=== PATIENT | male | born 1930 | race Caucasian/White ===

== ENCOUNTER 2017-08-01 15:23 | Outpatient (CLI) ==
[2015-07-20 18:18] VITALS: BMI 34.7
--- NOTE | 2017-08-01 16:20 | DI ---
Exam: Lumbar spine complete with obliques. HISTORY: Back pain. Findings: Anterior, lateral, coned-down and bilateral oblique images of the lumbar spine are submitt ed. These demonstrate five [id number], lumbarized vertebrae with straightening of the usual lum bar lordosis. There is multilevel moderate degenerative disc and facet arthropathy. The facet joint s appear aligned and intact. Atherosclerotic calcifications are noted. Impressions: Multilevel moderate degenerative disc and facet arthropathy with no compression fractur e or listhesis in the lumbar spine. Atherosclerosis.
== END 2017-08-01 15:24 | disposition home or self-care (01) ==
LOC: RAD 15:23
PROVIDERS: ATTEND Internal Medicine
DX: M54.9 Dorsalgia, unspecified (principal); M47.9 Spondylosis, unspecified

== ENCOUNTER 2017-09-06 19:59 | Inpatient (IN) ==
[2017-09-06 21:13] VITALS: BMI 34.3
[2017-09-06] MEDS ORDERED: TYLENOL PO PRN (21:28)
[2017-09-06] MEDS ORDERED: VISTARIL INJ IM PRN (21:28)
[2017-09-06] MEDS ORDERED: NITROSTAT SL PRN (21:28)
[2017-09-06] MEDS ORDERED: ATROPINE SULFATE PFS IVP PRN (21:28)
[2017-09-06] MEDS ORDERED: LASIX IVP STA (21:31)
[2017-09-06] MEDS ORDERED: LOMOTIL PO STA (21:34)
[2017-09-06] MEDS ORDERED: LOMOTIL PO PRN (21:34)
[2017-09-06] MEDS ORDERED: ROCEPHIN ONE (21:57)
[2017-09-06] MEDS ORDERED: ROCEPHIN 1 GM in SODIUM CHLORIDE 50 ML IV SCH (22:00)
[2017-09-06] MEDS: DEXTROSE 5%-1/2NS IV SOLUTION 1,000 ML IV SCH (22:12)
[2017-09-06] MEDS: FLAGYL PO SCH (22:13)
[2017-09-06] MEDS: XANAX PO PRN (22:25)
[2017-09-07] MEDS: LASIX IVP SCH (06:28)
[2017-09-07] MEDS: FLAGYL PO SCH ×3 (06:28→20:30)
[2017-09-07] MEDS ORDERED: INSULIN DETEMIR 30 UNIT SQ SCH (06:30)
[2017-09-07] MEDS ORDERED: LEVEMIR SUBCUT SCH (06:30)
[2017-09-07] MEDS: PROTONIX PO SCH (06:33)
--- NOTE | 2017-09-07 07:36 | DI ---
EXAM: Single view of the chest. History: Chest pain and leg edema. Comparison: Chest radiograph 04/29/2015 Findings: Heart is mildly enlarged. Persistent elevation of the right hemidiaphragm. No definite a cute infiltrates. No appreciable pleural fluid and no pneumothorax. No acute osseous abnormalities. Impression: Mild cardiomegaly without acute disease in the chest
[2017-09-07] MEDS ORDERED: NON-FORMULARY MEDICATION (Memantine Hcl/Donepezil Hcl [Namzaric 28 Mg-10 Mg Capsule] 1 EAC PO SCH (09:00)
[2017-09-07] MEDS ORDERED: COZAAR PO SCH (09:00)
[2017-09-07] MEDS ORDERED: NON-FORMULARY MEDICATION (Esomeprazole Magnesium [Nexium] 40 MG) PO SCH (09:00)
[2017-09-07] MEDS: ASPIRIN CHEWABLE PO SCH (09:38)
[2017-09-07] MEDS: LOMOTIL PO SCH ×2 (09:40→20:30)
[2017-09-07] MEDS: COZAAR PO SCH (09:40)
[2017-09-07] MEDS ORDERED: ARICEPT PO SCH (10:00)
[2017-09-07] MEDS ORDERED: NAMENDA PO SCH (10:00)
[2017-09-07] MEDS: NAMENDA PO SCH ×2 (10:14→20:31)
[2017-09-07] MEDS: ARICEPT PO SCH (10:14)
[2017-09-07] MEDS ORDERED: NAMENDA ONE ×2 (10:14→20:31)
[2017-09-07] MEDS: DEXTROSE 5%-1/2NS IV SOLUTION 1,000 ML IV SCH (13:19)
--- NOTE | 2017-09-07 14:37 | CT ---
EXAM: CT of the abdomen pelvis without contrast History: Diarrhea. Comparison: CT abdomen pelvis 10/09/2013 Technique: Multiplanar CT images through the abdomen pelvis were obtained without the administration of IV contrast Findings: Coronary calcifications. Heart is mildly enlarged. Subsegmental atelectasis seen within the lower lungs. No acute osseous abnormalities. No discrete gallstones identified by CT. No focal liver or splenic lesions. Bilateral nephrolithias is measuring up to 3 mm on the right and 3 mm on the left. Adrenal glands are unremarkable. There i s atrophy of the pancreas. No peripancreatic inflammation. No ureteral calculi and no hydronephrosi s. No bowel obstruction. The visualized appendix is not dilated or inflamed. No free air and no as cites. No bladder wall thickening. Prostate is not significantly enlarged. No perirectal inflammat ion. No bowel wall thickening. Impression: 1. No acute intra-abdominal or pelvic process. 2. Nonobstructing bilateral nephrolithiasis. 3. Pancreatic atrophy. 4. Coronary artery disease
--- NOTE | 2017-09-07 16:01 | RS.PTINEVL ---
Subjective - Patient information Date of Evaluation: 09/07/17 Date of Arrival on Unit: 09/06/17 Admitted From:: Home Diagnosis: acute colitis, dehydration, LE edema cellulitis Usual Living Arrangement: With Spouse Living Arrangement Comments: lives at home with elderly spouse Home Environment: House, Stairs (few) Medical History: Hypertension, Dementia, Diabetes, Arthritis Medical History Comments:: sleep apnea, DJD, anemia, chronic renal failure, neuropathy LATEX ALLERGY?: No Medications: see chart Subjective Information/ Patient Comments:: pt's daughter states pt has been using 's w/c due to frequent falls. pt states his legs "give out" - Level of function Prior to this admission, the patient could do the following:: Partially Dependent Ambulation Abilities prior to this admission: pt has assist of family for ADL's Current Level of Function: Partially Dependent Current Equipment Used at Home: Pt uses wifes old w/c and rwx Interventions - Objective Patient Orientation: Person, Place Current Interventions: IV's Range of Motion - ROM Right Upper Extremity AROM: WFL's Left Upper Extremity AROM: WFL's Right Lower Extremity AROM: WFL's Left Lower Extremity AROM: WFL's Muscle Strength - Muscle Strength Right Upper Extremity Strength: Mild Weakness (grossly 4-/5) Left Upper Extremity Strength: Mild Weakness (grossly 4-/5) Right Lower Extremity Strength: Mild Weakness (hip flex 4-/5, knee flex/ext 4-/5 , ankle DF/PF 4-/5) Left Lower Extremity Strength: Mild Weakness (hip flex 4-/5, knee flex/ext 4-/5 , ankle DF/PF 4-/5) Sensation - Sensation Right Upper Extremity Sensation: Intact/Normal Left Upper Extremity Sensation: Intact/Normal Right Lower Extremity Sensation: Intact/Normal Left Lower Extremity Sensation: Intact/Normal Palpation Palpation Findings: None/Normal Balance - Sitting Balance and Reactions Static Sitting Balance: Fair Dynamic Sitting Balance: Poor Sitting Equilibrium Reactions: Delayed Left, Delayed Right Sitting Protective Reactions: Delayed Left, Delayed Right - Standing Balance and Reactions Static Standing Balance: Poor Dynamic Standing Balance: Poor Standing Equilibrium Reactions: Delayed Left, Delayed Right Standing Protective Reactions: Delayed Left, Delayed Right - Comments Balance Assessment Comments: pt with increased lat sway and occasional scissoring Functional Mobility - Bed Mobility Rolling R/L: Mod Assist Supine to Sit: Min Assist, 2 person assist Sit to Supine: Min Assist, 2 person assist - Transfers Sit to Stand: Min Assist, 1 person assist Stand to Sit: Min Assist, 1 person assist - Safety Awareness Safety Awareness: Poor KRYSTA INDEX SCORE: n/a Ambulation - Ambulation Assistive Device Used: Rolling Walker Orthotic/Prosthetic Device: No Distance: 110ft Assistance needed with Ambulation: Min Assist, 1 person assist Quality of Ambulation: requires min x 1 +1 for IV Gait Deviations: Forward posture, Short stride, Deviates from path Ambulation Comments: pt amb with flexed posture, decreased step length, deviation from path Factors Affecting Ambulation: Decreased Balance, Weakness, Decreased Coordination, Decreased Safety, Cognitive Status, Limited Endurance Treatment time - Time with patient Total treatment time: 26 Patient Education - Education Patient Education: Activity Modification, Education of Plan of Care Teaching Recipient: Patient, Family (discussion with pt and dtr regarding POC and plans to dc home) Teaching Methods: Discussion Assessment - Assessment Problem List:: Decreased level of function, Requires training/education, Decreased safety/Risk of falls, Weakness, Cognitive status limits abilities Rehab Potential: Good Further Therapy Indicated?: Yes Comments: pt would benefit from rwx as well as BSC for home due to decreased strength balance and frequent falls. Evaluation Complexity: HISTORY: Medium (DM, OA, neuopathy, falls), EXAM OF BODY SYSTEMS: Medium (strength balance, posture, gait, transfers), CLINICAL PRESENTATION: Medium (evolving), CLINICAL DECISION MAKING: Medium Short Term Goals GOAL #1: pt demonstrate independence rolling and scooting in bed Goal to be met by: 09/10/17 GOAL #2: Transfer sup to/from sit min x 1 sit to/from stand CGA Goal to be met by: 09/10/17 GOAL #3: pt amb with rwx 125ft with CGA with improved posture Goal to be met by: 09/10/17 Senior Living Goals GOAL #1: pt transfer sup to/from sit to/from stand CGA Goal to be met by: 09/13/17 GOAL #2: pt amb with rwx functional household distances with CGA with no LOB Goal to be met by: 09/13/17 GOAL #3: Improve BLE strength 4 to 4+/5 Goal to be met by: 09/13/17 Plan Plan of Care: Therapeutic EX, Therapeutic Activity Other:: gait training Frequency of Treatment: 1-2 X day, as tolerated Duration of Treatment: 6 days Anticipated Discharge Destination: Home Treatment Diagnosis (ICD 10 Codes): Z91.81 risk of falls. R26.81 balance impaired. R 26.2 difficulty walking Has the Physician been added for Co-signature?: Yes
[2017-09-07] MEDS: LEVEMIR SUBCUT SCH (18:20)
[2017-09-07] MEDS: ROCEPHIN 1 GM in SODIUM CHLORIDE 50 ML IV SCH (20:29)
[2017-09-07] MEDS: HUMULIN R SUBCUT PRN (20:29)
[2017-09-07] MEDS: XANAX PO PRN (20:30)
[2017-09-07] MEDS: NEURONTIN PO SCH (20:30)
[2017-09-07] MEDS: TORADOL IVP PRN (23:40)
[2017-09-08] MEDS: DEXTROSE 5%-1/2NS IV SOLUTION 1,000 ML IV SCH (03:50)
[2017-09-08] MEDS: FLAGYL PO SCH ×3 (05:59→21:44)
[2017-09-08] MEDS: PROTONIX PO SCH (05:59)
[2017-09-08] MEDS: LASIX IVP SCH (06:18)
[2017-09-08] MEDS: ASPIRIN CHEWABLE PO SCH (08:10)
[2017-09-08] MEDS: K-DUR PO SCH (09:49)
[2017-09-08] MEDS: COZAAR PO SCH (09:50)
[2017-09-08] MEDS: ARICEPT PO SCH (09:50)
[2017-09-08] MEDS ORDERED: NAMENDA ONE (09:50)
[2017-09-08] MEDS: NAMENDA PO SCH ×2 (09:50→21:44)
[2017-09-08] MEDS: LOMOTIL PO SCH ×2 (09:52→21:44)
[2017-09-08] MEDS: LEVEMIR SUBCUT SCH ×2 (09:56→17:42)
[2017-09-08] MEDS: HUMULIN R SUBCUT PRN ×3 (11:50→21:45)
--- NOTE | 2017-09-08 13:29 | PCM.PROG ---
Attending Provider: ATTENDING PROVIDER: Dr. SHOAIB MATOS This patient is seen with Digna Quintero, Nurse Practitioner. DATE OF SERVICE: 09/08/17 SUBJECTIVE: This 87 year old WHITE/ M was hospitalized 09/06/17. The patient is lying in bed resting comfortably. He has had one stool this morning. Blood pressure improved. He has been eating well. REVIEW OF SYSTEMS: CONSTITUTIONAL: No night sweats. No fatigue, malaise, lethargy. No fever or chills. HEENT: Eyes: No visual changes. No eye pain. No eye discharge. ENT: No runny nose. No epistaxis. No sinus pain. No odynophagia. No congestion. RESPIRATORY: No cough, no congestion. No hemoptysis. No shortness of breath. CARDIOVASCULAR: No angina symptoms. No CHF symptoms. No atypical chest pain for CAD. No palpitations. No orthopnea.. GASTROINTESTINAL: Diarrhea improving. No abdominal pain. No nausea or vomiting. No hematemesis. No hematochezia. GENITOURINARY: No urgency. No frequency. No dysuria. No hematuria. No obstructive symptoms. No discharge. No pain. No significant abnormal bleeding. MUSCULOSKELETAL: No musculoskeletal pain; no joint swelling. NEUROLOGICAL: Awake, alert, oriented to time, place and person. No headache. No neck pain. No syncope. No seizures. No dizziness. PSYCHIATRIC: Not anxious. No depression. No suicidal thoughts. No homicidal thoughts. SKIN: No rash. No lesions. No wounds. ENDOCRINE: No unexplained weight loss. No weight gain. HEMATOLOGIC/LYMPHATIC: No anemia. No purpura. No petechiae. No prolonged or excessive bleeding. No palpable lymph nodes. PHYSICAL EXAMINATION: GENERAL: The patient is awake, alert and oriented, lying in bed in no distress. VITAL SIGNS: Temperature 97.8 F, Pulse 53, Respiratory Rate 16, BP 124/69, Pulse Ox 93% HEENT: Head normocephalic, atraumatic. Eyes: Extraocular muscles are intact. Pupils are equal, round and reactive to light and accommodation. Ears: No lesions. Nose appeared normal. Throat: No exudate or erythema. NECK: Supple. No JVD, no carotid bruit. No lymphadenopathy or thyromegaly. LUNGS: Diminished breath sounds. Clear to auscultation. Percussion note normal. Chest symmetrical. HEART: S1, S2, no S3. No murmurs. No cyanosis or clubbing. No ascites. Pulses: Dorsalis pedis and posterior tibial pulses +1 to +2 both sides. ABDOMEN: Soft. Non-tender. Bowel sounds active. No CVA tenderness. No mass felt. EXTREMITIES: Significantly improved trace leg edema. Full range of motion of all extremities, equal. NEUROLOGIC: No focal deficit. Cranial nerves II through XII are grossly intact. No headache, no double vision or headache. SKIN: Not dry. Intact. Turgor-normal. LYMPHATIC: No palpable lymph nodes/no lymphedema. MUSCULOSKELETAL: Normal joints with no swelling. Muscle tone is normal. LAB REVIEW: 09/08/17 04:40 09/08/17 04:40 09/08/17 04:40: Sodium 138, Potassium 3.4 L, Chloride 101, Carbon Dioxide 26, Anion Gap 14.4, BUN 25 H, Creatinine 1.54 H, Estimated GFR (MDRD) 43.00, BUN/ Creatinine Ratio 16.23, Glucose 82 D, Calcium 8.7, Total Bilirubin 0.7, AST 10 L, ALT 10 L, Alkaline Phosphatase 60, Total Protein 6.0, Albumin 3.0 L, Globulin 3.0, Albumin/Globulin Ratio 1.00 09/08/17 04:40: WBC 8.30, RBC 4.13 L, Hgb 12.2 L, Hct 35.7 L, MCV 86.4, MCH 29.5 , MCHC 34.2, RDW Coeff of Danielle 13.4, Plt Count 124 L, Immature Gran % (Auto) 0.2 , Neut % (Auto) 64.8, Lymph % (Auto) 22.7, [place] % (Auto) 7.1, Eos % (Auto) 4.6, Baso % (Auto) 0.6, Immature Gran # (Auto) 0.0, Neut # (Auto) 5.4, Lymph # (Auto ) 1.9, [place] # (Auto) 0.6, Eos # (Auto) 0.4, Baso # (Auto) 0.1 09/06/17 21:55: Thyroxine (T4) 9.4 ASSESSMENT: 1. ACUTE COLITIS 2. DEHYDRATION IMPROVING 3. HYPOKALEMIA 4. LEG EDEMA PLAN: 1. Echocardiogram 2. Potassium 40 mEq daily 3. D/C IV Lasix 4. Start Lasix 20 mg p.o. daily Plan and coordination of the patient's care discussed in the presence of Sales & Service Associate and nurse. CONDITION: Stable SCRIBED BY: ERNESTINE MANRIQUE Used Car Manager scribed while in presence of service performed by Dr. Matos/Digna Quintero APRN on 09/08/17 ([id number])
[2017-09-08] MEDS: TORADOL IVP PRN ×2 (14:09→21:45)
--- NOTE | 2017-09-08 14:54 | PN ---
DATE OF SERVICE: 09/07/17 SUBJECTIVE: 87 year old white male hospitalized with multiple problems like acute colitis with diarrhea, which seems to be doing better. The patient is still kind of hard of hearing and answers the questions slowly, but he is alert and oriented to person and place. The patient's other problems were leg edema with small superficial stage I ulcers on a few toes on the right side and one on the second toe on the left. The patient's condition has improved. REVIEW OF SYSTEMS: CONSTITUTIONAL: No night sweats. No fatigue, malaise, lethargy. No fever or chills. HEENT: Eyes: No visual changes. No eye pain. No eye discharge. ENT: No runny nose. No epistaxis. No sinus pain. No sore throat. No odynophagia. No congestion. RESPIRATORY: No cough, no congestion. No hemoptysis. No shortness of breath. CARDIOVASCULAR: No angina symptoms. No CHF symptoms. No atypical chest pain for CAD. No palpitations. No orthopnea. GASTROINTESTINAL: No abdominal pain. No nausea or vomiting. No diarrhea or constipation. No hematemesis. No hematochezia. GENITOURINARY: No urgency. No frequency. No dysuria. No hematuria. No obstructive symptoms. No discharge. No pain. No significant abnormal bleeding. MUSCULOSKELETAL: No musculoskeletal pain; no joint swelling. NEUROLOGICAL: No headache. No neck pain. No syncope. No seizures. No dizziness. PSYCHIATRIC: Not anxious. No depression. No suicidal thoughts. No homicidal thoughts. SKIN: No rash. No lesions. No wounds. ENDOCRINE: No unexplained weight loss. No weight gain. HEMATOLOGIC/LYMPHATIC: No anemia. No purpura. No petechiae. No prolonged or excessive bleeding. No palpable lymph nodes. PHYSICAL EXAMINATION: GENERAL: The patient is feeling better and breathing better. Oriented to time , place and person. VITAL SIGNS: Temperature 97, pulse 55, respiratory rate 16, blood pressure 183/ 75, pulse ox 98%. HEENT: Head normocephalic, atraumatic. Eyes: Extraocular muscles are intact. Pupils are equal, round and reactive to light and accommodation. Ears: No lesions. Nose appeared normal. Throat: No exudate or erythema. NECK: Supple. No JVD, no carotid bruit. No lymphadenopathy or thyromegaly. LUNGS: Decreased breath sounds, but clear. Percussion note normal. Chest symmetrical. HEART: S1, S2, no S3. No murmurs. No cyanosis or clubbing. No ascites. Pulses: Dorsalis pedis and posterior tibial pulses +1 to +2 both sides. ABDOMEN: Soft. Nontender. Bowel sounds active. No CVA tenderness. No mass felt. EXTREMITIES: Trace edema. Leg edema has practically subsided and the ulcers are dried up with no drainage. Of course, the patient is on antibiotics. NEUROLOGIC: No focal deficit. Cranial nerves II through XII are grossly intact. No headache, no double vision or headache. SKIN: Not dry. Intact. Turgor - normal. LYMPHATIC: No palpable lymph nodes/no lymphedema. MUSCULOSKELETAL: Normal joints with no swelling. Muscle tone is normal. LABS: Blood sugar was 269 this morning. Creatinine was 1.5, BUN 22. ASSESSMENT: 1. ACUTE COLITIS, RULE OUT C-DIFF. SEEMS TO BE SOMEWHAT BETTER. THE PATIENT' S APPETITE HAS IMPROVED 2. DEHYDRATION SEEMS TO HAVE IMPROVED WITH GOOD SKIN TURGOR ON PHYSICAL EXAMINATION. 3. THE PATIENT WAS GIVEN IV LASIX FOR LEG EDEMA. 4. SMALL SUPERFICIAL STAGE I ULCERS LIKELY FROM LEG EDEMA OR COULD BE FROM VASCULAR PROBLEM. DISCUSSED WITH THE PATIENT. 5. DIABETES MELLITUS DISCUSSED WITH ITS COMPLICATIONS 6. THE PATIENT MAY HAVE PERIPHERAL ARTERIAL DISEASE PLAN: 1. We will order arterial studies when the patient is discharged. 2. Strongly advised to cut down on his diet. The patient is noncompliant. He laughs about his diet. He says that no matter what I say he is going to eat whatever he wants to eat and not going to take anymore medicine than what he is taking. He is pleasantly stubborn. BMI is 35. CONDITION: Stable. PROGNOSIS: Guarded. TIME SPENT: More than 30 minutes. Plan and coordination of the patient's care discussed in the presence of nurse. RAYMOND
[2017-09-08] MEDS: ROCEPHIN 1 GM in SODIUM CHLORIDE 50 ML IV SCH (21:44)
[2017-09-08] MEDS: XANAX PO PRN (21:44)
[2017-09-08] MEDS: NEURONTIN PO SCH (21:44)
[2017-09-09] MEDS: FLAGYL PO SCH ×3 (06:08→20:10)
[2017-09-09] MEDS: PROTONIX PO SCH (06:09)
[2017-09-09] MEDS: LASIX TAB PO SCH (06:09)
[2017-09-09] MEDS: K-DUR PO SCH (08:33)
[2017-09-09] MEDS: ASPIRIN CHEWABLE PO SCH (08:33)
[2017-09-09] MEDS: ARICEPT PO SCH (08:33)
[2017-09-09] MEDS: LOMOTIL PO SCH ×2 (08:34→20:09)
[2017-09-09] MEDS: NAMENDA PO SCH ×2 (08:35→20:10)
[2017-09-09] MEDS: COZAAR PO SCH (08:40)
[2017-09-09] MEDS: LEVEMIR SUBCUT SCH ×2 (08:46→17:25)
[2017-09-09] MEDS: HUMULIN R SUBCUT PRN ×3 (12:22→20:10)
[2017-09-09] MEDS: ROCEPHIN 1 GM in SODIUM CHLORIDE 50 ML IV SCH (20:09)
[2017-09-09] MEDS: NEURONTIN PO SCH (20:10)
[2017-09-09] MEDS: XANAX PO PRN (20:40)
[2017-09-09] MEDS: TORADOL IVP PRN (20:40)
[2017-09-10] MEDS: MORPHINE 4 MG/ML VIAL IVP PRN (02:46)
[2017-09-10] MEDS: HUMULIN R SUBCUT PRN ×4 (05:38→20:10)
[2017-09-10] MEDS: FLAGYL PO SCH ×3 (05:39→20:07)
[2017-09-10] MEDS: LASIX TAB PO SCH (05:39)
[2017-09-10] MEDS: PROTONIX PO SCH (05:39)
[2017-09-10] MEDS: LOMOTIL PO SCH ×2 (08:46→20:07)
[2017-09-10] MEDS: NAMENDA PO SCH ×2 (08:46→20:08)
[2017-09-10] MEDS: ASPIRIN CHEWABLE PO SCH (08:46)
[2017-09-10] MEDS: ARICEPT PO SCH (08:47)
[2017-09-10] MEDS: K-DUR PO SCH (08:47)
[2017-09-10] MEDS: COZAAR PO SCH (08:47)
[2017-09-10] MEDS: LEVEMIR SUBCUT SCH ×2 (08:48→17:23)
[2017-09-10] MEDS: ROCEPHIN 1 GM in SODIUM CHLORIDE 50 ML IV SCH (20:05)
[2017-09-10] MEDS: XANAX PO PRN (20:08)
[2017-09-10] MEDS: NEURONTIN PO SCH (20:08)
[2017-09-10] MEDS: TORADOL IVP PRN (20:23)
[2017-09-11] MEDS: MORPHINE 4 MG/ML VIAL IVP PRN ×2 (00:02→14:14)
[2017-09-11] MEDS: PROTONIX PO SCH (05:30)
[2017-09-11] MEDS: FLAGYL PO SCH ×3 (05:31→20:32)
[2017-09-11] MEDS: NAMENDA PO SCH ×2 (08:16→20:32)
[2017-09-11] MEDS: LOMOTIL PO SCH ×2 (08:16→20:32)
[2017-09-11] MEDS: K-DUR PO SCH (08:16)
[2017-09-11] MEDS: ASPIRIN CHEWABLE PO SCH (08:16)
[2017-09-11] MEDS: LEVEMIR SUBCUT SCH ×2 (08:17→18:05)
[2017-09-11] MEDS: ARICEPT PO SCH (08:17)
[2017-09-11] MEDS: COZAAR PO SCH (08:17)
[2017-09-11] MEDS ORDERED: DECADRON 4 MG/ML SDV IM STA (08:18)
[2017-09-11] MEDS ORDERED: SODIUM CHLORIDE 1,000 ML IV SCH (08:30)
--- NOTE | 2017-09-11 09:53 | PCM.PROG ---
Attending Provider: ATTENDING PROVIDER: Dr. SHOAIB MATOS This patient is seen with Digna Quintero, Nurse Practitioner. DATE OF SERVICE: 09/11/17 SUBJECTIVE: This 87 year old WHITE/ M was hospitalized 09/06/17. The patient is sitting in the chair, alert. He had right leg pain last night radiating to foot. He has history of falls at home. He is still with diarrhea, is eating well. REVIEW OF SYSTEMS: CONSTITUTIONAL: Weakness. No night sweats. No malaise, lethargy. No fever or chills. HEENT: Eyes: No visual changes. No eye pain. No eye discharge. ENT: No runny nose. No epistaxis. No sinus pain. No odynophagia. No congestion. RESPIRATORY: No cough, no congestion. No hemoptysis. No shortness of breath. CARDIOVASCULAR: No angina symptoms. No CHF symptoms. No atypical chest pain for CAD. No palpitations. No orthopnea.. GASTROINTESTINAL: Diarrhea. No abdominal pain. No nausea or vomiting. No hematemesis. No hematochezia. GENITOURINARY: No urgency. No frequency. No dysuria. No hematuria. No obstructive symptoms. No discharge. No pain. No significant abnormal bleeding. MUSCULOSKELETAL: No musculoskeletal pain; no joint swelling. NEUROLOGICAL: Awake, alert, oriented to time, place and person. No headache. No neck pain. No syncope. No seizures. No dizziness. PSYCHIATRIC: Not anxious. No depression. No suicidal thoughts. No homicidal thoughts. SKIN: No rash. No lesions. No wounds. ENDOCRINE: No unexplained weight loss. No weight gain. HEMATOLOGIC/LYMPHATIC: No anemia. No purpura. No petechiae. No prolonged or excessive bleeding. No palpable lymph nodes. PHYSICAL EXAMINATION: GENERAL: The patient is awake, alert and oriented, sitting in chair in no distress. VITAL SIGNS: Temperature 97.2 F, Pulse 76, Respiratory Rate 18, BP 142/69, Pulse Ox 95% HEENT: Head normocephalic, atraumatic. Eyes: Extraocular muscles are intact. Pupils are equal, round and reactive to light and accommodation. Ears: No lesions. Nose appeared normal. Throat: No exudate or erythema. NECK: Supple. No JVD, no carotid bruit. No lymphadenopathy or thyromegaly. LUNGS: Diminished breath sounds. Clear to auscultation. Percussion note normal. Chest symmetrical. HEART: S1, S2, no S3. No murmurs. No cyanosis or clubbing. No ascites. Pulses: Dorsalis pedis and posterior tibial pulses +1 to +2 both sides. ABDOMEN: Soft. Non-tender. Bowel sounds active. No CVA tenderness. No mass felt. EXTREMITIES: Trace edema. Full range of motion of all extremities, equal. NEUROLOGIC: No focal deficit. Cranial nerves II through XII are grossly intact. No headache, no double vision or headache. SKIN: Warm and dry. Intact. Turgor-normal. LYMPHATIC: No palpable lymph nodes/no lymphedema. MUSCULOSKELETAL: Normal joints with no swelling. Muscle tone is normal. LAB REVIEW: 09/11/17 04:15 09/11/17 04:15 09/11/17 04:15: Sodium 141, Potassium 4.6, Chloride 105, Carbon Dioxide 29, Anion Gap 11.6, BUN 45 H, Creatinine 2.10 H, Estimated GFR (MDRD) 30.00, BUN/ Creatinine Ratio 21.42, Glucose 82 D, Calcium 9.0, Total Bilirubin 0.3, AST 21 , ALT 17, Alkaline Phosphatase 59, Total Protein 5.6 L, Albumin 2.9 L, Globulin 2.7, Albumin/Globulin Ratio 1.07 09/11/17 04:15: WBC 8.25, RBC 3.85 L, Hgb 11.6 L, Hct 35.2 L, MCV 91.4, MCH 30.1 , MCHC 33.0, RDW Coeff of Danielle 14.1, Plt Count 128 L, Immature Gran % (Auto) 0.2 , Neut % (Auto) 56.8, Lymph % (Auto) 29.7, [place] % (Auto) 7.3, Eos % (Auto) 5.0, Baso % (Auto) 1.0, Immature Gran # (Auto) 0.0, Neut # (Auto) 4.7, Lymph # (Auto ) 2.5, [place] # (Auto) 0.6, Eos # (Auto) 0.4, Baso # (Auto) 0.1 ASSESSMENT: 1. ACUTE COLITIS 2. DEHYDRATION IMPROVING 3. HYPOKALEMIA 4. LEG EDEMA 5. RIGHT LEG PAIN (SCIATICA) PLAN: 1. X-ray L-spine 2. 1 cc Decadron 3. IV fluids one bag Plan and coordination of the patient's care discussed in the presence of Zyglo Inspector and nurse. CONDITION: Stable SCRIBED BY: ERNESTINE MANRIQUE Pillowcase Cleaner scribed while in presence of service performed by Dr. Matos/Digna Quintero APRN on 09/11/17 ([id number])
[2017-09-11] MEDS: HUMULIN R SUBCUT PRN ×3 (11:07→20:51)
--- NOTE | 2017-09-11 14:19 | PN ---
DATE OF SERVICE: 09/08/17 SUBJECTIVE: The patient was seen and examined with the nurse practitioner. The patient's condition is stable. His leg edema has subsided, educated about diabetes and its complication. He is noncompliant. The patient's prognosis is poor. The patient will be discharged home on antibiotics and p.o. Lasix. CONDITION: Stable. TIME SPENT: More than 30 minutes. Plan and coordination of the patient's care discussed in the presence of nurse. RAYMOND
--- NOTE | 2017-09-11 14:30 | PN ---
DATE OF SERVICE: 09/09/17 SUBJECTIVE: The patient was hospitalized with edema, shortness of breath, early CHF with cellulitis at tip of some of the toes, extreme weakness. The patient's condition has improved. He is up and about. The is in the room. REVIEW OF SYSTEMS: CONSTITUTIONAL: No night sweats. No fatigue, malaise, lethargy. No fever or chills. HEENT: Eyes: No visual changes. No eye pain. No eye discharge. ENT: No runny nose. No epistaxis. No sinus pain. No sore throat. No odynophagia. No congestion. RESPIRATORY: No cough, no congestion. No hemoptysis. No shortness of breath. CARDIOVASCULAR: No angina symptoms. No CHF symptoms. No atypical chest pain for CAD. No palpitations. No orthopnea. GASTROINTESTINAL: No abdominal pain. No nausea or vomiting. No diarrhea or constipation. No hematemesis. No hematochezia. GENITOURINARY: No urgency. No frequency. No dysuria. No hematuria. No obstructive symptoms. No discharge. No pain. No significant abnormal bleeding. MUSCULOSKELETAL: No musculoskeletal pain; no joint swelling. NEUROLOGICAL: No headache. No neck pain. No syncope. No seizures. No dizziness. PSYCHIATRIC: Not anxious. No depression. No suicidal thoughts. No homicidal thoughts. SKIN: No rash. No lesions. No wounds. ENDOCRINE: No unexplained weight loss. No weight gain. HEMATOLOGIC/LYMPHATIC: No anemia. No purpura. No petechiae. No prolonged or excessive bleeding. No palpable lymph nodes. PHYSICAL EXAMINATION: HEENT: Head normocephalic, atraumatic. Eyes: Extraocular muscles are intact. Pupils are equal, round and reactive to light and accommodation. Ears: No lesions. Nose appeared normal. Throat: No exudate or erythema. NECK: Supple. No JVD, no carotid bruit. No lymphadenopathy or thyromegaly. LUNGS: Clear to auscultation. Percussion note normal. Chest symmetrical. HEART: S1, S2, no S3. No murmurs. No cyanosis or clubbing. No ascites. Pulses: Dorsalis pedis and posterior tibial pulses +1 to +2 both sides. ABDOMEN: Soft. Nontender. Bowel sounds active. No CVA tenderness. No mass felt. EXTREMITIES: Leg edema +1 to trace. The superficial ulcers have been drying up. Full range of motion of all extremities, equal. NEUROLOGIC: No focal deficit. Cranial nerves II through XII are grossly intact. No headache, no double vision or headache. SKIN: Not dry. Intact. Turgor - normal. LYMPHATIC: No palpable lymph nodes/no lymphedema. MUSCULOSKELETAL: Normal joints with no swelling. Muscle tone is normal. ASSESSMENT: 1. CELLULITIS OF THE TOES, RESOLVED. SUPERFICIAL ULCERS, ISCHEMIC ULCERS COULD BE FROM PERIPHERAL ARTERIAL DISEASE. 2. LEG EDEMA HAS SUBSIDED TO SOME EXTENT. EDUCATION CARRIED OUT ABOUT: The patient was explained about arterial studies. Also explained about diabetes and its complications. The patient is noncompliant, never follows the lifestyle , never takes his medicine on a regular basis. CHF discussed with him. The is present in the room. TIME SPENT: More than 30 minutes. Plan and coordination of the patient's care discussed in the presence of nurse. RAYMOND
--- NOTE | 2017-09-11 14:38 | PN ---
DATE OF SERVICE: 09/10/17 SUBJECTIVE: The patient is up and about doing well. No symptoms of CHF, feeling better. Oriented to place and person. The is in the room. REVIEW OF SYSTEMS: CONSTITUTIONAL: No night sweats. No fatigue, malaise, lethargy. No fever or chills. HEENT: Eyes: No visual changes. No eye pain. No eye discharge. ENT: No runny nose. No epistaxis. No sinus pain. No sore throat. No odynophagia. No congestion. RESPIRATORY: No cough, no congestion. No hemoptysis. No shortness of breath. CARDIOVASCULAR: No angina symptoms. No CHF symptoms. No atypical chest pain for CAD. No palpitations. No orthopnea. GASTROINTESTINAL: No abdominal pain. No nausea or vomiting. No diarrhea or constipation. No hematemesis. No hematochezia. GENITOURINARY: No urgency. No frequency. No dysuria. No hematuria. No obstructive symptoms. No discharge. No pain. No significant abnormal bleeding. MUSCULOSKELETAL: No musculoskeletal pain; no joint swelling. NEUROLOGICAL: No headache. No neck pain. No syncope. No seizures. No dizziness. PSYCHIATRIC: Not anxious. No depression. No suicidal thoughts. No homicidal thoughts. SKIN: No rash. No lesions. No wounds. ENDOCRINE: No unexplained weight loss. No weight gain. HEMATOLOGIC/LYMPHATIC: No anemia. No purpura. No petechiae. No prolonged or excessive bleeding. No palpable lymph nodes. PHYSICAL EXAMINATION: HEENT: Head normocephalic, atraumatic. Eyes: Extraocular muscles are intact. Pupils are equal, round and reactive to light and accommodation. Ears: No lesions. Nose appeared normal. Throat: No exudate or erythema. NECK: Supple. No JVD, no carotid bruit. No lymphadenopathy or thyromegaly. LUNGS: Clear to auscultation. Percussion note normal. Chest symmetrical. HEART: S1, S2, no S3. No murmurs. No cyanosis or clubbing. No ascites. Pulses: Dorsalis pedis and posterior tibial pulses +1 to +2 both sides. ABDOMEN: Soft. Nontender. Bowel sounds active. No CVA tenderness. No mass felt. EXTREMITIES: No edema. Full range of motion of all extremities, equal. NEUROLOGIC: No focal deficit. Cranial nerves II through XII are grossly intact. No headache, no double vision or headache. SKIN: Not dry. Intact. Turgor - normal. LYMPHATIC: No palpable lymph nodes/no lymphedema. MUSCULOSKELETAL: Normal joints with no swelling. Muscle tone is normal. EDUCATION CARRIED OUT ABOUT: Diabetes mellitus. I strongly advised arterial studies. He says he will think about it. CHF discussed in detail along with the . The patient's prognosis is poor considering patient's noncompliance and advanced disease. TIME SPENT: 60 minutes. Plan and coordination of the patient's care discussed in the presence of nurse. RAYMOND
[2017-09-11] MEDS: ROCEPHIN 1 GM in SODIUM CHLORIDE 50 ML IV SCH (20:32)
[2017-09-11] MEDS: NEURONTIN PO SCH (20:33)
[2017-09-12] MEDS: XANAX PO PRN (00:12)
[2017-09-12] MEDS: HUMULIN R SUBCUT PRN ×3 (06:21→16:12)
[2017-09-12] MEDS ORDERED: KAYEXALATE SUSP PO STA (08:12)
[2017-09-12] MEDS: ASPIRIN CHEWABLE PO SCH (08:30)
[2017-09-12] MEDS: LOMOTIL PO SCH (08:30)
[2017-09-12] MEDS: COZAAR PO SCH (08:31)
[2017-09-12] MEDS: NAMENDA PO SCH (08:31)
[2017-09-12] MEDS: ARICEPT PO SCH (08:31)
[2017-09-12] MEDS: FLAGYL PO SCH ×2 (08:31→13:02)
[2017-09-12] MEDS: PROTONIX PO SCH (08:32)
[2017-09-12] MEDS: LEVEMIR SUBCUT SCH (08:33)
--- NOTE | 2017-09-12 09:48 | US ---
EXAM: Ultrasound retroperitoneal complete. HISTORY: Renal disease, elevated renal function tests. COMPARISON: 08/29/2013. TECHNIQUE: Multiple adair scale and color Doppler images. FINDINGS: Right kidney measures 11.1 x 6.3 x 4.3 cm. The left kidney measures 12.5 x 4.7 x 4.1 cm. Cortical thickness in both kidneys is normal. There is no hydronephrosis. Urinary bladder is collapsed and not well evaluated. IMPRESSION: No acute sonographic abnormality of the kidneys.
[2017-09-12 14:58] VITALS: TEMP 97.5
--- NOTE | 2017-09-12 15:36 | CM.DICTOOL ---
ADMISSION: 09/06/17 19:59 DISCHARGE: 09/12/17 DATE OF SERVICE: 09/12/17 FINAL DIAGNOSIS ACUTE COLITIS DEHYDRATION, IMPROVED HYPOKALEMIA/HYPERKALEMIA LEG EDEMA, IMPROVED LEG PAIN, GREATER ON THE RIGHT WEIGHT LOSS CAD HYPERTENSION DYSLIPIDEMIA CHF COPD SLEEP APNEA (DECLINES C-PAP) PVD DM, TYPE 2- UNCONTROLLED GERD CHRONIC KIDNEY DISEASE (DR. 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, 2015 DEMENTIA ANXIETY CATARACT EXTRACTIONS, 2003 NEVER SMOKER LAST VITALS Temp Pulse Resp BP Pulse Ox 97.8 F 79 20 152/76 H 93 L 09/12/17 09:43 09/12/17 09:43 09/12/17 09:43 09/12/17 09:43 09/12/17 09:43 TAKE THESE MEDICATIONS AT HOME Alprazolam (Xanax) 0.5 mg PO BEDTIME PRN PRN Reason: anxiety, restlessness Last Admin: 09/12/17 00:12 Dose: 0.5 mg Aspirin (Aspirin Chewable) 81 mg PO DAILYWM [facility] Last Admin: 09/12/17 08:30 Dose: 81 mg Diphenoxylate HCl/Atropine (Lomotil) 1 tab PO BID PRN #15 ONLY Last Admin: 09/12/17 08:30 Dose: 1 tab Donepezil HCl (Aricept) 10 mg PO DAILY [facility] Last Admin: 09/12/17 08:31 Dose: 10 mg Fursemide (Lasix) 20 mg PO DAILY x5 DAYS/WEEK, MON - MON, SKIP MON AND SUNDAYS Gabapentin (Neurontin) 300 mg PO BEDTIME [facility] Last Admin: 09/11/17 20:33 Dose: 300 mg Insulin Detemir (Levemir) 30 unit SUBCUT BIDPC [facility] Last Admin: 09/12/17 08:33 Dose: 30 unit Lomotil 2.5-0.025 mg one tablet PO BID PRN DIARRHEA Losartan Potassium (Cozaar) 100 mg PO DAILY [facility] Last Admin: 09/12/17 08:31 Dose: 100 mg Memantine (Namenda) 10 mg PO Q12HR [facility] Last Admin: 09/12/17 08:31 Dose: 10 mg Pantoprazole Sodium (Protonix) 40 mg PO QDAC [facility] Last Admin: 09/12/17 08:32 Dose: 40 mg ALLERGIES clarithromycin [From Biaxin] Adverse Reaction (Verified 09/06/17 21:44) levofloxacin [From Levaquin] Adverse Reaction (Verified 09/06/17 21:44) HOME MEDICATION CHANGES MADE DURING THIS HOSPITALIZATION LOSARTAN POTASSIUM (COZAAR) 25 MG PO DAILY INCREASED TO 100 MG PO DAILY SEE NEW PRESCRIPTIONS NEW PRESCRIPTIONS: DONEPEZIL HCL (ARICEPT) 10 MG, TAKE ONE TABLET BY MOUTH DAILY GABAPENTIN (NEURONTIN) 300 MG, TAKE ONE TABLET BY MOUTH AT BEDTIME LOSARTAN POTASSIUM (COZAAR) 100 MG, TAKE ONE TABLET BY MOUTH DAILY LASIX 20 MG, TAKE ONE TABLET BY MOUTH DAILY ON MONDAY THROUGH MONDAY (5 DAYS PER WEEK) LOMOTIL 1 TABLET BY MOUTH TWICE DAILY IF NEEDED (PRN) FOR DIARRHEA SMOKING: NEVER SMOKER DISEASE SPECIFIC EDUCATION: COLITIS DEHYDRATION HYPOKALEMIA/HYPERKALEMIA LEG PAIN LEG EDEMA HOME MEDICATIONS NEW PRESCRIPTIONS REFERRALS FOLLOW UP MEDICAL EQUIPMENT (BEDSIDE COMMODE) LAB REVIEW: 09/12/17 04:30 09/12/17 13:30 09/12/17 13:30: Potassium 4.9 09/12/17 06:28: Potassium 5.8 H 09/12/17 04:30: Sodium 138, Potassium 6.6 H* D, Chloride 106, Carbon Dioxide 26 , Anion Gap 12.6, BUN 47 H, Creatinine 1.75 H, Estimated GFR (MDRD) 37.00, BUN/ Creatinine Ratio 26.85, Glucose 293 H, Calcium 9.6, Total Bilirubin 0.5, AST 18 , ALT 19, Alkaline Phosphatase 71, Total Protein 6.5, Albumin 3.3 L, Globulin 3.2, Albumin/Globulin Ratio 1.03 09/12/17 04:30: WBC 14.37 H D, RBC 4.13 L, Hgb 12.2 L, Hct 37.8 L, MCV 91.5, MCH 29.5, MCHC 32.3, RDW Coeff of Danielle 14.0, Plt Count 144, Immature Gran % (Auto ) 0.7, Neut % (Auto) 86.2, Lymph % (Auto) 8.8 L, [place] % (Auto) 4.0, Eos % (Auto ) 0.0, Baso % (Auto) 0.3, Immature Gran # (Auto) 0.1, Neut # (Auto) 12.4 H, Lymph # (Auto) 1.3, [place] # (Auto) 0.6, Eos # (Auto) 0.0, Baso # (Auto) 0.0 PLAN: DISCHARGE HOME TODAY RETURN TO SEE DR. MATOS IN HIS OFFICE ON 09/18/17 AT 10:30 A.M. KEEP YOUR APPOINTMENT TO HAVE LOWER EXTREMITY ARTERIAL STUDIES AT [facility] 09/14/17 AT 12:30 A.M. BRING A PHOTO IDENTIFICATION BRING YOUR MEDICARE CARD [employer] WILL DELIVER A BEDSIDE COMMODE TO YOUR HOME IN THE NEXT FEW DAYS. PHONE NUMBER [phone] RESUME YOUR HOME MEDICATIONS PER LIST PROVIDED BY THE NURSING STAFF PLEASE NOTE THE INCREASE IN YOUR LOSARTAN POTASSIUM (COZAAR) TO 100 MG PO DAILY DO NOT TAKE YOUR BUMETANIDE (BUMEX) NEW PRESCRIPTIONS DONEPEZIL HCL (ARICEPT) 10 MG, TAKE ONE TABLET BY MOUTH DAILY GABAPENTIN (NEURONTIN) 300 MG, TAKE ONE TABLET BY MOUTH AT BEDTIME LOSARTAN POTASSIUM (COZAAR) 100 MG, TAKE ONE TABLET BY MOUTH DAILY LASIX 20 MG, TAKE ONE TABLET BY MOUTH DAILY ON MONDAY THROUGH MONDAY (5 DAYS PER WEEK) LOMOTIL 1 TABLET BY MOUTH TWICE DAILY IF NEEDED (PRN) FOR DIARRHEA ACTIVITY GET PLENTY OF REST AT HOME. GRADUALLY INCREASE YOUR ACTIVITY LEVEL ACCORDING TO YOUR TOLERATION DIET CONSISTENT CARBS SUMMARY THE PATIENT IS ALERT AND ORIENTED X3. HE CURRENTLY RESIDES AT HOME WITH HIS SPOUSE. THEIR DAUGHTER IS SUPPORTIVE OF HIS NEEDS WHEN NECESSARY. MR. TELLO REQUIRES ASSISTANCE WITH AMBULATION BY MEANS OF USING A "WALKING STICK." MR. TELLO HAS REQUESTED A BEDSIDE COMMODE DUE TO HIS HAVING DIFFICULTY WALKING AND HISTORY OF FREQUENT FALLS. [employer] FROM [place], [place] WILL DELIVER THE EQUIPMENT. THE PATIENT'S SKIN TURGOR IS FAIR. HE HAS MULTIPLE BRUISES ON HIS ARMS IN VARIOUS STAGES OF HEALING. HE ALSO HAS A LARGE AREA OF SCARRING TO THE CALF AREA FROM A PRIOR BURN. HE HAS NO DECUBITUS ULCERS PRESENT. THE CHRONIC EDEMA TO THE LOWER EXTREMITIES HAS IMPROVED A GREAT DEAL SINCE ADMISSION WELL HAS THE HYDRATION AND NUTRITIONAL STATUS. AND MRS. TELLO ALONG WITH THEIR DAUGHTER ARE ALL AWARE OF TODAY'S DISCHARGE PLANS. INFORMATION HAS BEEN PROVIDED VERBALLY TO THE DAUGHTER REGARDING THE MEDICATIONS, ARTERIAL STUDIES SCHEDULED AND FOLLOW UP VISIT. SHE WILL [facility]. YOANDY ESCOBAR APRN SHOAIB MATOS M.D.
[2017-09-12 16:41] VITALS: BP 161/89
--- NOTE | 2017-09-14 11:13 | ECHO2D ---
Date of Exam: 09/12/17 Ordering Physician: DR. SHOAIB MATOS Room #: 114 Reason for Echo: CARDIOMEGALY, WEAKNESS M-Mode Normal Adult Results LV Dimensions Normal Adult Results AoV Opening excursions >1.6 >1.6 LVEDD-base- 3.5-5.8 5.6 Ao root dimensions 2.0-3.7 4.1 LVESD-base- 3.1-4.6 L. Atrium dimensions 1.9-3.8 5.2 Post. Wall thickness 0.8-1.1 1.5 IV septum (thickness) 0.7-1.2 1.4 Post. Wall excursion 0.72-1.3 NORMAL Septal motion NORMAL Systolic motion R. Ventricular cavity 1.5-2.0 NORMAL LVEF 60% 57% Paradoxical septal wall motion NORMAL 2-D : DILATED AORTIC ROOT, DILATED LEFT ATRIAL CAVITY, NORMAL LEFT VENTRICULAR CONTRACTILITY, NORMAL VALVES, NO EFFUSION, NO THROMBUS, BORDERLINE LEFT VENTRICLE CAVITY, ENLARGED LEFT ATRIAL CAVITY M-MODE: MV: NORMAL AV: NORMAL TV: NORMAL PV: CHAMBER SIZE: ENLARGED LEFT ATRIAL AND LEFT VENTRICLE CAVITIES WALL MOTION: NORMAL PERICARDIUM: NORMAL INTERPRETATION: 1. LEFT VENTRICULAR HYPERTROPHY WITH ENLARGED LEFT ATRIAL CAVITY 2. BORDERLINE ENLARGED LEFT VENTRICLE CAVITY 3. LEFT VENTRICULAR EJECTION FRACTION NORMAL 4. NORMAL VALVES MTDD
--- NOTE | 2017-09-14 13:47 | PN ---
DATE OF SERVICE: 09/11/17 SUBJECTIVE: The patient was seen and examined with the Nurse Practitioner today. The patient is doing better. The kidney functions are 2.1 with BUN same. The kidney functions are rising. He is off IV Lasix. He has chronic kidney disease, advised to drink some fluids. He is going to be put on IV fluids. Cardiovascular status stable. The patient is still pending echo. Again education about Diabetes Mellitus complications carried out. His prognosis is poor because he is noncompliant. CONDITION: Stable. TIME SPENT: More than 30 minutes. Plan and coordination of the patient's care discussed in the presence of nurse. RAYMOND
--- NOTE | 2017-09-14 13:57 | PN ---
DATE OF SERVICE: 09/12/17 SUBJECTIVE: 87 year old white male hospitalized with acute colitis, dehydration and edema with superficial ulcers on the toe and few of them on both feet. The patient's condition has improved and his edema is much less. No ulcer left it is all healed up with mild scab on second toe on left foot is practically healed up. The patient says that he is feeling better. REVIEW OF SYSTEMS: CONSTITUTIONAL: No night sweats. No fatigue, malaise, lethargy. No fever or chills. HEENT: Eyes: No visual changes. No eye pain. No eye discharge. ENT: No runny nose. No epistaxis. No sinus pain. No sore throat. No odynophagia. No congestion. Feeling some better. RESPIRATORY: No cough, no congestion. No hemoptysis. No shortness of breath. CARDIOVASCULAR: No angina symptoms. No CHF symptoms. No atypical chest pain for CAD. No palpitations. No orthopnea. GASTROINTESTINAL: No abdominal pain. No nausea or vomiting. No diarrhea or constipation. No hematemesis. No hematochezia. GENITOURINARY: No urgency. No frequency. No dysuria. No hematuria. No obstructive symptoms. No discharge. No pain. No significant abnormal bleeding. MUSCULOSKELETAL: No musculoskeletal pain; no joint swelling. NEUROLOGICAL: No headache. No neck pain. No syncope. No seizures. No dizziness. PSYCHIATRIC: Not anxious. No depression. No suicidal thoughts. No homicidal thoughts. SKIN: No rash. No lesions. No wounds. ENDOCRINE: No unexplained weight loss. No weight gain. HEMATOLOGIC/LYMPHATIC: No anemia. No purpura. No petechiae. No prolonged or excessive bleeding. No palpable lymph nodes. PHYSICAL EXAMINATION: GENERAL: The patient is oriented to time, place and person. VITAL SIGNS: Temperature 98.1, pulse 88, respiratory rate 20, blood pressure 160/80 and pulse ox 93%. HEENT: Head normocephalic, atraumatic. Eyes: Extraocular muscles are intact. Pupils are equal, round and reactive to light and accommodation. Ears: No lesions. Nose appeared normal. Throat: No exudate or erythema. NECK: Supple. No JVD, no carotid bruit. No lymphadenopathy or thyromegaly. LUNGS: Decreased breath sounds but clear to auscultation. Percussion note normal. Chest symmetrical. HEART: S1, S2, no S3. No murmurs. No cyanosis or clubbing. No ascites. Pulses: Dorsalis pedis and posterior tibial pulses +1 to +2 both sides. ABDOMEN: Soft. Nontender. Bowel sounds active. No CVA tenderness. No mass felt. EXTREMITIES: No edema. Full range of motion of all extremities, equal. NEUROLOGIC: No focal deficit. Cranial nerves II through XII are grossly intact. No headache, no double vision or headache. SKIN: Not dry. Intact. Turgor - normal. LYMPHATIC: No palpable lymph nodes/no lymphedema. MUSCULOSKELETAL: Normal joints with no swelling. Muscle tone is normal. LABS: Creatinine is improved from 2.1 to 1.7 with BUN of 47. The patient had hyperkalemia 6.6 and the repeat one showed 5.8. The patient had an echocardiogram done today which showed borderline LV cavity enlargement and enlarged LA cavity and LVH with normal LV contractility. All reports are discussed with the patient. ASSESSMENT: 1. Hyperkalemia, will treat with Kayexalate 2. Renal Azotemia seems to be subsided it was from aggressive diuretic therapy. The patient underwent 24 hour urine for protein and also ultrasound of kidneys, reports pending. PLAN: 1. Give Kayexalate 2. The patient is noncompliant, advised to have A1c between 6-7 and he says that "I'm not going to watch diet" Levemir dose should be increased but he says that "I'll take whatever dose I feel like it." The patient is confused. 3. Losartan dose has been increased, blood pressure systolic is still mildly elevated. 4. If his potassium is OK which is going to be repeated this afternoon then the patient will be discharged home. 5. He is going to have arterial study done as an outpatient. CONDITION: Stable with multiple medical problems. TIME SPENT: More than 30 minutes. Plan and coordination of the patient's care discussed in the presence of nurse. RAYMOND
--- NOTE | 2017-09-14 13:58 | PN ---
09/06/17: Level 5 09/07/17: Intermediate 09/08/17: Intermediate 09/09/17: Intermediate 09/10/17: Intermediate 09/11/17: Intermediate 09/12/17: D as in discharge MTDD
--- NOTE | 2017-09-14 14:29 | DS ---
DATE OF SERVICE: 09/12/17 FINAL DIAGNOSIS: ACUTE COLITIS DEHYDRATION, IMPROVED HYPOKALEMIA/HYPERKALEMIA LEG EDEMA, IMPROVED LEG PAIN, GREATER ON THE RIGHT WEIGHT LOSS CAD HYPERTENSION DYSLIPIDEMIA CHF COPD SLEEP APNEA (DECLINES C-PAP) PVD DM, TYPE 2- UNCONTROLLED GERD CHRONIC KIDNEY DISEASE (DR. 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, 2015 DEMENTIA ANXIETY CATARACT EXTRACTIONS, 2003 LAST VITALS: Temp Pulse Resp BP Pulse Ox 97.8 F 79 20 152/76 H 93 L TAKE THESE MEDICATIONS AT HOME: Alprazolam (Xanax) 0.5 mg PO BEDTIME PRN Aspirin (Aspirin Chewable) 81 mg PO DAILYWM [facility] Diphenoxylate HCl/Atropine (Lomotil) 1 tab PO BID PRN #15 ONLY Donepezil HCl (Aricept) 10 mg PO DAILY [facility] Fursemide (Lasix) 20 mg PO DAILY x5 DAYS/WEEK, MON - MON, SKIP MON AND SUNDAYS Gabapentin (Neurontin) 300 mg PO BEDTIME [facility] Insulin Detemir (Levemir) 30 unit SUBCUT BIDPC [facility] Lomotil 2.5-0.025 mg one tablet PO BID PRN DIARRHEA Losartan Potassium (Cozaar) 100 mg PO DAILY [facility] Memantine (Namenda) 10 mg PO Q12HR [facility] Pantoprazole Sodium (Protonix) 40 mg PO QDAC [facility] ALLERGIES: clarithromycin [From Biaxin] Adverse Reaction (Verified 09/06/17 21:44) levofloxacin [From Levaquin] Adverse Reaction (Verified 09/06/17 21:44) HOME MEDICATION CHANGES MADE DURING THIS HOSPITALIZATION: LOSARTAN POTASSIUM (COZAAR) 25 MG PO DAILY INCREASED TO 100 MG PO DAILY SEE NEW PRESCRIPTIONS NEW PRESCRIPTIONS: DONEPEZIL HCL (ARICEPT) 10 MG, TAKE ONE TABLET BY MOUTH DAILY GABAPENTIN (NEURONTIN) 300 MG, TAKE ONE TABLET BY MOUTH AT BEDTIME LOSARTAN POTASSIUM (COZAAR) 100 MG, TAKE ONE TABLET BY MOUTH DAILY LASIX 20 MG, TAKE ONE TABLET BY MOUTH DAILY ON MONDAY THROUGH MONDAY (5 DAYS PER WEEK) LOMOTIL 1 TABLET BY MOUTH TWICE DAILY IF NEEDED (PRN) FOR DIARRHEA SMOKING: NEVER SMOKER DISEASE SPECIFIC EDUCATION: COLITIS DEHYDRATION HYPOKALEMIA/HYPERKALEMIA LEG PAIN LEG EDEMA HOME MEDICATIONS NEW PRESCRIPTIONS REFERRALS FOLLOW UP MEDICAL EQUIPMENT (BEDSIDE COMMODE) PLAN: DISCHARGE HOME TODAY RETURN TO SEE DR. MATOS IN HIS OFFICE ON 09/18/17 AT 10:30 A.M. KEEP YOUR APPOINTMENT TO HAVE LOWER EXTREMITY ARTERIAL STUDIES AT [facility] 09/14/17 AT 12:30 A.M. : BRING A PHOTO IDENTIFICATION BRING YOUR MEDICARE CARD [employer] WILL DELIVER A BEDSIDE COMMODE TO YOUR HOME IN THE NEXT FEW DAYS. PHONE NUMBER [phone] RESUME YOUR HOME MEDICATIONS PER LIST PROVIDED BY THE NURSING STAFF PLEASE NOTE THE INCREASE IN YOUR LOSARTAN POTASSIUM (COZAAR) TO 100 MG PO DAILY DO NOT TAKE YOUR BUMETANIDE (BUMEX) ACTIVITY: GET PLENTY OF REST AT HOME. GRADUALLY INCREASE YOUR ACTIVITY LEVEL ACCORDING TO YOUR TOLERATION DIET: CONSISTENT [facility]: This is an 87 year old white male was presented to our office complaining that he had had vomiting and diarrhea for the past two days. He was weak, arrived in a wheelchair and was unable to walk. He was very pale. He was admitted. kidney function was elevated showing mild dehydration however he also had worsening leg edema with red ulcers on the tops of both of his feet. He was given IV Lasix 20mg for the first two days after his admission and his leg edema has resolved. Initially he was experiencing hypokalemia likely due to the amount of diarrhea. He was placed on 40meq twice a day of oral Potassium. Over the course of the first 48 hours his leg edema resolved however he did suffer acute kidney injury with an increase in BUN and creatinine. Yesterday BUN was 45 and Creatinine 2.1. We restarted the IV fluids at 42cc an hour slow normal saline. Today they have significantly improved. Creatinine is back down to 1.7. We did do an x-ray of the L spine due to the right sciatic symptoms. 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 Since he is still here his amount of stools have significantly decreased and he still always has some lose stools due to being on Metformin at home but these are only limited to 2-3 times daily which is about his normal. He has gone back to his normal. He has been eating well at 75-100% of his meals. He is experiencing some leg weakness slightly due to back pain and generalized deterioration. He is requesting a bedside commode to have at home which we will provide an order for. He was started on Rocephin 1 gram daily due to some questionable atelectasis on chest x -ray. He was also put on Flagyl 500mg PO three times a day due to the diarrhea. CAT scan of the abdomen showed no acute diverticulitis along with no acute processes or changes associated with colitis. We put him on Protonix 40meq daily which he will go home on. Again due to gradually worsening dementia he was started on Aricept 10mg daily which he will continue with at home. He was previously on Bumex daily which we will change to Lasix 20mg daily to take home. He did have some elevated blood pressures likely due to IV fluids, kidney disease however his Cozaar was increased to 100mg daily and this has been well controlled. Today on the day of discharge 140/70. Again his labs have significantly improved and his symptoms have improved, diarrhea has improved, kidney functions better. We will send him home. He is going to have arterial studies done on the at [facility] of the lower extremities however the ulcers on his feet did resolve as the leg swelling resolved. He has not had any vomiting and again he is eating well. He will be discharged in stable condition today. TIME SPENT: More than 60 minutes. RAYMOND
== END 2017-09-12 17:00 | disposition home or self-care (01) | DRG 392 ==
LOC: MEDSURG B 19:59
PROVIDERS: ADMIT Internal Medicine; ATTEND Internal Medicine
DX: K52.9 Noninfective gastroenteritis and colitis, unspecified (principal); N17.9 Acute kidney failure, unspecified; E86.0 Dehydration; E87.6 Hypokalemia; E87.5 Hyperkalemia; R60.0 Localized edema; M79.604 Pain in right leg; M54.31 Sciatica, right side; R63.4 Abnormal weight loss; I25.10 Atherosclerotic heart disease of native coronary artery without angina pectoris; E78.5 Hyperlipidemia, unspecified; I50.9 Heart failure, unspecified; J44.9 Chronic obstructive pulmonary disease, unspecified; G47.30 Sleep apnea, unspecified; I73.9 Peripheral vascular disease, unspecified; E11.65 Type 2 diabetes mellitus with hyperglycemia; K21.9 Gastro-esophageal reflux disease without esophagitis; N18.9 Chronic kidney disease, unspecified; D64.9 Anemia, unspecified; D69.6 Thrombocytopenia, unspecified; F03.90 Unspecified dementia, unspecified severity, without behavioral disturbance, psychotic disturbance, mood disturbance, and anxiety; F41.9 Anxiety disorder, unspecified; M51.36 Other intervertebral disc degeneration, lumbar region; L89.91 Pressure ulcer of unspecified site, stage 1; Z91.19 Patient's noncompliance with other medical treatment and regimen; Z91.81 History of falling; Z79.4 Long term (current) use of insulin; Z79.899 Other long term (current) drug therapy
CPT/HCPCS: 36415; 76770; 80053; 81001; 82550; 82803; 82962; 84132; 84436; 84443; 84484; 85025; 87015; 87045; 87493; 87899; 93005; 93010; 97802

== ENCOUNTER 2017-09-14 14:52 | Inpatient (IN) ==
[2017-09-14 15:02] VITALS: BMI 34.0
[2017-09-14] MEDS ORDERED: LOVENOX SUBCUT STA (15:27)
--- NOTE | 2017-09-14 15:31 | ED.PDOC ---
General ED Provider: Dr. TRACY INMAN Chief Complaint: Extremity Swelling/Pain Stated Complaint: Swelling of Rt Lower extremity for several weeks. Sent to [facility] for US of RT LE today which returned pos for DVT Rt CFV and Popiteal. Sent her by PCP Dr Matos for work up and additional eval. Recently discharged after hospitalization for Chronic Diarrhea. Continues to have diarrhea Time Seen by Physician: 15:05 Mode of Arrival: Walk-In Information Source: Patient, Family Primary Care Provider: SHOAIB MATOS Referred to ED by: PCP Nursing and Triage Documentation Reviewed and Agree: Yes Reviewed sepsis parameters & appropriate labs ordered?: Yes System Inflammatory Response Syndrome: Not Applicable Sepsis Protocol: For patient's 13 years and over: Temp is 96.8 and below OR 101 and greater Pulse >90 BPM Resp >20/minute Acutely Altered Mental Status Are patient's symptoms suggestive of a new infection, such as: -Pneumonia -Skin, Soft Tissue -Endocarditis -UTI -Bone, Joint Infection -Implantable Device -Acute Abdominal Infection -Wound Infection -Meningitis -Blood Stream Catheter Infection -Unknown Review of Systems - Review Of Systems Constitutional: Reports: Weakness Eyes: Reports: No symptoms Ears, Nose, Mouth, Throat: Reports: No symptoms Respiratory: Reports: No symptoms Cardiac: Reports: No symptoms, Other (edema RLE/pos homans RLE) GI: Reports: No symptoms : Reports: No symptoms Musculoskeletal: Reports: No symptoms, Other (swelling RLE) Skin: Reports: No symptoms Neurological: Reports: No symptoms Endocrine: Reports: No symptoms Hematologic/Lymphatic: Reports: No symptoms All Other Systems: Reviewed and Negative Past Medical History - Past Medical History Previously Healthy: No Endocrine: Reports: DM 1 ((insulin)), Dyslipidemia Cardiovascular: Reports: Hypertension, DVT (RIGHT (OLD RECORD)) Respiratory: Reports: COPD Hematological: Reports: None, Anemia ((OLD RECORD)) Gastrointestinal: Reports: None Genitourinary: Reports: CKD Neuro/Psych: Reports: None, Other (SLLEP APNEA(OLD RECORD)) Musculoskeletal: Reports: None, Arthritis ((OLD RECORD)) Cancer: Reports: None Other Pertinent Past Medical History: FALL IN TUB 04/26/2014 SEEN AT [facility] - Surgical History General Surgical History: Reports: Unknown - Family History Family History: Reports: Unknown - Social History Smoking Status: Never smoker Hx Substance Use: No Alcohol Screening: None Lives: With family Physical Exam - Physical Exam Appearance: Ill-appearing, Obese Ill-appearing: Moderate Pain Distress: Mild Eyes: NEMESIO, EOMI, Conjunctiva clear ENT: Ears normal, Nose normal, Oropharynx normal Neck: Supple (Neg JVD) Respiratory: Airway patent, Breath sounds clear, Breath sounds equal Cardiovascular: RRR, Pulses normal, No rub, No murmur GI/: Soft, Nontender, No masses, Bowel sounds normal, No Organomegaly Musculoskeletal: Normal strength, ROM intact (Pos 2 plus edema RLE/pain in Rt groin and Rt distal thight/knee region ) Skin: Warm, Normal color Neurological: Sensation intact, Motor intact, Reflexes intact, Alert, Oriented Psychiatric: Affect appropriate, Mood appropriate Re-Evaluation - Re-Evaluation Time of Re-Evaluation: 17:00 (have initiated Lovenox) Status: Unchanged Vital Signs Stable: Yes Appearance: NAD Lungs: Clear Skin: Warm and Dry Additional Comments: Discussed with Dr Matos who requests admission of patient Critical Care Note - Critical Care Note Total Time (mins): 60 (Monitored patients condition and discussed wit PCP/ admitted 23 obs) Course - Course Hematology/Chemistry: 09/14/17 15:38 09/14/17 15:38 Orders, Labs, Meds: Lab Review 09/14/17 09/14/17 09/14/17 15:38 15:38 15:38 WBC 8.21 D RBC 4.06 L Hgb 12.1 L Hct 37.2 L MCV 91.6 MCH 29.8 MCHC 32.5 RDW Coeff of Danielle 14.3 Plt Count 119 L Immature Gran % (Auto) 0.4 Neut % (Auto) 61.5 Lymph % (Auto) 22.0 [place] % (Auto) 7.2 Eos % (Auto) 8.0 H Baso % (Auto) 0.9 Immature Gran # (Auto) 0.0 Neut # (Auto) 5.1 Lymph # (Auto) 1.8 [place] # (Auto) 0.6 Eos # (Auto) 0.7 Baso # (Auto) 0.1 PT 10.7 INR 1.07 APTT 25.0 Sodium 138 Potassium 4.3 Chloride 105 Carbon Dioxide 29 Anion Gap 8.3 BUN 54 H Creatinine 2.10 H Estimated GFR (MDRD) 30.00 BUN/Creatinine Ratio 25.71 Glucose 351 H Calcium 9.1 Total Bilirubin 0.4 AST 13 L ALT 15 Alkaline Phosphatase 73 Total Protein 6.3 Albumin 3.7 Globulin 2.6 Albumin/Globulin Ratio 1.42 Orders Category Date Time Status CBC W/ AUTO DIFF Stat LAB 09/14/17 15:38 Completed CMP [COMPREHENSIVE METABOLIC PANEL] Stat LAB 09/14/17 15:38 Completed PT WITH INR Stat LAB 09/14/17 15:38 Completed PTT [PARTIAL THROMBOPLASTIN TIME] Stat LAB 09/14/17 15:38 Completed Enoxaparin Sodium [Lovenox] MEDS 09/14/17 15:27 Discontinued 100 mg SUBCUT ONCE STA Medications Generic Name Dose Route Start Last Admin Trade Name Freq PRN Reason Stop Dose Admin Acetaminophen 650 mg 09/14/17 17:41 Tylenol PO Q4H PRN Pain Alprazolam 0.5 mg 09/14/17 17:49 Xanax PO BEDTIME PRN Anxiety Aspirin 81 mg 09/15/17 09:00 Aspirin Chewable PO DAILY CHUY Diphenoxylate HCl/Atropine tab 09/14/17 17:49 Lomotil PO BID PRN Diarrhea Donepezil HCl 10 mg 09/15/17 09:00 Aricept PO DAILY CHUY Enoxaparin Sodium 100 mg 09/15/17 09:00 Lovenox SUBCUT Q12HR CHUY Furosemide 20 mg 09/14/17 18:00 Lasix Tab PO MOTUWETHFR [facility] Gabapentin 300 mg 09/14/17 21:00 Neurontin PO BEDTIME CHUY Losartan Potassium 100 mg 09/15/17 09:00 Cozaar PO DAILY CHUY Non-Formulary Medication 0.5 mg 09/14/17 18:00 Bumetanide [Bumetanide] PO 3 TIMES PER WEEK CHUY Non-Formulary Medication 40 mg 09/15/17 09:00 Esomeprazole Magnesium [Nexium] PO DAILY CHUY Non-Formulary Medication 30 unit 09/15/17 06:30 Insulin Detemir [Levemir Flexpen] SQ BIDAC CHUY Non-Formulary Medication 1 each 09/15/17 09:00 Memantine Hcl/Donepezil Hcl [Namzaric 28 Mg-10 Mg Capsule] PO DAILY CHUY Non-Formulary Medication 10 mg 09/14/17 21:00 Rosuvastatin Calcium [Crestor] PO BEDTIME CHUY Discontinued Medications Generic Name Dose Route Start Last Admin Trade Name Freq PRN Reason Stop Dose Admin Enoxaparin Sodium 100 mg 09/14/17 15:27 09/14/17 15:41 Lovenox SUBCUT 09/14/17 15:28 100 mg ONCE STA Administration Vital Signs: Temp Pulse Resp BP Pulse Ox 09/14/17 14:54 96.5 F L 69 20 167/60 H 95 MARTHA Risk Score MARTHA Risk Score: Risk Score Odds of by 30D 0 0.1 (0.1-0.2) 1 0.3 (0.2-0.3) 2 0.4 (0.3-0.5) 3 0.7 (0.6-0.9) 4 1.2 (1.0-1.5) 5 2.2 (1.9-2.6) 6 3.0 (2.5-3.6) 7 4.8 (3.8-6.1) Departure - Departure Time of Disposition: 17:30 Disposition: PLACED OBSERVATION Discharge Problem: Dvt femoral (deep venous thrombosis), Deep vein thrombosis (DVT) of popliteal vein of right lower extremity Condition: Fair Pt referred to PMD for follow-up: Yes (Dr Matos) IPMP verified?: No Allergies/Adverse Reactions: Allergies clarithromycin [From Biaxin] Adverse Reaction (Verified 09/14/17 15:01) levofloxacin [From Levaquin] Adverse Reaction (Verified 09/14/17 15:01) Home Medications: Ambulatory Orders Alprazolam [Xanax] 0.5 mg PO BEDTIME PRN 01/25/13 Insulin Detemir [Levemir Flexpen] 30 unit SQ BIDAC 10/09/13 Rosuvastatin Calcium [Crestor] 10 mg PO BEDTIME 04/29/15 Aspirin [Aspirin Chewable] 81 mg PO DAILY 07/20/15 Esomeprazole Magnesium [Nexium] 40 mg PO DAILY 09/06/17 Memantine HCl/Donepezil HCl [Namzaric 28 mg-10 mg Capsule] 1 each PO DAILY 09/06 Diphenoxylate HCl/Atropine [Lomotil 2.5-0.025 mg Tablet] 1 each PO BID PRN #15 tablet 09/12/17 Donepezil HCl [Aricept] 10 mg PO DAILY #30 tablet 09/12/17 Furosemide [Lasix Tab] 20 mg PO MOTUWETHFR #20 tablet 09/12/17 Gabapentin 300 mg PO BEDTIME #30 capsule 09/12/17 Losartan Potassium [Cozaar] 100 mg PO DAILY #30 tablet 09/12/17 Bumetanide 0.5 mg PO 3 TIMES PER WEEK 09/14/17 Disposition Discussed With: Patient, Family Miscellaneous Complaint Exam - Febrile Illness/Adult Complaint/Exam Onset/Duration: several weeks ago Symptoms Are: Still present Timing: Constant Initial Severity: Moderate Current Severity: Moderate Aggravating: Reports: Unknown Alleviating: Reports: None Associated Signs and Symptoms: Denies: Headache, Fluid intake, Short of air, Cough, Sore throat, Nausea, Vomiting, Chills, Diaphoresis, Dysuria, Arthralgia, Stiff neck, Myalgia, Rash, Altered mental status Related History: Reports: Similar episode Pseudomonas Risk Factors: Reports: None Serious Bacterial Infection Risk Factors: Reports: None Current Antibiotic Use: No Specific Findings: Absent: Meningeal signs, Diaphoresis, Lymphadenopathy, Petechiae Differential Diagnoses: Other (DVT)
[2017-09-14] MEDS ORDERED: LOMOTIL PO PRN (17:49)
[2017-09-14] MEDS ORDERED: NON-FORMULARY MEDICATION (Bumetanide [Bumetanide] 0.5 MG) PO SCH (18:00)
[2017-09-14] MEDS ORDERED: LASIX TAB PO SCH (18:00)
[2017-09-14] MEDS ORDERED: CRESTOR ONE (19:50)
[2017-09-14] MEDS ORDERED: TORADOL IVP STA (19:58)
[2017-09-14] MEDS ORDERED: NON-FORMULARY MEDICATION (Rosuvastatin Calcium [Crestor] 10 MG) PO SCH (21:00)
[2017-09-14] MEDS: LEVEMIR SUBCUT SCH (21:30)
[2017-09-14] MEDS: NEURONTIN PO SCH (21:31)
[2017-09-14] MEDS ORDERED: VASOTEC IV IVP PRN (22:44)
[2017-09-14] MEDS: XANAX PO PRN (23:19)
[2017-09-14] MEDS: TYLENOL PO PRN (23:19)
[2017-09-15] MEDS: LEVEMIR SUBCUT SCH ×2 (05:46→18:14)
[2017-09-15] MEDS ORDERED: INSULIN DETEMIR 30 UNIT SQ SCH (06:30)
[2017-09-15] MEDS ORDERED: NON-FORMULARY MEDICATION (Esomeprazole Magnesium [Nexium] 40 MG) PO SCH (09:00)
[2017-09-15] MEDS ORDERED: NON-FORMULARY MEDICATION (Memantine Hcl/Donepezil Hcl [Namzaric 28 Mg-10 Mg Capsule] 1 EAC PO SCH (09:00)
[2017-09-15] MEDS ORDERED: LOVENOX SUBCUT SCH (09:00)
--- NOTE | 2017-09-15 09:11 | PCM.PROG ---
Attending Provider: ATTENDING PROVIDER: Dr. SHOAIB MATOS This patient is seen with Digna Quintero, Nurse Practitioner. DATE OF SERVICE: 09/15/17 SUBJECTIVE: This 87 year old WHITE/ M was hospitalized 09/14/17. The patient is lying in bed, alert. Arterial study from [facility] revealed possible blood clot in common femoral and popliteal vein right leg. Report is not available at this time. REVIEW OF SYSTEMS: CONSTITUTIONAL: No night sweats. No fatigue, malaise, lethargy. No fever or chills. HEENT: Eyes: No visual changes. No eye pain. No eye discharge. ENT: No runny nose. No epistaxis. No sinus pain. No odynophagia. No congestion. RESPIRATORY: No cough, no congestion. No hemoptysis. No shortness of breath. CARDIOVASCULAR: No angina symptoms. No CHF symptoms. No atypical chest pain for CAD. No palpitations. No orthopnea. Trace edema. GASTROINTESTINAL: No abdominal pain. No nausea or vomiting. No diarrhea or constipation. No hematemesis. No hematochezia. GENITOURINARY: No urgency. No frequency. No dysuria. No hematuria. No obstructive symptoms. No discharge. No pain. No significant abnormal bleeding. MUSCULOSKELETAL: Intermittent right leg pain. NEUROLOGICAL: Awake, alert, oriented to time, place and person. No headache. No neck pain. No syncope. No seizures. No dizziness. PSYCHIATRIC: Not anxious. No depression. No suicidal thoughts. No homicidal thoughts. SKIN: No rash. No lesions. No wounds. ENDOCRINE: No unexplained weight loss. No weight gain. HEMATOLOGIC/LYMPHATIC: No anemia. No purpura. No petechiae. No prolonged or excessive bleeding. No palpable lymph nodes. PHYSICAL EXAMINATION: GENERAL: The patient is awake, alert and oriented, lying in bed in no distress. VITAL SIGNS: Temperature 97.7 F, Pulse 64, Respiratory Rate 18, BP 145/71, Pulse Ox 95% HEENT: Head normocephalic, atraumatic. Eyes: Extraocular muscles are intact. Pupils are equal, round and reactive to light and accommodation. Ears: No lesions. Nose appeared normal. Throat: No exudate or erythema. NECK: Supple. No JVD, no carotid bruit. No lymphadenopathy or thyromegaly. LUNGS: Diminished breath sounds. Clear to auscultation. Percussion note normal. Chest symmetrical. HEART: S1, S2, no S3. No murmurs. No cyanosis or clubbing. No ascites. Pulses: Dorsalis pedis and posterior tibial pulses +1 to +2 both sides. ABDOMEN: Soft. Non-tender. Bowel sounds active. No CVA tenderness. No mass felt. EXTREMITIES: Trace edema bilateral lower extremities. Right lower extremity no redness, negative Jose Juan's sign. No abnormal swelling. Full range of motion of all extremities, equal. NEUROLOGIC: No focal deficit. Cranial nerves II through XII are grossly intact. No headache, no double vision or headache. SKIN: Not dry. Intact. Turgor-normal. LYMPHATIC: No palpable lymph nodes/no lymphedema. MUSCULOSKELETAL: Normal joints with no swelling. Muscle tone is normal. LAB REVIEW: 09/15/17 04:30 09/15/17 04:30 09/15/17 04:30: Sodium 141, Potassium 4.2, Chloride 105, Carbon Dioxide 26, Anion Gap 14.2, BUN 49 H, Creatinine 1.90 H, Estimated GFR (MDRD) 34.00, BUN/ Creatinine Ratio 25.78, Glucose 195 H D, Calcium 8.8, Total Bilirubin 0.5, AST 14 L, ALT 15, Alkaline Phosphatase 68, Total Protein 5.9, Albumin 3.3 L, Globulin 2.6, Albumin/Globulin Ratio 1.27 09/15/17 04:30: WBC 6.99, RBC 3.98 L, Hgb 11.8 L, Hct 36.3 L, MCV 91.2, MCH 29.6 , MCHC 32.5, RDW Coeff of Danielle 14.1, Plt Count 129 L, Immature Gran % (Auto) 0.1 , Neut % (Auto) 54.0, Lymph % (Auto) 29.2, [place] % (Auto) 7.0, Eos % (Auto) 8.6 H , Baso % (Auto) 1.1, Immature Gran # (Auto) 0.0, Neut # (Auto) 3.8, Lymph # ( Auto) 2.0, [place] # (Auto) 0.5, Eos # (Auto) 0.6, Baso # (Auto) 0.1 09/14/17 15:38: Sodium 138, Potassium 4.3, Chloride 105, Carbon Dioxide 29, Anion Gap 8.3, BUN 54 H, Creatinine 2.10 H, Estimated GFR (MDRD) 30.00, BUN/ Creatinine Ratio 25.71, Glucose 351 H, Calcium 9.1, Total Bilirubin 0.4, AST 13 L, ALT 15, Alkaline Phosphatase 73, Total Protein 6.3, Albumin 3.7, Globulin 2.6 , Albumin/Globulin Ratio 1.42 09/14/17 15:38: PT 10.7, INR 1.07, APTT 25.0 09/14/17 15:38: WBC 8.21 D, RBC 4.06 L, Hgb 12.1 L, Hct 37.2 L, MCV 91.6, MCH 29.8, MCHC 32.5, RDW Coeff of Danielle 14.3, Plt Count 119 L, Immature Gran % (Auto) 0.4, Neut % (Auto) 61.5, Lymph % (Auto) 22.0, [place] % (Auto) 7.2, Eos % (Auto) 8.0 H, Baso % (Auto) 0.9, Immature Gran # (Auto) 0.0, Neut # (Auto) 5.1, Lymph # (Auto) 1.8, [place] # (Auto) 0.6, Eos # (Auto) 0.7, Baso # (Auto) 0.1 ASSESSMENT: Please see below. 1. DVT RIGHT LOWER EXTREMITY (COMMON FEMORAL, POPLITEAL) 2. HYPERTENSION 3. CKD PLAN: 1. Toradol 30 mg IV q.8hr p.r.n. 2. IV fluids NS 1L today at 75 cc/hr 3. Norvasc 5 mg at night Plan and coordination of the patient's care discussed in the presence of Mechanical Process Engineer and nurse. CONDITION: Stable SCRIBED BY: ERNESTINE MANRIQUE International Specialist scribed while in presence of service performed by Dr. Matos/Digna Quintero APRN on 09/15/17 ([id number])
[2017-09-15] MEDS: SODIUM CHLORIDE 1,000 ML IV SCH ×6 (09:34→20:50)
[2017-09-15] MEDS: COZAAR PO SCH (09:35)
[2017-09-15] MEDS: LASIX TAB PO SCH (09:35)
[2017-09-15] MEDS: ASPIRIN CHEWABLE PO SCH (09:35)
[2017-09-15] MEDS: PROTONIX PO SCH (09:35)
[2017-09-15] MEDS: ARICEPT PO SCH (09:35)
[2017-09-15] MEDS: NAMENDA PO SCH ×2 (09:35→20:32)
[2017-09-15] MEDS: LOVENOX SUBCUT SCH (09:42)
--- NOTE | 2017-09-15 15:21 | US ---
EXAM: Ultrasound venous Doppler right and left lower extermity HISTORY: Pain, swelling COMPARISON: 10/30/17 TECHNIQUE: Venous duplex ultrasound of the right and left lower extremity was performed using color, adair-scale, and Doppler flow imaging. FINDINGS: Right: There is partial deep venous thrombus in the profunda femoral, femoral, popliteal, and perone al veins. No thrombus identified in the common femoral, greater saphenous veins. Posterior tibial a nd anterior tibial veins not visualized. Left: There is normal color flow and compression of the left common femoral, greater saphenous, prof unda femoral, femoral, popliteal, peroneal, posterior tibial, and anterior tibial veins without evide nce of intraluminal thrombus. No reflux is identified. IMPRESSION: 1. Right lower extremity deep venous thrombus. 2. No left lower extremity deep venous thrombosis. Critical finding called to patient nurse 3:13 p.m. 09/25/2017
[2017-09-15] MEDS: CRESTOR PO SCH (20:32)
[2017-09-15] MEDS: NEURONTIN PO SCH (20:32)
[2017-09-15] MEDS: NORVASC PO SCH (20:32)
[2017-09-15] MEDS: XANAX PO PRN (20:40)
[2017-09-16] MEDS: TORADOL IVP PRN (01:49)
[2017-09-16] MEDS: PROTONIX PO SCH (05:32)
[2017-09-16] MEDS: LEVEMIR SUBCUT SCH ×2 (05:34→17:10)
[2017-09-16] MEDS: COZAAR PO SCH (08:02)
[2017-09-16] MEDS: ASPIRIN CHEWABLE PO SCH (08:02)
[2017-09-16] MEDS: NAMENDA PO SCH ×2 (08:02→20:22)
[2017-09-16] MEDS: ARICEPT PO SCH (08:02)
[2017-09-16] MEDS: LOVENOX SUBCUT SCH (08:03)
[2017-09-16] MEDS: XANAX PO PRN (20:22)
[2017-09-16] MEDS: NEURONTIN PO SCH (20:22)
[2017-09-16] MEDS: CRESTOR PO SCH (20:22)
[2017-09-16] MEDS: NORVASC PO SCH (20:23)
[2017-09-17] MEDS: TORADOL IVP PRN ×3 (02:58→23:51)
[2017-09-17] MEDS: LEVEMIR SUBCUT SCH ×2 (05:45→17:09)
[2017-09-17] MEDS: PROTONIX PO SCH (05:46)
[2017-09-17] MEDS: COZAAR PO SCH (08:02)
[2017-09-17] MEDS: NAMENDA PO SCH ×2 (08:02→20:35)
[2017-09-17] MEDS: ARICEPT PO SCH (08:02)
[2017-09-17] MEDS: ASPIRIN CHEWABLE PO SCH (08:02)
[2017-09-17] MEDS: LOVENOX SUBCUT SCH (08:02)
[2017-09-17] MEDS ORDERED: TORADOL IVP PRN ×2 (08:06→08:13)
[2017-09-17] MEDS: TYLENOL PO PRN (13:14)
[2017-09-17] MEDS ORDERED: MORPHINE 2 MG/ML SYRINGE IVP STA (13:45)
[2017-09-17] MEDS ORDERED: MORPHINE 4 MG/ML VIAL ONE (13:55)
[2017-09-17] MEDS: NEURONTIN PO SCH ×2 (14:00→20:35)
[2017-09-17] MEDS: CRESTOR PO SCH (20:34)
[2017-09-17] MEDS: NORVASC PO SCH (20:35)
[2017-09-17] MEDS: XANAX PO PRN (20:36)
[2017-09-18] MEDS ORDERED: MORPHINE 4 MG/ML VIAL ONE (03:48)
[2017-09-18] MEDS ORDERED: MORPHINE 4 MG/ML VIAL IVP STA (03:52)
[2017-09-18] MEDS: LEVEMIR SUBCUT SCH (05:37)
[2017-09-18] MEDS: PROTONIX PO SCH (05:37)
[2017-09-18] MEDS: NAMENDA PO SCH (08:23)
[2017-09-18] MEDS: COZAAR PO SCH (08:23)
[2017-09-18] MEDS: ARICEPT PO SCH (08:23)
[2017-09-18] MEDS: NEURONTIN PO SCH (08:23)
[2017-09-18] MEDS: LASIX TAB PO SCH (08:23)
[2017-09-18] MEDS: ASPIRIN CHEWABLE PO SCH (08:23)
[2017-09-18] MEDS: LOVENOX SUBCUT SCH (08:24)
--- NOTE | 2017-09-18 08:58 | PCM.PROG ---
Attending Provider: ATTENDING PROVIDER: Dr. SHOAIB MATOS This patient is seen with Digna Quintero, Nurse Practitioner. DATE OF SERVICE: 09/18/17 SUBJECTIVE: This 87 year old WHITE/ M was hospitalized 09/14/17. The patient is sitting in bed, alert. He states he is ready to go home. He has been having mild pain right lower extremity. Other than that complaint, no pain no signs or symptom, no DVT. Discussed discharge home on blood thinner. Risks versus benefits discussed in detail. REVIEW OF SYSTEMS: CONSTITUTIONAL: No night sweats. No fatigue, malaise, lethargy. No fever or chills. HEENT: Eyes: No visual changes. No eye pain. No eye discharge. ENT: No runny nose. No epistaxis. No sinus pain. No odynophagia. No congestion. RESPIRATORY: No cough, no congestion. No hemoptysis. No shortness of breath. CARDIOVASCULAR: No angina symptoms. No CHF symptoms. No atypical chest pain for CAD. No palpitations. No orthopnea.. GASTROINTESTINAL: No abdominal pain. No nausea or vomiting. No diarrhea or constipation. No hematemesis. No hematochezia. GENITOURINARY: No urgency. No frequency. No dysuria. No hematuria. No obstructive symptoms. No discharge. No pain. No significant abnormal bleeding. MUSCULOSKELETAL: Right leg pain. NEUROLOGICAL: Awake, alert, oriented to time, place and person. No headache. No neck pain. No syncope. No seizures. No dizziness. PSYCHIATRIC: Not anxious. No depression. No suicidal thoughts. No homicidal thoughts. SKIN: No rash. No lesions. No wounds. ENDOCRINE: No unexplained weight loss. No weight gain. HEMATOLOGIC/LYMPHATIC: No anemia. No purpura. No petechiae. No prolonged or excessive bleeding. No palpable lymph nodes. PHYSICAL EXAMINATION: GENERAL: The patient is awake, alert and oriented, sitting in bed in no distress. VITAL SIGNS: Temperature 97.0 F, Pulse 67, Respiratory Rate 20, BP 147/66, Pulse Ox 95% HEENT: Head normocephalic, atraumatic. Eyes: Extraocular muscles are intact. Pupils are equal, round and reactive to light and accommodation. Ears: No lesions. Nose appeared normal. Throat: No exudate or erythema. NECK: Supple. No JVD, no carotid bruit. No lymphadenopathy or thyromegaly. LUNGS: Diminished breath sounds. Clear to auscultation. Percussion note normal. Chest symmetrical. HEART: S1, S2, no S3. No murmurs. No cyanosis or clubbing. No ascites. Pulses: Dorsalis pedis and posterior tibial pulses +1 to +2 both sides. ABDOMEN: Soft. Non-tender. Bowel sounds active. No CVA tenderness. No mass felt. EXTREMITIES: Trace edema. Negative Homans'. Soft, nontender, no redness. Full range of motion of all extremities, equal. NEUROLOGIC: No focal deficit. Cranial nerves II through XII are grossly intact. No headache, no double vision or headache. SKIN: Not dry. Intact. Turgor-normal. LYMPHATIC: No palpable lymph nodes/no lymphedema. MUSCULOSKELETAL: Normal joints with no swelling. Muscle tone is normal. LAB REVIEW: 09/18/17 04:25 09/18/17 04:25 09/18/17 04:25: Sodium 141, Potassium 4.6, Chloride 105, Carbon Dioxide 30, Anion Gap 10.6, BUN 34 H, Creatinine 1.59 H, Estimated GFR (MDRD) 41.00, BUN/ Creatinine Ratio 21.38, Glucose 230 H, Calcium 9.2, Total Bilirubin 0.5, AST 23 , ALT 25, Alkaline Phosphatase 61, Total Protein 5.5 L, Albumin 2.8 L, Globulin 2.7, Albumin/Globulin Ratio 1.04 09/18/17 04:25: WBC 6.21, RBC 3.88 L, Hgb 11.4 L, Hct 35.0 L, MCV 90.2, MCH 29.4 , MCHC 32.6, RDW Coeff of Danielle 13.9, Plt Count 116 L, Immature Gran % (Auto) 0.3 , Neut % (Auto) 62.3, Lymph % (Auto) 21.9, [place] % (Auto) 7.1, Eos % (Auto) 7.4 H , Baso % (Auto) 1.0, Immature Gran # (Auto) 0.0, Neut # (Auto) 3.9, Lymph # ( Auto) 1.4, [place] # (Auto) 0.4, Eos # (Auto) 0.5, Baso # (Auto) 0.1 ASSESSMENT: 1. DVT RIGHT LOWER EXTREMITY (COMMON FEMORAL, POPLITEAL) 2. HYPERTENSION 3. CKD PLAN: 1. D/C home. 2. Continue Norvasc. 3. Ultram 50 b.i.d. p.r.n. #30. 4. Discussed blood thinner use at home, risks of bleeding, and advised not to take any other NSAIDS. Plan and coordination of the patient's care discussed in the presence of Manager Grocery and nurse. CONDITION: Stable SCRIBED BY: ERNESTINE MANRIQUE Lvn Lpn scribed while in presence of service performed by Dr. Matos/Digna Quintero APRN on 09/18/17 ([id number])
[2017-09-18 09:41] VITALS: BP 155/64; TEMP 97.5
--- NOTE | 2017-09-18 09:42 | HP ---
DATE OF SERVICE: 09/15/17 REASON FOR HOSPITALIZATION/HISTORY OF PRESENT ILLNESS: 87 year old male who was recently hospitalized with lower extremity edema and swelling. We had scheduled him for an arterial study at [facility] on 09/14 at [place] in which they called and stated that as an incidental finding he was positive for DVT of the right extremity with the common femoral vein and popliteal vein. He was instructed to come here straight to the emergency room by Dr. Mas. PAST MEDICAL HISTORY: Chronic diarrhea Leg edema Hypertension History of DVT COPD Anemia Chronic kidney disease Sleep apnea Osteoarthritis Diabetes mellitus type 2 Dyslipidemia Coronary artery disease PAST SURGICAL HISTORY: None REVIEW OF SYSTEMS: CONSTITUTIONAL: No night sweats. No fatigue, malaise, lethargy. No fever or chills. Weakness. HEENT: Eyes: No visual changes. No eye pain. No eye discharge. ENT: No runny nose. No epistaxis. No sinus pain. No sore throat. No odynophagia. No ear pain. No congestion. RESPIRATORY: No cough, no congestion. No hemoptysis. No shortness of breath. CARDIOVASCULAR: No angina symptoms. No CHF symptoms. No atypical chest pain for CAD. No palpitations. No PND. No orthopnea. GASTROINTESTINAL: No abdominal pain. No nausea or vomiting. No diarrhea or constipation. No hematemesis. No hematochezia. GENITOURINARY: No urgency. No frequency. No dysuria. No hematuria. No obstructive symptoms. No discharge. No pain. No significant abnormal bleeding. MUSCULOSKELETAL: No musculoskeletal pain. No joint swelling. No arthritis. Chronic right left pain, bilateral leg edema. NEUROLOGICAL: No headache. No neck pain. No syncope. No seizures. No dizziness. PSYCHIATRIC: Not anxious. No depression. No suicidal thoughts. No homicidal thoughts. SKIN: No rash. No lesions. No wounds. ENDOCRINE: No unexplained weight loss. No weight gain. HEMATOLOGIC/LYMPHATIC: No anemia. No purpura. No petechiae. No prolonged or excessive bleeding. No palpable lymph nodes. PERSONAL/FAMILY/SOCIAL HISTORY: The patient is and lives at home with . Does not use alcohol or tobacco. MEDICATIONS: Xanax 0.5mg PO bedtime PRN Levemir 30 units SQ twice a day Crestor 10mg PO bedtime Aspirin 81mg PO daily Nexium 40mg PO daily Namzaric 28mg-10mg one each PO daily Aricept 10mg PO daily Gabapentin 300mg PO bedtime Cozaar 100mg Po daily Lasix 20mg PO MOTUWETHFR Lomotil 2.5-0.025PO twice a day PRN Bumetanide 0.5mg PO three times a day per week. ALLERGIES: Biaxin Levaquin PHYSICAL EXAMINATION: GENERAL: The patient is alert and oriented. VITAL SIGNS: Temperature 96.5, heart rate 69, respiratory rate 20, blood pressure 167/60, pulse ox 95%. HEENT: Head normocephalic, atraumatic. Eyes: Extraocular muscles are intact. Pupils are equal, round and reactive to light and accommodation. Ears: No lesions. Nose appeared normal. Throat: No exudate or erythema. NECK: Supple. No JVD, no carotid bruit. No lymphadenopathy or thyromegaly. LUNGS: Clear, equal and diminished. Percussion note normal. Chest symmetrical. HEART: S1, S2, no S3. No murmurs. No cyanosis or clubbing. No ascites. Pulses: Dorsalis pedis and posterior tibial pulses +2 bilaterally. ABDOMEN: Soft. Nontender. Bowel sounds active. No CVA tenderness. No mass felt. EXTREMITIES: Bilateral lower extremity edema. Slight more edema on the right lower extremity, non pitting. There is no redness. Negative Huff sign. No firmness. No calf tenderness. Full range of motion of all extremities, equal. NEUROLOGIC: No focal deficit. Cranial nerves II through XII are grossly intact. No headache, no double vision or headache. SKIN: Not dry. Intact. Turgor - normal. LYMPHATIC: No palpable lymph nodes/no lymphedema. MUSCULOSKELETAL: Normal joints with no swelling. Muscle tone is normal. LABS: WBC 8.21, hgb 12.1, hct 37.2, plt count 119. Arterial study from [facility] states bilateral lower extremity arterial system without evidence of stenosis however evidence of right common femoral and popliteal DVT, this was read by Dr. Mazariegos on 09/14/17. Sodium 138, potassium 4.3, BUN 54, Creatinine 2.1, glucose 351, GFR 30, total protein 6.3. ASSESSMENT: 1. DVT right popliteal vein 2. Acute on chronic kidney disease 3. Diabetes Mellitus type 2, uncontrolled 4. Chronic leg edema 5. Hypertension 6. Chronic diarrhea PLAN: 1. Will admit 2. Routine telemetry orders 3. Start on Lovenox 100mg Q 12 hours 4. Continue home medication 5. Start normal saline at 50cc an hour times one bag due to kidney function 6. Low sodium diet 7. CBC and CMP daily 8. Bilateral venous scan to confirm DVT 9. Continue all home medication 10. Vasotec 1.25mg IV Q 6 hours for systolic greater than 180 11. Will add Norvasc 5mg at night. Will follow closely. TIME SPENT: More than 70 minutes. MTDD
--- NOTE | 2017-09-18 12:04 | CM.DICTOOL ---
ADMISSION: 09/14/17 17:34 DISCHARGE: SEPTEMBER 18, 2017 DATE OF SERVICE: 09/18/17 FINAL DIAGNOSIS DVT, PARTIAL RLE PROFUNDA FEMORAL, POPLITEAL AND PERONEAL HYPERTENSION CAD CKD COPD DIABETES, TYPE 2 UNCONTROLLED CAD PVD GERD ANEMIA COLITIS, 09/06/2017 ANXIETY OSTEOARTHRITIS DYSLIPIDEMIA LAST VITALS Temp Pulse Resp BP Pulse Ox 97.5 F L 75 20 155/64 H 97 09/18/17 09:40 09/18/17 09:40 09/18/17 09:40 09/18/17 09:40 09/18/17 09:40 TAKE THESE MEDICATIONS AT HOME Alprazolam (Xanax) 0.5 mg PO BEDTIME PRN PRN Reason: Anxiety Last Admin: 09/17/17 20:36 Dose: 0.5 mg Amlodipine Besylate (Norvasc) 5 mg PO BEDTIME [facility] Last Admin: 09/17/17 20:35 Dose: 5 mg Aspirin (Aspirin Chewable) 81 mg PO DAILYWM [facility] Last Admin: 09/18/17 08:23 Dose: 81 mg Diphenoxylate HCl/Atropine (Lomotil) 1 tab PO BID PRN PRN Reason: Diarrhea Last Admin: 09/15/17 22:53 Dose: 1 tab Namzaric 28-10mg Daily Last Admin: 0823 Furosemide (Lasix Tab) 20 mg PO MoTuWeThFr@0630 [facility] Last Admin: 09/18/17 08:23 Dose: 20 mg Gabapentin (Neurontin) 300 mg PO TID [facility] Last Admin: 09/18/17 08:23 Dose: 300 mg Insulin Detemir (Levemir) 30 unit SUBCUT BIDAC [facility] Last Admin: 09/18/17 05:37 Dose: 30 unit Losartan Potassium (Cozaar) 100 mg PO DAILY [facility] Last Admin: 09/18/17 08:23 Dose: 100 mg Esomeprazole (Nexium) 40 mg PO QDAC [facility] Last Admin: 09/18/17 05:37 Dose: 40 mg Rosuvastatin Calcium (Crestor) 10 mg PO BEDTIME [facility] Last Admin: 09/17/17 20:34 Dose: 10 mg Eliquis 2.5 mg BID Scheduled Last Admin: ALLERGIES clarithromycin [From Biaxin] Adverse Reaction (Verified 09/14/17 15:01) levofloxacin [From Levaquin] Adverse Reaction (Verified 09/14/17 15:01) Discontinued Medications BUMEX NEW PRESCRIPTIONS: Norvasc 5 mg take at bedtime daily Eliquis 2.5 mg take twice a day SMOKING: Not applicable DISEASE SPECIFIC EDUCATION: Blood clot Prescriptions; including Eliquis Activity Appointment LAB REVIEW: 09/18/17 04:25 09/18/17 04:25 09/18/17 04:25: Sodium 141, Potassium 4.6, Chloride 105, Carbon Dioxide 30, Anion Gap 10.6, BUN 34 H, Creatinine 1.59 H, Estimated GFR (MDRD) 41.00, BUN/ Creatinine Ratio 21.38, Glucose 230 H, Calcium 9.2, Total Bilirubin 0.5, AST 23 , ALT 25, Alkaline Phosphatase 61, Total Protein 5.5 L, Albumin 2.8 L, Globulin 2.7, Albumin/Globulin Ratio 1.04 09/18/17 04:25: WBC 6.21, RBC 3.88 L, Hgb 11.4 L, Hct 35.0 L, MCV 90.2, MCH 29.4 , MCHC 32.6, RDW Coeff of Danielle 13.9, Plt Count 116 L, Immature Gran % (Auto) 0.3 , Neut % (Auto) 62.3, Lymph % (Auto) 21.9, Delta % (Auto) 7.1, Eos % (Auto) 7.4 H , Baso % (Auto) 1.0, Immature Gran # (Auto) 0.0, Neut # (Auto) 3.9, Lymph # ( Auto) 1.4, Delta # (Auto) 0.4, Eos # (Auto) 0.5, Baso # (Auto) 0.1 PLAN: DISCHARGE HOME DIET: REGULAR ACTIVITY: GRADUALLY RESUME TOLERATED ELEVATE LEGS WHEN SITTING AN APPOINTMENT IS SCHEDULED WITH DR. MATOS/YOANDY ESCOBAR APRN ON September AT 3 PM COME TO ER PROMPTLY IF ANY FALLS STRIKING THE HEAD MR. TELLO IS ALERT AND ORIENTED. HE REPORTS SLIGHT TENDERNESS OCCASIONALLY TO THE RIGHT INNER THIGH. NO REDNESS, WARMTH NOTED TO THE RIGHT LOWER EXTREMITY. HE IS ABLE TO TRANSFER WITH MINIMAL ASSISTANCE OF THE NURSING STAFF AND AMBULATE TO THE BATHROOM. HE UTILIZES HIS ROLLING WALKER FOR ASSISTANCE WITH AMBULATION. MEAL INTAKES ARE GOOD AT 100%. HE CONTINUES TO HAVE LOOSE STOOLS INTERMITTENTLY, 2 DURING THE NIGHT. HE IS CONTINENT OF BLADDER AND BOWEL. SKIN IS INTACT AND FREE OF DECUBITUS ULCERS. A LARGE AREA OF SCARRING IS NOTED TO THE LEFT CALF FROM A PREVIOUS BURN. SEVERAL SMALL SCABBED AREAS ARE NOTED TO THE LEFT CALF. SHOAIB MATOS MD YOANDY ESCOBAR APRN
--- NOTE | 2017-09-18 15:04 | PN ---
DATE OF SERVICE: 09/16/17 SUBJECTIVE: 87 year old white male hospitalized with DVT. The patient is being given Lovenox 100mg daily and venous scan that was done after initial scan that was done in [place] showed partial obstruction of complete small veins, the common femoral vein and popliteal seem to be open which were supposed to be occluded 24 hours. The patient is up and about and he doesn't have any pain. The patient has swelling of the legs which is lower then ever before. REVIEW OF SYSTEMS: CONSTITUTIONAL: No night sweats. No fatigue, malaise, lethargy. No fever or chills. HEENT: Eyes: No visual changes. No eye pain. No eye discharge. ENT: No runny nose. No epistaxis. No sinus pain. No sore throat. No odynophagia. No congestion. RESPIRATORY: No cough, no congestion. No hemoptysis. No shortness of breath. CARDIOVASCULAR: No angina symptoms. No CHF symptoms. No atypical chest pain for CAD. No palpitations. No orthopnea. GASTROINTESTINAL: No abdominal pain. No nausea or vomiting. No diarrhea or constipation. No hematemesis. No hematochezia. GENITOURINARY: No urgency. No frequency. No dysuria. No hematuria. No obstructive symptoms. No discharge. No pain. No significant abnormal bleeding. MUSCULOSKELETAL: No musculoskeletal pain; no joint swelling. NEUROLOGICAL: No headache. No neck pain. No syncope. No seizures. No dizziness. PSYCHIATRIC: Not anxious. No depression. No suicidal thoughts. No homicidal thoughts. SKIN: No rash. No lesions. No wounds. ENDOCRINE: No unexplained weight loss. No weight gain. HEMATOLOGIC/LYMPHATIC: No anemia. No purpura. No petechiae. No prolonged or excessive bleeding. No palpable lymph nodes. PHYSICAL EXAMINATION: GENERAL: The patient is oriented to time, place and person. VITAL SIGNS: Temperature 97.8, pulse 70, respiratory rate 20, blood pressure 150/70 and pulse ox 93%. HEENT: Head normocephalic, atraumatic. Eyes: Extraocular muscles are intact. Pupils are equal, round and reactive to light and accommodation. Ears: No lesions. Nose appeared normal. Throat: No exudate or erythema. NECK: Supple. No JVD, no carotid bruit. No lymphadenopathy or thyromegaly. LUNGS: Decreased breath sounds but clear to auscultation. Percussion note normal. Chest symmetrical. HEART: S1, S2, no S3. No murmurs. No cyanosis or clubbing. No ascites. Pulses: Dorsalis pedis and posterior tibial pulses +1 to +2 both sides. ABDOMEN: Soft. Nontender. Bowel sounds active. No CVA tenderness. No mass felt. EXTREMITIES: No edema. Full range of motion of all extremities, equal. Both extremities now look equal with trace edema. NEUROLOGIC: No focal deficit. Cranial nerves II through XII are grossly intact. No headache, no double vision or headache. SKIN: Not dry. Intact. Turgor - normal. LYMPHATIC: No palpable lymph nodes/no lymphedema. MUSCULOSKELETAL: Normal joints with no swelling. Muscle tone is normal. LABS: Creatinine 1.5, BUN 41 which is improving. Potassium 4.3, glucose 85 which was rechecked with Accu-check and reported as 200 after the meal. ASSESSMENT: 1. DVT seems to be resolving 2. Diabetes mellitus which seems to be better controlled 3. Chronic kidney disease 4. History of dilated cardio myopathy 5. Hypertension 6. Dyslipidemia 7. Non-compliance. PLAN: 1. Continue Lovenox 2. Leg elevation. TIME SPENT: More than 30 minutes. Plan and coordination of the patient's care discussed in the presence of nurse. RAYMOND
--- NOTE | 2017-09-19 08:44 | PN ---
DATE OF SERVICE: 09/17/17 SUBJECTIVE: The patient was hospitalized with DVT. The patient's leg edema is trace to maybe +1. He is doing a lot better and the is in the room. REVIEW OF SYSTEMS: CONSTITUTIONAL: No night sweats. No fatigue, malaise, lethargy. No fever or chills. HEENT: Eyes: No visual changes. No eye pain. No eye discharge. ENT: No runny nose. No epistaxis. No sinus pain. No sore throat. No odynophagia. No congestion. RESPIRATORY: No cough, no congestion. No hemoptysis. No shortness of breath. CARDIOVASCULAR: No angina symptoms. No CHF symptoms. No atypical chest pain for CAD. No palpitations. No orthopnea. GASTROINTESTINAL: No abdominal pain. No nausea or vomiting. No diarrhea or constipation. No hematemesis. No hematochezia. GENITOURINARY: No urgency. No frequency. No dysuria. No hematuria. No obstructive symptoms. No discharge. No pain. No significant abnormal bleeding. MUSCULOSKELETAL: No musculoskeletal pain; no joint swelling. The patient had some leg pain. NEUROLOGICAL: No headache. No neck pain. No syncope. No seizures. No dizziness. PSYCHIATRIC: Not anxious. No depression. No suicidal thoughts. No homicidal thoughts. SKIN: No rash. No lesions. No wounds. ENDOCRINE: No unexplained weight loss. No weight gain. HEMATOLOGIC/LYMPHATIC: No anemia. No purpura. No petechiae. No prolonged or excessive bleeding. No palpable lymph nodes. PHYSICAL EXAMINATION: GENERAL: The patient is oriented to time, place and person. HEENT: Head normocephalic, atraumatic. Eyes: Extraocular muscles are intact. Pupils are equal, round and reactive to light and accommodation. Ears: No lesions. Nose appeared normal. Throat: No exudate or erythema. NECK: Supple. No JVD, no carotid bruit. No lymphadenopathy or thyromegaly. LUNGS: Clear to auscultation. Percussion note normal. Chest symmetrical. HEART: S1, S2, no S3. No murmurs. No cyanosis or clubbing. No ascites. Pulses: Dorsalis pedis and posterior tibial pulses +1 to +2 both sides. ABDOMEN: Soft. Nontender. Bowel sounds active. No CVA tenderness. No mass felt. EXTREMITIES: No edema. Full range of motion of all extremities, equal. Calf nontender. No redness noted. NEUROLOGIC: No focal deficit. Cranial nerves II through XII are grossly intact. No headache, no double vision or headache. SKIN: Not dry. Intact. Turgor - normal. LYMPHATIC: No palpable lymph nodes/no lymphedema. MUSCULOSKELETAL: Normal joints with no swelling. Muscle tone is normal. ASSESSMENT: 1. DVT PLAN: 1. Put him on Xarelto or Eliquis 2. Side effects of Novel blood thinners discussed with both and the and explained that patient doesn't need to be any nonsteroidal anti- inflammatory, side effects with GI bleed and intracranial bleed discussed and what can happen with Novel blood thinners. This is patient's first episode of DVT. We will put him on it for 6 months. The patient has several risk factors; diabetes which is uncontrolled. The patient is noncompliant of diet, medication and lifestyle. PROGNOSIS: Guarded. TIME SPENT: More than 30 minutes. Plan and coordination of the patient's care discussed in the presence of nurse. RAYMOND
--- NOTE | 2017-09-20 13:56 | PN ---
DATE OF SERVICE: 09/18/17 SUBJECTIVE: The patient was seen and examined with Nurse Practitioner. The patient had DVT. The patient was up and about. Poor compliance in all aspects of patient's care like medication, followup etc. PHYSICAL EXAMINATION: HEENT: Head normocephalic, atraumatic. Eyes: Extraocular muscles are intact. Pupils are equal, round and reactive to light and accommodation. Ears: No lesions. Nose appeared normal. Throat: No exudate or erythema. NECK: Supple. No JVD, no carotid bruit. No lymphadenopathy or thyromegaly. LUNGS: Clear to auscultation. Percussion note normal. Chest symmetrical. HEART: S1, S2, no S3. No murmurs. No cyanosis or clubbing. No ascites. Pulses: Dorsalis pedis and posterior tibial pulses +1 to +2 both sides. ABDOMEN: Soft. Nontender. Bowel sounds active. No CVA tenderness. No mass felt. EXTREMITIES: No edema. Full range of motion of all extremities, equal. NEUROLOGIC: No focal deficit. Cranial nerves II through XII are grossly intact. No headache, no double vision or headache. SKIN: Not dry. Intact. Turgor - normal. LYMPHATIC: No palpable lymph nodes/no lymphedema. MUSCULOSKELETAL: Normal joints with no swelling. Muscle tone is normal. PLAN: 1. Eliquis, discussed Eliquis and side effects. He is over 79 and had abnormal liver function, we will put him on 2.5 twice a day for next 6 months. Side effects like GI bleed and intracranial bleed discussed. CONDITION: Stable. TIME SPENT: More than 30 minutes. Plan and coordination of the patient's care discussed in the presence of nurse. RAYMOND
--- NOTE | 2017-09-20 13:57 | PN ---
09/14/17: Level 5 09/15/17: Intermediate 09/16/17: Intermediate 09/17/17: Intermediate 09/18/17: D as in discharge MTDD
--- NOTE | 2017-09-21 11:27 | DS ---
DATE OF SERVICE: 09/18/17 FINAL DIAGNOSIS: 1. DVT, partial right lower extremity profunda femoral, popliteal and peroneal 2. Hypertension 3. CAD 4. Chronic kidney disease 5. COPD 6. Diabetes Mellitus, type2 uncontrolled 7. CAD 8. PVD 9. GERD 10.Anemia 11.Colitis, 09/06/17 12.Anxiety 13.Osteoarthritis 14.Dyslipidemia LAST VITALS: Temperature 97.5, pulse 75, respiratory rate 20, blood pressure 155/64 and pulse ox 97%. DISCHARGE INSTRUCTIONS: Discharge home. Elevate legs when sitting. An appointment is scheduled with Dr. Mas/Digna Quintero APRN on September 22 at 3pm. Come to ER promptly if any falls striking the head. MEDICATIONS AT DISCHARGE: Xanax 0.5mg PO bedtime PRN Norvasc 5mg PO bedtime Aspirin 81mg PO daily Lomotil 1 tablet PO twice a day PRn Namzaric 28-10mg daily Lasix 20mg PO MoTuWeThFr @ 630 Neurontin 300mg PO three times a day Levemir 30 unit SUBCUT twice a day Cozaar 100mg PO daily Nexium 40mg Po QDAC Crestor 10mg PO bedtime Eliquis 2.5mg Twice a day ALLERGIES: Clarithromycin Levofloxacin DISCONTINUED MEDICATION: Bumex NEW PRESCRIPTIONS: Norvasc 5mg take at bedtime daily Eliquis 2.5mg take twice a day DIET INSTRUCTIONS: Regular ACTIVITY: Gradually resume as tolerated SMOKING: N/A DISEASE SPECIFIC EDUCATION: Blood clot Prescriptions, including Eliquis Activity Appointment. HOSPITAL COURSE: This is an 87 year old white male who presented to the emergency room after having an arterial study done at [facility]. The Public Health Social Worker called and stated that incidentally during the the arterial study they found that he had a DVT in the right common femoral and popliteal vein. We instructed them to send him [facility] where he was subsequently admitted and placed on Lovenox 100mg SUBCUT twice a day. His home medications were all continued. He did have elevation and blood pressure upon admission where he had to receive Vasotec 1.25mg IV. He received this several times during this course of his hospital stay. We adjusted some of his medications. He will now go home on Norvasc 5mg at bedtime which is a new medication for him. A venous scan was also done a day after admission which showed partial DVT in the popliteal vein and nothing in the common femoral vein. He has been on Lovenox which was changed over the weekend to once daily. Even on admission Clinically the only symptom of DVT which he presented with was pain as a thrombin in nature in the right lower extremity. He had trace bilateral leg edema but in the right lower extremity there was no redness, no pitting and his calf was soft, not firm. He had a negative Huff's sign. Again there was no redness or swelling. No obvious sign of DVT in that right lower extremity. There has been some improvement based on the venous scan. This has been discussed in detail with him and he has agreed to go home on Eliquis due to his age and chronic kidney disease we will send him home on Eliquis 2.5mg twice a day as he has already been anticoagulated for several days on Lovenox. We had discussed the risks versus the benefits of Eliquis and the risks of bleeding, intracranial hemorrhage, GI bleed. We have instructed him to go to the emergency room if he suffers from any fall, he is not to take any other NSAIDS along with this medication. His blood pressure has been well controlled on the Norvasc so he will go home with the Norvasc and Eliquis as new medications. Today temperature 97.5, heart rate 75, respiratory rate 20, blood pressure 140/64 and pulse ox 97 % on room air. This morning on examination it appears normal. Diminished breath sounds bilaterally again trace edema in bilateral lower extremities which is chronic otherwise there is no significant difference between the right and left lower extremities. There is no outward signs of DVT. We will followup with him in the office next week. He will discharged home in stable condition. All his medications have been reviewed and discussed, literature has been provided regarding Eliquis. Both the patient and his are agreeable. TIME SPENT: More than 60 minutes. RAYMOND
== END 2017-09-18 13:30 | disposition home or self-care (01) | DRG 301 ==
LOC: ED 14:52 → OBSVTOIN 17:34 → MEDSURG A 17:34
PROVIDERS: ADMIT Internal Medicine; ATTEND Internal Medicine
DX: I82.431 Acute embolism and thrombosis of right popliteal vein (principal); I82.411 Acute embolism and thrombosis of right femoral vein; R53.1 Weakness; Z79.4 Long term (current) use of insulin; E78.5 Hyperlipidemia, unspecified; J44.9 Chronic obstructive pulmonary disease, unspecified; I12.9 Hypertensive chronic kidney disease with stage 1 through stage 4 chronic kidney disease, or unspecified chronic kidney disease; N18.9 Chronic kidney disease, unspecified; G47.30 Sleep apnea, unspecified; M19.90 Unspecified osteoarthritis, unspecified site; I25.10 Atherosclerotic heart disease of native coronary artery without angina pectoris; E11.65 Type 2 diabetes mellitus with hyperglycemia; I73.9 Peripheral vascular disease, unspecified; K21.9 Gastro-esophageal reflux disease without esophagitis; D64.9 Anemia, unspecified; F41.9 Anxiety disorder, unspecified
CPT/HCPCS: 36415; 80053; 82962; 85025; 85610; 85730; 87081; 96372; 99284

== ENCOUNTER 2017-09-22 15:14 | Inpatient (IN) ==
[2017-09-22 15:39] VITALS: BMI 34.9
[2017-09-22] MEDS ORDERED: VISTARIL INJ IM PRN (15:43)
[2017-09-22] MEDS ORDERED: NITROSTAT SL PRN (15:43)
[2017-09-22] MEDS ORDERED: DECADRON 4 MG/ML SDV IM STA (15:43)
[2017-09-22] MEDS ORDERED: TYLENOL PO PRN (15:43)
[2017-09-22] MEDS ORDERED: MORPHINE 4 MG/ML VIAL IVP PRN (15:43)
[2017-09-22] MEDS ORDERED: LASIX IVP STA (15:43)
[2017-09-22] MEDS ORDERED: ATROPINE SULFATE PFS IVP PRN (15:43)
[2017-09-22] MEDS ORDERED: LOMOTIL PO PRN (16:02)
[2017-09-22] MEDS ORDERED: ULTRAM PO PRN (16:02)
--- NOTE | 2017-09-22 16:48 | US ---
EXAM: Bilateral lower extremity venous Doppler History: Bilateral lower extremity edema, follow-up deep venous thrombosis. Technique: Multiple sonographic images through the bilateral lower extremities were obtained. Color duplex Doppler was used to interrogate vascular flow. Findings: Persistent nonocclusive thrombosis within the right lower extremity which is probably slightly progre ssed with new areas of nonocclusive thrombus identified within the common femoral vein and proximal s uperficial femoral vein. No thrombosis is seen within the left lower extremity venous structures. T here is bilateral lower extremity subcutaneous edema. Impression: Slight interval progression of the nonocclusive right lower extremity venous thrombosis.
--- NOTE | 2017-09-22 16:50 | DI ---
EXAM: Chest one view HISTORY: Shortness of air COMPARISON: 09/06/2017 TECHNIQUE: Single view of the chest was performed FINDINGS: Low lung volumes. The lungs are grossly clear. There is no pleural effusion or pneumotho rax. The heart is normal in size. The mediastinal contour is normal. There are no acute abnormalit ies of the bones. IMPRESSION: Low lung volumes. No definite acute cardiopulmonary process.
[2017-09-22] MEDS ORDERED: INSULIN DETEMIR 30 UNIT SQ SCH (17:00)
[2017-09-22] MEDS: LEVEMIR SUBCUT SCH (17:22)
[2017-09-22] MEDS ORDERED: NON-FORMULARY MEDICATION (Apixaban [Eliquis] 2.5 MG) PO SCH (21:00)
[2017-09-22] MEDS ORDERED: NON-FORMULARY MEDICATION (Rosuvastatin Calcium [Crestor] 10 MG) PO SCH (21:00)
[2017-09-22] MEDS: HUMULIN R SUBCUT PRN (21:40)
[2017-09-22] MEDS: NEURONTIN PO SCH (21:40)
[2017-09-22] MEDS: ELIQUIS PO SCH (21:41)
[2017-09-22] MEDS: NAMENDA PO SCH (21:41)
[2017-09-22] MEDS: NORVASC PO SCH (21:41)
[2017-09-22] MEDS: XANAX PO PRN (21:41)
[2017-09-22] MEDS: CRESTOR PO SCH (21:41)
[2017-09-23] MEDS: PROTONIX PO SCH (05:45)
[2017-09-23] MEDS: HUMULIN R SUBCUT PRN ×4 (07:28→21:48)
[2017-09-23] MEDS ORDERED: ASPIRIN CHEWABLE PO SCH (09:00)
[2017-09-23] MEDS ORDERED: NON-FORMULARY MEDICATION (Memantine Hcl/Donepezil Hcl [Namzaric 28 Mg-10 Mg Capsule] 1 EAC PO SCH (09:00)
[2017-09-23] MEDS ORDERED: NON-FORMULARY MEDICATION (Esomeprazole Magnesium [Nexium] 40 MG) PO SCH (09:00)
[2017-09-23] MEDS: ASPIRIN EC PO SCH (09:04)
[2017-09-23] MEDS: ELIQUIS PO SCH ×2 (09:05→20:39)
[2017-09-23] MEDS: NAMENDA PO SCH ×2 (09:05→20:37)
[2017-09-23] MEDS: COZAAR PO SCH (09:05)
[2017-09-23] MEDS: ARICEPT PO SCH (09:05)
[2017-09-23] MEDS: LEVEMIR SUBCUT SCH ×2 (10:06→18:20)
[2017-09-23] MEDS: NEURONTIN PO SCH (20:37)
[2017-09-23] MEDS: CRESTOR PO SCH (20:37)
[2017-09-23] MEDS: NORVASC PO SCH (20:37)
[2017-09-24] MEDS: PROTONIX PO SCH (05:56)
[2017-09-24] MEDS: HUMULIN R SUBCUT PRN ×4 (06:23→21:09)
[2017-09-24] MEDS: COZAAR PO SCH (08:23)
[2017-09-24] MEDS: ASPIRIN EC PO SCH (08:23)
[2017-09-24] MEDS: NAMENDA PO SCH ×2 (08:23→20:16)
[2017-09-24] MEDS: ARICEPT PO SCH (08:23)
[2017-09-24] MEDS: ELIQUIS PO SCH ×2 (08:24→20:17)
[2017-09-24] MEDS: LEVEMIR SUBCUT SCH ×3 (08:24→22:22)
[2017-09-24] MEDS: DEXTROSE 5%-1/2NS IV SOLUTION 1,000 ML IV SCH (11:00)
[2017-09-24] MEDS: ROCEPHIN 1 GM in SODIUM CHLORIDE 50 ML IV SCH (11:01)
[2017-09-24] MEDS: NEURONTIN PO SCH (20:16)
[2017-09-24] MEDS: CRESTOR PO SCH (20:17)
[2017-09-25] MEDS: DEXTROSE 5%-1/2NS IV SOLUTION 1,000 ML IV SCH (00:04)
[2017-09-25] MEDS: LASIX TAB PO SCH (05:49)
[2017-09-25] MEDS: PROTONIX PO SCH (05:49)
[2017-09-25] MEDS: HUMULIN R SUBCUT PRN ×4 (06:35→20:45)
[2017-09-25] MEDS ORDERED: DEXTROSE 5%-1/2NS IV SOLUTION 1,000 ML IV SCH (08:30)
[2017-09-25] MEDS: ARICEPT PO SCH (08:48)
[2017-09-25] MEDS: COZAAR PO SCH (08:48)
[2017-09-25] MEDS: ROCEPHIN 1 GM in SODIUM CHLORIDE 50 ML IV SCH (08:48)
[2017-09-25] MEDS: ASPIRIN EC PO SCH (08:48)
[2017-09-25] MEDS: NAMENDA PO SCH ×2 (08:49→20:47)
[2017-09-25] MEDS: ELIQUIS PO SCH ×2 (08:49→20:46)
[2017-09-25] MEDS: LEVEMIR SUBCUT SCH ×2 (08:51→17:17)
--- NOTE | 2017-09-25 09:11 | PCM.PROG ---
Attending Provider: ATTENDING PROVIDER: Dr. SHOAIB MATOS This patient is seen with Digna Quintero, Nurse Practitioner. DATE OF SERVICE: 09/25/17 SUBJECTIVE: This 87 year old WHITE/ M was hospitalized 09/22/17. The patient is up and about using bathroom. Will get repeat CBC, CMP. He has been eating well. Leg edema has improved with less shortness of breath. REVIEW OF SYSTEMS: CONSTITUTIONAL: Weakness. No night sweats. No malaise, lethargy. No fever or chills. HEENT: Eyes: No visual changes. No eye pain. No eye discharge. ENT: No runny nose. No epistaxis. No sinus pain. No odynophagia. No congestion. RESPIRATORY: No cough, no congestion. No hemoptysis. No shortness of breath. CARDIOVASCULAR: No angina symptoms. No CHF symptoms. No atypical chest pain for CAD. No palpitations. No orthopnea.. GASTROINTESTINAL: No abdominal pain. No nausea or vomiting. No diarrhea or constipation. No hematemesis. No hematochezia. GENITOURINARY: No urgency. No frequency. No dysuria. No hematuria. No obstructive symptoms. No discharge. No pain. No significant abnormal bleeding. MUSCULOSKELETAL: No musculoskeletal pain; no joint swelling. NEUROLOGICAL: Awake, alert, oriented to time, place and person. No headache. No neck pain. No syncope. No seizures. No dizziness. PSYCHIATRIC: Not anxious. No depression. No suicidal thoughts. No homicidal thoughts. SKIN: Leg edema. No rash. No lesions. No wounds. ENDOCRINE: No unexplained weight loss. No weight gain. HEMATOLOGIC/LYMPHATIC: No anemia. No purpura. No petechiae. No prolonged or excessive bleeding. No palpable lymph nodes. PHYSICAL EXAMINATION: GENERAL: The patient is awake, alert and oriented, up and about in no distress. VITAL SIGNS: Temperature 97.6 F, Pulse 65, Respiratory Rate 18, BP 134/63, Pulse Ox 96% HEENT: Head normocephalic, atraumatic. Eyes: Extraocular muscles are intact. Pupils are equal, round and reactive to light and accommodation. Ears: No lesions. Nose appeared normal. Throat: No exudate or erythema. NECK: Supple. No JVD, no carotid bruit. No lymphadenopathy or thyromegaly. LUNGS: Diminished breath sounds bilaterally. Clear to auscultation. Percussion note normal. Chest symmetrical. HEART: S1, S2, no S3. No murmurs. No cyanosis or clubbing. No ascites. Pulses: Dorsalis pedis and posterior tibial pulses +1 to +2 both sides. ABDOMEN: Soft. Non-tender. Bowel sounds active. No CVA tenderness. No mass felt. EXTREMITIES: Trace leg edema bilaterally. Full range of motion of all extremities, equal. NEUROLOGIC: No focal deficit. Cranial nerves II through XII are grossly intact. No headache, no double vision or headache. SKIN: Not dry. Intact. Turgor-normal. LYMPHATIC: No palpable lymph nodes/no lymphedema. MUSCULOSKELETAL: Normal joints with no swelling. Muscle tone is normal. LAB REVIEW: 09/24/17 04:40 09/24/17 04:40 ASSESSMENT: 1. GENERALIZED WEAKNESS 2. LEG EDEMA 3. DVT RIGHT LOWER EXTREMITY (COMMON FEMORAL, POPLITEAL) 4. HYPERTENSION 5. CKD PLAN: 1. Decrease IV fluids to 42 mL/hr. 2. CBC CMP today. 3. Discussed with family and regarding NH placement for rehabilitation. Plan and coordination of the patient's care discussed in the presence of Nursing Care Attendant and nurse. CONDITION: Stable SCRIBED BY: David MAYESist scribed while in presence of service performed by Dr. Matos/Digna Quintero APRN on 09/25/17 (0718)
--- NOTE | 2017-09-25 14:38 | HP ---
DATE OF SERVICE: 09/22/17 HISTORY OF PRESENT ILLNESS: This is an 87-year-old male who presented for hospital followup. He was hospitalized for right DVT of leg. He is very weak, legs swollen, short of breath. PAST MEDICAL HISTORY: Diabetes mellitus type 2 Dementia DVT right leg Anemia Hyperglycemia Neuropathy Osteoarthritis Chronic renal failure PAST SURGICAL HISTORY: None REVIEW OF SYSTEMS: CONSTITUTIONAL: No fever. Fatigue. HEENT: No sinus drainage, no sore throat. RESPIRATORY: No cough, no congestion. CARDIOVASCULAR: Positive for shortness of breath. No atypical chest pain for coronary artery disease. No angina, CHF symptoms - shortness of breath, palpitations. GASTROINTESTINAL: No appetite. No melena or abdominal pain. No GERD. GENITOURINARY: No hematuria, no prostatism, no polyuria. UNDERTAKER HELPER: No blackout, no dizziness, no headache, no double vision. Gait: Wheelchair. MUSCULOSKELETAL: Osteoarthritis pain. ENDOCRINE: Unable to weigh the patient. SKIN: Not dry, no rash. PSYCHIATRIC: Not anxious, no depression, no suicidal thoughts, no homicidal thoughts. SOCIAL HISTORY: Nonsmoker. . No alcohol use. Five children. Retired. FAMILY HISTORY: Father and mother . Four brothers. Two sisters. MEDICATIONS: Losartan 25 mg (increased on 09/12 to 100 mg) one p.o. daily Crestor 10 mg one p.o daily at bedtime Levemir Flexpen inject 30 units subcutaneously two times per day after breakfast and after dinner Xanax 0.5 mg one p.o. one time per day p.r.n. Eliquis 2.5 mg twice daily Neurontin 300 mg three times daily (Decrease to bedtime only on 09/12) Lasix 20 mg 5 days a week Norvasc 5 mg once daily Namzaric 28 daily Nexium 40 daily Aspirin 81 mg Ultram 50 mg b.i.d. 09/18 Lomotil one each b.i.d. 09/12 ALLERGIES: CLARITHROMYCIN, LEVOFLOXACIN PHYSICAL EXAMINATION: V/S: Pulse 70, BP 104/52, 02 sat 92%. Height 5'9". GENERAL APPEARANCE: Oriented times three. Pale. HEENT: Normal. NECK: No JVP, no bruits. RESPIRATORY: Decreased breath sounds. Creps at the bases. CARDIOVASCULAR: S1, S2, no S3, no murmurs. No cyanosis, clubbing. No ascites. GI/ABDOMEN: No tenderness. Bowel sounds are active. EXTREMITIES: 2 to 3+ bilateral lower extremity edema, pulses +1, equal. UNDERTAKER HELPER: No blackout, no dizziness, no headache, no double vision. Gait: Wheelchair. RECTAL/PROSTATE: Prostate 03/22 (2.6) Colonoscopy 2012, Dr. Pro. ASSESSMENT: 1. Generalized weakness 2. Leg edema 3. Right leg DVT 4. Shortness of breath 5. DJD spine with back pain 6. Dementia 7. Hyperglycemia 8. Diabetes mellitus Type 2 9. Osteoarthritis 10. Anemia 11. Chronic renal failure 12. CKD4 13. B12 deficiency 14. Neuropathy 15. Noncompliant PLAN: 1. Admit 2. Routine telemetry orders 3. CBC, CMP today and daily 4. Chest x-ray 5. Bilateral venous scan today 6. Lasix 20 mg IV now 7. Continue home medications 8. ADA diet 9. Elevate legs 10. 1 cc Decadron IM today 11. Sliding scale coverage 12. Accu-checks 13. Continue Eliquis 2.5 mg b.i.d. TIME SPENT: More than 70 minutes. MTDD
[2017-09-25] MEDS: XANAX PO PRN (20:47)
[2017-09-25] MEDS: NEURONTIN PO SCH (20:47)
[2017-09-25] MEDS: CRESTOR PO SCH (20:47)
[2017-09-26] MEDS: HUMULIN R SUBCUT PRN (06:24)
[2017-09-26] MEDS: PROTONIX PO SCH (06:24)
[2017-09-26] MEDS: LASIX TAB PO SCH (06:24)
[2017-09-26] MEDS: ROCEPHIN 1 GM in SODIUM CHLORIDE 50 ML IV SCH (08:48)
[2017-09-26] MEDS: ARICEPT PO SCH (08:48)
[2017-09-26] MEDS: NAMENDA PO SCH (08:48)
[2017-09-26] MEDS: ASPIRIN EC PO SCH (08:48)
[2017-09-26] MEDS: COZAAR PO SCH (08:48)
[2017-09-26] MEDS: ELIQUIS PO SCH (08:49)
[2017-09-26] MEDS: LEVEMIR SUBCUT SCH (08:54)
--- NOTE | 2017-09-26 08:57 | PCM.PROG ---
Attending Provider: ATTENDING PROVIDER: Dr. SHOAIB MATOS This patient is seen with Digna Quintero, Nurse Practitioner. DATE OF SERVICE: 09/26/17 SUBJECTIVE: This 87 year old WHITE/ M was hospitalized 09/22/17. The patient is lying in bed resting comfortably. He is no longer short of breath. Leg edema has improved. Both he and have declined custodial placement for rehab. They state they would prefer to go home. Due to age, declining mental function, they will need Home Health for assistance. REVIEW OF SYSTEMS: CONSTITUTIONAL: Weakness. No night sweats. No malaise, lethargy. No fever or chills. HEENT: Eyes: No visual changes. No eye pain. No eye discharge. ENT: No runny nose. No epistaxis. No sinus pain. No odynophagia. No congestion. RESPIRATORY: No cough, no congestion. No hemoptysis. No shortness of breath. CARDIOVASCULAR: No angina symptoms. No CHF symptoms. No atypical chest pain for CAD. No palpitations. No orthopnea.. GASTROINTESTINAL: No abdominal pain. No nausea or vomiting. No diarrhea or constipation. No hematemesis. No hematochezia. GENITOURINARY: No urgency. No frequency. No dysuria. No hematuria. No obstructive symptoms. No discharge. No pain. No significant abnormal bleeding. MUSCULOSKELETAL: No musculoskeletal pain; no joint swelling. NEUROLOGICAL: Awake, alert, oriented to time, place and person. No headache. No neck pain. No syncope. No seizures. No dizziness. PSYCHIATRIC: Not anxious. No depression. No suicidal thoughts. No homicidal thoughts. SKIN: Leg edema. No rash. No lesions. No wounds. ENDOCRINE: No unexplained weight loss. No weight gain. HEMATOLOGIC/LYMPHATIC: No anemia. No purpura. No petechiae. No prolonged or excessive bleeding. No palpable lymph nodes. PHYSICAL EXAMINATION GENERAL: The patient is awake, alert and oriented, lying in bed in no distress. VITAL SIGNS: Temperature 98.0 F, Pulse 65, Respiratory Rate 18, BP 147/76, Pulse Ox 97% HEENT: Head normocephalic, atraumatic. Eyes: Extraocular muscles are intact. Pupils are equal, round and reactive to light and accommodation. Ears: No lesions. Nose appeared normal. Throat: No exudate or erythema. NECK: Supple. No JVD, no carotid bruit. No lymphadenopathy or thyromegaly. LUNGS: Diminished breath sounds. Clear to auscultation. Percussion note normal. Chest symmetrical. HEART: S1, S2, no S3. No murmurs. No cyanosis or clubbing. No ascites. Pulses: Dorsalis pedis and posterior tibial pulses +1 to +2 both sides. ABDOMEN: Soft. Non-tender. Bowel sounds active. No CVA tenderness. No mass felt. EXTREMITIES: Trace bilateral leg edema. Full range of motion of all extremities, equal. NEUROLOGIC: No focal deficit. Cranial nerves II through XII are grossly intact. No headache, no double vision or headache. SKIN: Not dry. Intact. Turgor-normal. LYMPHATIC: No palpable lymph nodes/no lymphedema. MUSCULOSKELETAL: Normal joints with no swelling. Muscle tone is normal. LAB REVIEW: 09/26/17 07:13 09/26/17 07:13 09/26/17 07:13: Sodium 141, Potassium 4.5, Chloride 105, Carbon Dioxide 27, Anion Gap 13.5, BUN 41 H, Creatinine 1.98 H, Estimated GFR (MDRD) 32.00, BUN/ Creatinine Ratio 20.70, Glucose 182 H, Calcium 8.9, Total Bilirubin 0.5, AST 23 , ALT 28, Alkaline Phosphatase 60, Total Protein 6.4, Albumin 2.8 L, Globulin 3.6, Albumin/Globulin Ratio 0.78 09/26/17 07:13: WBC 7.97, RBC 3.86 L, Hgb 11.5 L, Hct 34.3 L, MCV 88.9, MCH 29.8 , MCHC 33.5, RDW Coeff of Danielle 14.1, Plt Count 148, Immature Gran % (Auto) 0.3, Neut % (Auto) 64.9, Lymph % (Auto) 21.8, [place] % (Auto) 4.9, Eos % (Auto) 7.5 H, Baso % (Auto) 0.6, Immature Gran # (Auto) 0.0, Neut # (Auto) 5.2, Lymph # (Auto ) 1.7, [place] # (Auto) 0.4, Eos # (Auto) 0.6, Baso # (Auto) 0.1 09/25/17 08:35: Sodium 140, Potassium 4.0, Chloride 105, Carbon Dioxide 28, Anion Gap 11.0, BUN 50 H, Creatinine 2.10 H D, Estimated GFR (MDRD) 30.00, BUN/ Creatinine Ratio 23.80, Glucose 219 H, Calcium 8.9, Total Bilirubin 0.6, AST 13 L, ALT 23, Alkaline Phosphatase 62, Total Protein 6.2, Albumin 2.8 L, Globulin 3.4, Albumin/Globulin Ratio 0.82 09/25/17 08:35: WBC 7.75, RBC 3.82 L, Hgb 11.5 L, Hct 33.9 L, MCV 88.7, MCH 30.1 , MCHC 33.9, RDW Coeff of Danielle 13.9, Plt Count 137 L, Immature Gran % (Auto) 0.3 , Neut % (Auto) 62.1, Lymph % (Auto) 25.8, [place] % (Auto) 4.9, Eos % (Auto) 6.3, Baso % (Auto) 0.6, Immature Gran # (Auto) 0.0, Neut # (Auto) 4.8, Lymph # (Auto ) 2.0, [place] # (Auto) 0.4, Eos # (Auto) 0.5, Baso # (Auto) 0.1 ASSESSMENT: 1. GENERALIZED WEAKNESS 2. LEG EDEMA 3. DVT RIGHT LOWER EXTREMITY (COMMON FEMORAL, POPLITEAL) 4. HYPERTENSION 5. CKD PLAN: 1. Continue all medications including Lasix 5 days a week. 2. Keep legs elevated. 3. Low sodium diet. 4. CHF discussed in detail. 5. Refer to [facility] for nursing services, medication management, PT /OT. [facility] for homemaking services. 6. Discharge home. Plan and coordination of the patient's care discussed in the presence of Human Resources Specialist and nurse. CONDITION: Stable SCRIBED BY: ERNESTINE MANRIQUE Plant Maintenance Technician scribed while in presence of service performed by Dr. Matos/Digna Quintero APRN on 09/26/17 ([id number])
[2017-09-26 10:17] VITALS: BP 130/67; TEMP 97.7
--- NOTE | 2017-09-26 10:54 | CM.DICTOOL ---
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, X-RAY L-SPINE BURSITIS, RIGHT SHOULDER ANXIETY DEMENTIA HISTORY OF DVT, RIGHT LOWER EXTREMITY BPH CATARACT EXTRACTION, 2003 NEVER SMOKER LAST PFT COMPLETED AT [facility], 05/24/17 SEVERE COPD LAST ECHO AT [facility], 09/12/17 [facility] WITH ENLARGED LEFT ATRIAL CAVITY LEFT VENTRICULAR CONTRACTILITY 57% - NORMAL BORDERLINE ENLARGED RIGHT VENTRICULAR CAVITY NORMAL VALVES LAST VITALS Temp Pulse Resp BP Pulse Ox 98.0 F 65 18 147/76 H 97 09/26/17 05:25 09/26/17 05:25 09/26/17 05:25 09/26/17 05:25 09/26/17 05:25 TAKE THESE MEDICATIONS AT HOME Alprazolam (Xanax) 0.5 mg PO BEDTIME PRN PRN Reason: Anxiety Last Admin: 09/25/17 20:47 Dose: 0.5 mg Amlodipine Besylate (Norvasc) 5 mg PO BEDTIME Apixaban (Eliquis) 2.5 mg PO BID [facility] Last Admin: 09/26/17 08:49 Dose: 2.5 mg Aspirin (Aspirin Ec) 81 [facility] [place] [place] Admin: 09/26/17 08:48 Dose: 81 mg Diphenoxylate HCl/Atropine (Lomotil) 1 tab PO BID PRN PRN Reason: Diarrhea Esomeprazole Magnesium (Nexium) 40 mg PO DAILY Furosemide (Lasix Tab) 20 mg PO [id number] [facility] Last Admin: 09/26/17 06:24 Dose: 20 mg Gabapentin (Neurontin) 300 mg PO BEDTIME [facility] Last Admin: 09/25/17 20:47 Dose: 300 mg Insulin Detemir (Levemir) 35 unit SUBCUT BIDWM [facility] Last Admin: 09/26/17 08:54 Dose: 35 unit Losartan Potassium (Cozaar) 100 mg PO DAILY [facility] Last Admin: 09/26/17 08:48 Dose: 100 mg Memantine HCL/Donepezil HCL (Namzaric 28 mg-10 mg CAP) PO DAILY Rosuvastatin Calcium (Crestor) 10 mg PO BEDTIME [facility] Last Admin: 09/25/17 20:47 Dose: 10 mg Tramadol HCl (Ultram) 50 mg PO BID PRN PRN Reason: Pain ALLERGIES clarithromycin [From Biaxin] Adverse Reaction (Verified 09/14/17 15:01) levofloxacin [From Levaquin] Adverse Reaction (Verified 09/14/17 15:01) NEW PRESCRIPTIONS: NO NEW PRESCRIPTIONS SMOKING: NONSMOKER DISEASE SPECIFIC EDUCATION: WEAKNESS CHRONIC LEG EDEMA UTI (E.COLI ORGANISM) DVT, RIGHT LOWER EXTREMITY HOME MEDICATIONS FOLLOW UP HOME HEALTH SERVICES HOMEMAKING SERVICES LONG TERM ADMISSION FOR REHAB (PATIENT DECLINED) LAB REVIEW: 09/26/17 07:13 09/26/17 07:13 09/26/17 07:13: Sodium 141, Potassium 4.5, Chloride 105, Carbon Dioxide 27, Anion Gap 13.5, BUN 41 H, Creatinine 1.98 H, Estimated GFR (MDRD) 32.00, BUN/ Creatinine Ratio 20.70, Glucose 182 H, Calcium 8.9, Total Bilirubin 0.5, AST 23 , ALT 28, Alkaline Phosphatase 60, Total Protein 6.4, Albumin 2.8 L, Globulin 3.6, Albumin/Globulin Ratio 0.78 09/26/17 07:13: WBC 7.97, RBC 3.86 L, Hgb 11.5 L, Hct 34.3 L, MCV 88.9, MCH 29.8 , MCHC 33.5, RDW Coeff of Danielle 14.1, Plt Count 148, Immature Gran % (Auto) 0.3, Neut % (Auto) 64.9, Lymph % (Auto) 21.8, [place] % (Auto) 4.9, Eos % (Auto) 7.5 H, Baso % (Auto) 0.6, Immature Gran # (Auto) 0.0, Neut # (Auto) 5.2, Lymph # (Auto ) 1.7, [place] # (Auto) 0.4, Eos # (Auto) 0.6, Baso # (Auto) 0.1 PLAN: DISCHARGE HOME TODAY RETURN TO SEE DR. MATOS/YOANDY ESCOBAR APRN, IN THE OFFICE ON 10/05/17 AT 11:15 [facility] WILL NOTIFY YOU TO SET UP AN APPOINTMENT FOR SERVICES: NURSING FOR GENERAL ASSESSMENT, MEDICATION COMPLIANCE. PT/OT WILL EVALUATE YOU FOR SERVICES FOR GAIT DYSFUNCTION, WEAKNESS, ENERGY CONSERVATION [facility] WILL NOTIFY YOU TO SCHEDULE AN EVALUATION FOR HOMEMAKING SERVICES RESUME YOUR HOME MEDICATIONS PER LIST PROVIDED BY THE NURSING STAFF PLEASE NOTE THE INCREASE IN YOUR LEVEMIR TO 35 UNITS TWICE DAILY WITH MEALS NO NEW PRESCRIPTIONS ACTIVITY GET PLENTY OF REST AT HOME. GRADUALLY INCREASE YOUR ACTIVITY ACCORDING TO YOUR TOLERATION ELEVATE YOUR FEET AND LEGS FREQUENTLY POSSIBLE DIET CONSISTENT CARBS SUMMARY THE PATIENT IS ALERT AND ORIENTED X3. AT TIMES HE BECOMES CONFUSED/FORGETFUL BUT REMAINS COOPERATIVE FOR CARE. MRS. TELLO IS VERY SUPPORTIVE IN REORIENTING HIM AND ASSISTING HIM WITH NEEDS. HIS DAUGHTER, JAVI INIGUEZ, IS ALSO VERY HELPFUL. CASE MANAGEMENT HAS MADE REFERRAL TO [facility] FOR NURSING SERVICES (GENERAL ASSESSMENT, MEDICATION COMPLIANCE), PT/OT FOR GAIT TRAINING, STRENGTHENING, ENERGY CONSERVATION AND SAFETY IN THE HOME. MR. TELLO DESIRES TO RETURN TO HIS HOME AT DISCHARGE. THE CHRONIC EDEMA TO BOTH LOWER EXTREMITIES HAS IMPROVED A GREAT DEAL DURING THIS STAY. MR. TELLO HAS BEEN COMPLIANT WITH INSTRUCTIONS TO KEEP HIS FEET/ LEGS ELEVATED FREQUENTLY POSSIBLE. WE HAVE BEEN ABLE TO RETAIN THE DOSE OF LASIX THE PATIENT TAKES AT HOME. ACCORDING TO THE DAUGHTER, JAVI INIGUEZ , THERE MAY BE PROBLEMS WITH MEDICATION ADMINISTRATION, MRS. TELLO ADMINISTERS BOTH MR. TELLO'S AND HER OWN MEDICATIONS. MS. INIGUEZ FEELS HER MOTHER MAY MISTAKENLY OMIT SOME OF THE MEDICATIONS. WE ARE REQUESTING THAT BOTH [facility] AND THE [facility] CARE[facility]IVER ASSIST WITH MEDICATION REMINDERS. MR. TELLO HAS A HEALED BURNED AREA TO HIS ENTIRE LEFT CALF AREA. OTHERWISE THE SKIN TURGOR IS FAIR. HE HAS NO DECUBITUS ULCERS AT DISCHARGE. HYDRATION AND NUTRITIONAL STATUS ARE VERY GOOD. THE PATIENT OFFERS NO COMPLAINTS OF PAIN OR DISCOMFORT. AND MRS. TELLO AND THEIR DAUGHTER ARE AWARE AND AGREEABLE FOR TODAY'S DISCHARGE PLANS. THEY WILL BE FOLLOWED THROUGH THE OFFICE SCHEDULED. CURRENT CODE STATUS DO NOT RESUSCITATE YOANDY ESCOBAR APRN SHOAIB MATOS M.D.
--- NOTE | 2017-09-27 11:52 | PN ---
DATE OF SERVICE: 09/23/17 SUBJECTIVE: The patient is doing well. His edema is much less. Kidney will be watched because if he used Lasix IV it's going to make his creatinine and BUN go up. The patient's appetite is not that good. He is on sliding scale. REVIEW OF SYSTEMS: CONSTITUTIONAL: No night sweats. Drowsy, fatigue and weakness. No fever or chills. HEENT: Eyes: No visual changes. No eye pain. No eye discharge. ENT: No runny nose. No epistaxis. No sinus pain. No sore throat. No odynophagia. No congestion. RESPIRATORY: No cough, no congestion. No hemoptysis. No shortness of breath. CARDIOVASCULAR: No angina symptoms. No CHF symptoms. No atypical chest pain for CAD. No palpitations. No orthopnea. GASTROINTESTINAL: No abdominal pain. No nausea or vomiting. No diarrhea or constipation. No hematemesis. No hematochezia. GENITOURINARY: No urgency. No frequency. No dysuria. No hematuria. No obstructive symptoms. No discharge. No pain. No significant abnormal bleeding. MUSCULOSKELETAL: No musculoskeletal pain; no joint swelling. NEUROLOGICAL: No headache. No neck pain. No syncope. No seizures. No dizziness. PSYCHIATRIC: Not anxious. No depression. No suicidal thoughts. No homicidal thoughts. SKIN: No rash. No lesions. No wounds. ENDOCRINE: No unexplained weight loss. No weight gain. HEMATOLOGIC/LYMPHATIC: No anemia. No purpura. No petechiae. No prolonged or excessive bleeding. No palpable lymph nodes. PHYSICAL EXAMINATION: GENERAL: The patient is oriented to time, place and person HEENT: Head normocephalic, atraumatic. Eyes: Extraocular muscles are intact. Pupils are equal, round and reactive to light and accommodation. Ears: No lesions. Nose appeared normal. Throat: No exudate or erythema. NECK: Supple. No JVD, no carotid bruit. No lymphadenopathy or thyromegaly. LUNGS: Decreased breath sounds but clear to auscultation. Percussion note normal. Chest symmetrical. HEART: S1, S2, no S3. No murmurs. No cyanosis or clubbing. No ascites. Pulses: Dorsalis pedis and posterior tibial pulses +1 to +2 both sides. ABDOMEN: Soft. Nontender. Bowel sounds active. No CVA tenderness. No mass felt. EXTREMITIES: No edema. Full range of motion of all extremities, equal. NEUROLOGIC: No focal deficit. Cranial nerves II through XII are grossly intact. No headache, no double vision or headache. SKIN: Not dry. Intact. Turgor - normal. LYMPHATIC: No palpable lymph nodes/no lymphedema. MUSCULOSKELETAL: Normal joints with no swelling. Muscle tone is normal. ASSESSMENT: 1. Weakness 2. Shortness of breath 3. Leg edema 4. Renal Azotemia PLAN: 1. Easy up on IV Lasix 2. Easy up on diuretic pill 3. Watch his kidney functions, if deteriorates may have to start IV fluids 4. Continue sliding scale 5. May have to increase Levemir dose but we will wait until tomorrow. TIME SPENT: More than 30 minutes. Plan and coordination of the patient's care discussed in the presence of nurse. RAYMOND
--- NOTE | 2017-09-27 13:13 | PN ---
DATE OF SERVICE: 09/24/17 SUBJECTIVE: The patient was hospitalized with weakness and shortness of breath and fatigue. The patient's condition has improved. He has frequency of urination with e-coli in his cultures of urine. Even though he doesn't have any fever or other symptoms we will treat him with Rocephin, Macrobid and other antibiotics because of his kidney functions. We are going to not use them. REVIEW OF SYSTEMS: CONSTITUTIONAL: No night sweats. Fatigue and drowsiness. No fever or chills. HEENT: Eyes: No visual changes. No eye pain. No eye discharge. ENT: No runny nose. No epistaxis. No sinus pain. No sore throat. No odynophagia. No congestion. RESPIRATORY: No cough, no congestion. No hemoptysis. No shortness of breath. CARDIOVASCULAR: No angina symptoms. No CHF symptoms. No atypical chest pain for CAD. No palpitations. No orthopnea. GASTROINTESTINAL: No abdominal pain. No nausea or vomiting. No diarrhea or constipation. No hematemesis. No hematochezia. GENITOURINARY: No urgency. No frequency. Dysuria. No hematuria. No obstructive symptoms. No discharge. No pain. No significant abnormal bleeding. MUSCULOSKELETAL: No musculoskeletal pain; no joint swelling. NEUROLOGICAL: No headache. No neck pain. No syncope. No seizures. No dizziness. PSYCHIATRIC: Not anxious. No depression. No suicidal thoughts. No homicidal thoughts. SKIN: No rash. No lesions. No wounds. ENDOCRINE: No unexplained weight loss. No weight gain. HEMATOLOGIC/LYMPHATIC: No anemia. No purpura. No petechiae. No prolonged or excessive bleeding. No palpable lymph nodes. PHYSICAL EXAMINATION: HEENT: Head normocephalic, atraumatic. Eyes: Extraocular muscles are intact. Pupils are equal, round and reactive to light and accommodation. Ears: No lesions. Nose appeared normal. Throat: No exudate or erythema. NECK: Supple. No JVD, no carotid bruit. No lymphadenopathy or thyromegaly. LUNGS: Clear to auscultation. Percussion note normal. Chest symmetrical. HEART: S1, S2, no S3. No murmurs. No cyanosis or clubbing. No ascites. Pulses: Dorsalis pedis and posterior tibial pulses +1 to +2 both sides. ABDOMEN: Soft. Nontender. Bowel sounds active. No CVA tenderness. No mass felt. EXTREMITIES: trace to +1 pitting edema. Full range of motion of all extremities, equal. NEUROLOGIC: No focal deficit. Cranial nerves II through XII are grossly intact. No headache, no double vision or headache. SKIN: Not dry. Intact. Turgor - normal. LYMPHATIC: No palpable lymph nodes/no lymphedema. MUSCULOSKELETAL: Normal joints with no swelling. Muscle tone is normal. ASSESSMENT: 1. Shortness of breath 2. Dizziness 3. Diabetes Mellitus 4. Possible urinary tract infection PLAN: 1. Discontinue Tramadol because of the drowsiness 2. Start IV fluids because of renal azotemia 3. Creatinine is 2.6 will give 1000cc D 5 1/2 normal saline 12 hour 4. Will increase the Levemir to 35 twice a day 5. The patient does not have any symptoms of CHF or coronary insufficiency. TIME SPENT: More than 30 minutes Plan and coordination of the patient's care discussed in the presence of nurse. RAYMOND
--- NOTE | 2017-09-27 14:53 | PN ---
DATE OF SERVICE: 09/25/17 SUBJECTIVE: The patient was hospitalized with weakness, fatigue and leg swelling. The patient's venous scan is acceptable. He was also confused at time according to the daughter. The patient has dementia. The patient even though oriented to time , place and person today the patient does not want to go to the longterm anymore. The patient's overall condition is improving. He is also explained about the medications and diet. He is noncompliant about his medications, diet and lifestyle. The patient was seen and examined with Nurse Practitioner. TIME SPENT: More than 30 minutes. Plan and coordination of the patient's care discussed in the presence of nurse. RAYMOND
--- NOTE | 2017-09-28 09:36 | PN ---
CODING FOR BILLING 09/22/17 LEVEL 5 09/23/17 INTERMEDIATE 09/24/17 INTERMEDIATE 09/25/17 INTERMEDIATE 09/26/17 DISCHARGE MTDD
--- NOTE | 2017-09-28 09:43 | PN ---
DATE OF SERVICE: 09/26/17 - DISCHARGE NOTE SUBJECTIVE: The patient was hospitalized with weakness, leg swelling and dementia. The patient's family wanted him to be in the senior care. The patient was checked out with venous scan which showed some deterioration of his DVT. The patient has been on Novel blood thinner for that and has done well. Leg swelling has practically subsided. Cardiovascular status was stable. His mental status was much better. The , along with him decided not to go to the senior care so the patient was sent home in stable condition to be followed. TIME SPENT: More than 30 minutes. Plan and coordination of the patient's care discussed in the presence of nurse. RAYMOND
--- NOTE | 2017-09-28 13:20 | DS ---
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, X-RAY L-SPINE BURSITIS, RIGHT SHOULDER ANXIETY DEMENTIA HISTORY OF DVT, RIGHT LOWER EXTREMITY BPH CATARACT EXTRACTION, 2003 NEVER SMOKER LAST PFT COMPLETED AT [facility], 05/24/17 SEVERE COPD LAST ECHO AT [facility], 09/12/17 [facility] WITH ENLARGED LEFT ATRIAL CAVITY LEFT VENTRICULAR CONTRACTILITY 57% - NORMAL BORDERLINE ENLARGED RIGHT VENTRICULAR CAVITY NORMAL VALVES LAST VITALS: Temp Pulse Resp BP Pulse Ox 98.0 F 65 18 147/76 H 97 TAKE THESE MEDICATIONS AT HOME: Alprazolam (Xanax) 0.5 mg PO BEDTIME PRN Amlodipine Besylate (Norvasc) 5 mg PO BEDTIME Apixaban (Eliquis) 2.5 mg PO BID [facility] Aspirin (Aspirin Ec) 81 mg PO DAILYWM [facility] Diphenoxylate HCl/Atropine (Lomotil) 1 tab PO BID PRN Esomeprazole Magnesium (Nexium) 40 mg PO DAILY Furosemide (Lasix Tab) 20 mg PO [id number] [facility] Gabapentin (Neurontin) 300 mg PO BEDTIME [facility] Insulin Detemir (Levemir) 35 unit SUBCUT BIDWM [facility] Losartan Potassium (Cozaar) 100 mg PO DAILY [facility] Memantine HCL/Donepezil HCL (Namzaric 28 mg-10 mg CAP) PO DAILY Rosuvastatin Calcium (Crestor) 10 mg PO BEDTIME [facility] Tramadol HCl (Ultram) 50 mg PO BID PRN ALLERGIES: clarithromycin [From Biaxin] Adverse Reaction (Verified 09/14/17 15:01) levofloxacin [From Levaquin] Adverse Reaction (Verified 09/14/17 15:01) NEW PRESCRIPTIONS: NO NEW PRESCRIPTIONS SMOKING: NONSMOKER DISEASE SPECIFIC EDUCATION: WEAKNESS CHRONIC LEG EDEMA UTI (E.COLI ORGANISM) DVT, RIGHT LOWER EXTREMITY HOME MEDICATIONS FOLLOW UP HOME HEALTH SERVICES HOMEMAKING SERVICES INTERMEDIATE ADMISSION FOR REHAB (PATIENT DECLINED) PLAN: DISCHARGE HOME TODAY RETURN TO SEE DR. MATOS/YOANDY ESCOBAR APRN, IN THE OFFICE ON 10/05/17 AT 11:15 [facility] WILL NOTIFY YOU TO SET UP AN APPOINTMENT FOR SERVICES: NURSING FOR GENERAL ASSESSMENT, MEDICATION COMPLIANCE. PT/OT WILL EVALUATE YOU FOR SERVICES FOR GAIT DYSFUNCTION, WEAKNESS, ENERGY CONSERVATION [facility] WILL NOTIFY YOU TO SCHEDULE AN EVALUATION FOR HOMEMAKING SERVICES RESUME YOUR HOME MEDICATIONS PER LIST PROVIDED BY THE NURSING STAFF PLEASE NOTE THE INCREASE IN YOUR LEVEMIR TO 35 UNITS TWICE DAILY WITH MEALS ACTIVITY: GET PLENTY OF REST AT HOME. GRADUALLY INCREASE YOUR ACTIVITY ACCORDING TO YOUR TOLERATION ELEVATE YOUR FEET AND LEGS FREQUENTLY POSSIBLE DIET: CONSISTENT [facility] HOSPITAL COURSE: This is an 87 year old white male who was recently hospitalized after an incidental finding of a DVT on an arterial scan. He was discharged home last week on Eliquis. He was previously admitted to that with leg edema, shortness of breath. We had changed him to PO Lasix from Bumex. He was discharged and had the arterial study as an outpatient at [facility]. They called us with the results of the DVT in the right lower extremity. He was then admitted for the DVT, sent home last week. He presented today in our office with acute shortness of breath +3 pitting bilateral lower extremities and hypotension. Lungs had crepitations at the bases. He was directly admitted from our office and placed on oxygen at 1-2 liters as needed, given IV Lasix 20mg and instructed to elevate his legs. Chest x-ray showed no pleural effusion. Repeat venous scan showed progression of improving DVT. Again he has been on Eliquis 2.5mg twice a day. He does have a history of chronic kidney disease. His BUN and creatinine did become significantly elevated from baseline over the weekend. It has improved slowly. He was started on normal saline at 42cc an hour. Today on day of discharge it is improved with BUN 50 and creatinine 2.1 which is normal for him. His hospitalization is likely due to noncompliance with lifestyle medication regimen. Both he and his were hospitalized at the same time. I do believe that they have trouble keep their medications straight. He does not sit with his legs elevated as he is instructed. Eats a regular normal diet instead of the low sodium. Over the course of 48 hours with one dose of IV Lasix his leg edema began to resolve and he diuresed on his own. Even given the fact that we gave him slow IV fluids. Today on day of discharge he is not short and not requiring any oxygen. His lungs are clear with no crepitations at the bases. His sugars have been controlled with a sliding scale. His kidney function again is back to baseline with creatinine around 2 and BUN around 40's -50's. He is instructed to take his Lasix five days a week and keep his legs elevated when possible. Low sodium diet, weight himself daily and report of weight gain greater than 3 pounds in one to two days. We will see him back in the office. He has declined long term placement for rehab for strengthening, Physical and Occupational therapy. We are leery of sending both he and his home together has they both have generalized weakness however they insist on going home but agreed to [facility]. We will discharge him home in stable condition. Blood pressure has been controlled and labs have stabled off. He has no leg edema today. Medications will remain unchanged again alot of education has been provided to both he and his regarding medication regimen and lifestyle. TIME SPENT: More than 60 minutes. RAYMOND
== END 2017-09-26 13:03 | disposition home or self-care (01) | DRG 300 ==
LOC: MEDSURG B 15:14
PROVIDERS: ADMIT Internal Medicine; ATTEND Internal Medicine
DX: I82.411 Acute embolism and thrombosis of right femoral vein (principal); I82.431 Acute embolism and thrombosis of right popliteal vein; N18.4 Chronic kidney disease, stage 4 (severe); R60.0 Localized edema; N40.1 Benign prostatic hyperplasia with lower urinary tract symptoms; E11.65 Type 2 diabetes mellitus with hyperglycemia; B96.20 Unspecified Escherichia coli [E. coli] as the cause of diseases classified elsewhere; K52.9 Noninfective gastroenteritis and colitis, unspecified; I10 Essential (primary) hypertension; I50.9 Heart failure, unspecified; I73.89 Other specified peripheral vascular diseases; I25.10 Atherosclerotic heart disease of native coronary artery without angina pectoris; J44.9 Chronic obstructive pulmonary disease, unspecified; F03.90 Unspecified dementia, unspecified severity, without behavioral disturbance, psychotic disturbance, mood disturbance, and anxiety; G62.9 Polyneuropathy, unspecified; D51.9 Vitamin B12 deficiency anemia, unspecified; E78.5 Hyperlipidemia, unspecified; F41.9 Anxiety disorder, unspecified; K21.9 Gastro-esophageal reflux disease without esophagitis; R42 Dizziness and giddiness; R06.02 Shortness of breath; R35.0 Frequency of micturition; M19.90 Unspecified osteoarthritis, unspecified site; M46.96 Unspecified inflammatory spondylopathy, lumbar region; M75.51 Bursitis of right shoulder; G47.30 Sleep apnea, unspecified; R63.4 Abnormal weight loss; Z68.35 Body mass index [BMI] 35.0-35.9, adult; Z87.81 Personal history of (healed) traumatic fracture; Z79.4 Long term (current) use of insulin; Z86.718 Personal history of other venous thrombosis and embolism; Z79.01 Long term (current) use of anticoagulants; Z91.14 Patient's other noncompliance with medication regimen
CPT/HCPCS: 36415; 80053; 81001; 82550; 82962; 84484; 85025; 87081; 87086; 87186; 93005; 93010

== ENCOUNTER 2017-12-12 12:01 | Inpatient (IN) | payer OTHER ==
--- NOTE | 2017-12-12 13:04 | ED.PDOC ---
General ED Provider: Dr. TRACY INMAN Chief Complaint: Altered Mental Status Stated Complaint: Agitated episodes related to worsening dementia. Went outside one night last week getting locked out until 3 AM. His daughter is accompanying him and states he becomes "mean" at times and unruly. Thinking he may need NH placement. Currently patient is pleasantly confused and aknowledges having memory problems. Time Seen by Physician: 12:45 Mode of Arrival: Walk-In Information Source: Patient, Family Exam Limitations: Clinical condition, Dementia Primary Care Provider: SHOAIB MATOS Referred to ED by: PCP Nursing and Triage Documentation Reviewed and Agree: Yes Does patient meet sepsis criteria?: No System Inflammatory Response Syndrome: Not Applicable Sepsis Protocol: For patient's 13 years and over: Temp is 96.8 and below OR 101 and greater Pulse >90 BPM Resp >20/minute Acutely Altered Mental Status Are patient's symptoms suggestive of a new infection, such as: -Pneumonia -Skin, Soft Tissue -Endocarditis -UTI -Bone, Joint Infection -Implantable Device -Acute Abdominal Infection -Wound Infection -Meningitis -Blood Stream Catheter Infection -Unknown Neurological Complaint Exam - Altered Mental Status Complaint/Exam Current Mental Status: Confusion Onset: Gradual Duration: seveal months Symptoms Are: Still present Timing: Constant (with intermittent o) Episodes Lasting: Weeks Initial Severity: Severe Current Severity: Severe Eye Deviation Present: No Character: Reports: Confusion Aggravating: Reports: Medication change Alleviating: Reports: None Related History: Reports: Prior attempt Carotid Bruit Present: No Nystagmus Present: No Gag Reflex Present: Yes Meningeal Signs Positive: No Focal Weakness: Present: None Focal Sensory Loss: Present: None Review of Systems - Review Of Systems Constitutional: Reports: No symptoms Eyes: Reports: No symptoms Ears, Nose, Mouth, Throat: Reports: No symptoms Respiratory: Reports: No symptoms Cardiac: Reports: No symptoms GI: Reports: No symptoms : Reports: No symptoms Musculoskeletal: Reports: No symptoms Skin: Reports: No symptoms Neurological: Reports: Cognitive dysfunction, Weakness Endocrine: Reports: No symptoms Hematologic/Lymphatic: Reports: No symptoms All Other Systems: Reviewed and Negative Past Medical History - Past Medical History Previously Healthy: No Endocrine: Reports: DM 1 ((insulin)), Dyslipidemia Cardiovascular: Reports: Hypertension, DVT (RIGHT (OLD RECORD)) Respiratory: Reports: COPD Hematological: Reports: None, Anemia ((OLD RECORD)) Gastrointestinal: Reports: None Genitourinary: Reports: CKD Neuro/Psych: Reports: None, Other (SLLEP APNEA(OLD RECORD)) Musculoskeletal: Reports: None, Arthritis ((OLD RECORD)) Cancer: Reports: None Other Pertinent Past Medical History: FALL IN TUB 04/26/2014 SEEN AT [facility] - Surgical History General Surgical History: Reports: Unknown - Family History Family History: Reports: Unknown - Social History Smoking Status: Never smoker Hx Substance Use: No Alcohol Screening: None Physical Exam - Physical Exam Appearance: Well-appearing, No pain distress, Well-nourished Eyes: NEMESIO ENT: Ears normal, Nose normal, Oropharynx normal Respiratory: Airway patent, Breath sounds clear, Breath sounds equal, Respirations nonlabored Cardiovascular: RRR GI/: Soft, Nontender, No masses, Bowel sounds normal, No Organomegaly Musculoskeletal: Normal strength Skin: Warm (inappropriate interaction ), Dry, Normal color Physician Notification - Case Discussed Physician Notified: Dr Matos Time of Notification: 15:15 (Agrees with admission ) Critical Care Note - Critical Care Note Total Time (mins): 30 Course - Course Hematology/Chemistry: 12/15/17 04:40 12/15/17 04:40 Orders, Labs, Meds: Lab Review 12/12/17 12/12/17 12/12/17 13:23 13:23 14:25 WBC 7.00 RBC 3.73 L Hgb 10.6 L Hct 32.6 L MCV 87.4 MCH 28.4 MCHC 32.5 RDW Coeff of Danielle 14.1 Plt Count 126 L Immature Gran % (Auto) 0.3 Neut % (Auto) 64.0 Lymph % (Auto) 24.7 [place] % (Auto) 6.7 Eos % (Auto) 3.6 Baso % (Auto) 0.7 Immature Gran # (Auto) 0.0 Neut # (Auto) 4.5 Lymph # (Auto) 1.7 [place] # (Auto) 0.5 Eos # (Auto) 0.3 Baso # (Auto) 0.1 Sodium 138 Potassium 3.9 Chloride 103 Carbon Dioxide 30 Anion Gap 8.9 BUN 26 H Creatinine 1.60 H Estimated GFR (MDRD) 41.00 BUN/Creatinine Ratio 16.25 Glucose 330 H Calcium 8.6 Total Bilirubin 0.9 AST 18 ALT 11 Alkaline Phosphatase 73 Total Creatine Kinase 40 L Total Protein 6.4 Albumin 3.2 L Globulin 3.2 Albumin/Globulin Ratio 1.00 Urine Color Yellow Urine Clarity Hazy Urine pH 5.5 Ur Specific [place] 1.020 Urine Protein Positive Urine Glucose (UA) 2+ Urine Ketones Negative Urine Blood Positive Urine Nitrite Negative Urine Bilirubin Negative Urine Urobilinogen 0.2 Ur Leukocyte Esterase Negative Urine Microscopic RBC Tntc Urine Microscopic WBC 0-2 Ur Squamous Epith Cells 0-2 Orders Category Date Time Status ADMIT PATIENT INPATIENT .TO MEDSURG (MONITORED BED) ADMISSION 12/12/17 15: 29 Active EKG-(ED ONLY) Stat CARDIO 12/12/17 13:11 Completed ACTIVITY .BR with BRP CARE 12/12/17 15:35 Completed GIVE HS SNACK 2100 CARE 12/12/17 15:36 Active INTAKE & OUTPUT Q8HR CARE 12/12/17 15:35 Active TELEMETRY MONITORING TELE CARE 12/12/17 15:30 Completed VITAL SIGNS Q8HR CARE 12/12/17 15:35 Completed ADA 1800 [place]. DIET DIETARY 12/12/17 Dinner Completed HS SNACK DIETARY 12/12/17 Dinner Completed ACCUCHECK (ED) [ED ACCUCHECK ASSESSMENT] .ONCE EMERGENCY 12/12/17 15:34 Active IV [ED IV/MEDIPORT/POWERPORT] .ONCE EMERGENCY 12/12/17 15:30 Active CBC W/ AUTO DIFF DAILY@0600 LAB 12/13/17 05:30 Completed CBC W/ AUTO DIFF DAILY@0600 LAB 12/14/17 04:30 Completed CBC W/ AUTO DIFF Stat LAB 12/12/17 13:23 Completed CMP [COMPREHENSIVE METABOLIC PANEL] Stat LAB 12/12/17 13:23 Completed COMPREHENSIVE METABOLIC PANEL DAILY@0600 LAB 12/13/17 05:30 Completed COMPREHENSIVE METABOLIC PANEL DAILY@0600 LAB 12/14/17 04:30 Completed CPK [CREATINE KINASE] Stat LAB 12/12/17 13:23 Completed UA [URINALYSIS C & S IF INDICATED] Stat LAB 12/12/17 14:25 Completed 0.9 % Sodium Chloride [Saline Flush] MEDS 12/12/17 15:30 Discontinued 1 syr IVF PRN PRN Sodium Chloride 0.9% [Sodium Chloride] 1,000 ml MEDS 12/12/17 15:30 Discontinued IV NOW RESUSCITATION STATUS Routine OTHERS 12/12/17 15:[address] HEAD W/O CONTRAST Stat RADS 12/12/17 13:10 Completed Medications Discontinued Medications Generic Name Dose Route Start Last Admin Trade Name Freq PRN Reason Stop Dose Admin Alprazolam 0.5 mg 12/12/17 17:26 12/13/17 21:14 Xanax PO 0.5 mg BEDTIME PRN Administration Anxiety Apixaban 2.5 mg 12/13/17 09:00 12/15/17 09:31 Eliquis PO 2.5 mg BID [facility] Administration Aspirin 81 mg 12/13/17 08:00 12/15/17 09:33 Aspirin Chewable PO 81 mg DAILYWM [facility] Administration Carvedilol 6.25 mg 12/13/17 08:30 12/15/17 09:31 Coreg PO 6.25 mg BIDWM [facility] Administration Donepezil HCl 10 mg 12/13/17 09:00 12/15/17 09:32 Aricept PO 10 mg DAILY [facility] Administration Furosemide 20 mg 12/13/17 09:00 12/15/17 06:34 Lasix Tab PO 20 mg QDAC [facility] Administration Furosemide 20 mg 12/16/17 06:00 Lasix Tab PO MOWEFRSA [facility] Gabapentin 300 mg 12/12/17 21:00 12/14/17 20:25 Neurontin PO 300 mg BEDTIME [facility] Administration Sodium Chloride 1,000 mls @ 125 mls/hr 12/12/17 15:30 12/12/17 17:02 Sodium Chloride IV 12/12/17 23:29 125 mls/hr NOW ONE Administration Sodium Chloride 1,000 mls @ 75 mls/hr 12/12/17 23:45 12/13/17 01:14 Sodium Chloride IV 75 mls/hr .[id number] CHUY Administration Sodium Chloride 1,000 mls @ 100 mls/hr 12/15/17 09:00 Sodium Chloride IV .Q10H [facility] Insulin Detemir 30 unit 12/13/17 08:00 12/15/17 09:34 Levemir SUBCUT 30 unit BIDWM [facility] Administration Insulin Human Regular 0 unit 12/12/17 17:15 12/14/17 21:00 Humulin R SUBCUT 3 unit PRN PRN Administration Hyperglycemia Protocol Lorazepam 1 mg 12/14/17 09:00 12/15/17 09:44 Ativan PO 1 mg BID [facility] Administration Losartan Potassium 100 mg 12/13/17 09:00 12/15/17 09:32 Cozaar PO 100 mg DAILY [facility] Administration Memantine 10 mg 12/13/17 09:00 12/15/17 09:33 Namenda PO 10 mg BID [facility] Administration Non-Formulary Medication 2.5 mg 12/12/17 21:00 12/12/17 20:47 Apixaban [Eliquis] PO Not Given BID [facility] Non-Formulary Medication 30 unit 12/12/17 17:30 12/12/17 17:41 Insulin Detemir [Levemir Flextouch] SQ Not Given BIDWM [facility] Non-Formulary Medication 10 mg 12/12/17 21:00 12/12/17 20:45 Rosuvastatin Calcium [Crestor] PO Not Given BEDTIME [facility] Nystatin 1 applic 12/14/17 09:00 12/15/17 09:31 Nystop Powder TP 1 applic BID [facility] Administration Pantoprazole Sodium 40 mg 12/13/17 09:00 12/15/17 06:34 Protonix PO 40 mg QDAC [facility] Administration Potassium Chloride 10 meq 12/14/17 09:00 12/15/17 09:40 Micro-K Cap PO Not Given DAILYWM [facility] Potassium Chloride 10 meq 12/16/17 08:00 12/15/17 09:33 Micro-K Cap PO 10 meq MOWEFRSA [facility] Administration Quetiapine Fumarate 12.5 mg 12/15/17 09:00 12/15/17 09:32 Seroquel PO 12.5 mg BID [facility] Administration Rosuvastatin Calcium 10 mg 12/13/17 21:00 12/14/17 20:22 Crestor PO 10 mg BEDTIME [facility] Administration Sodium Chloride 1 syr 12/12/17 15:30 Saline Flush IVF PRN PRN To flush IV Sodium Chloride 1 syr 12/13/17 13:00 12/15/17 06:11 Saline Flush IVF Not Given Q8HR [facility] Tramadol HCl 50 mg 12/12/17 21:00 12/15/17 09:33 Ultram PO 50 mg BID [facility] Administration Vital Signs: Temp Pulse Resp BP Pulse Ox 12/12/17 12:01 97.9 F 67 20 143/68 H 94 L Departure - Departure Time of Disposition: 15:40 Disposition: ADMITTED INPATIENT Discharge Problem: Altered mental status, Dementia Condition: Stable Pt referred to PMD for follow-up: Yes (Discussed with Dr Matos) IPMP verified?: No Allergies/Adverse Reactions: Allergies clarithromycin [From Biaxin] Adverse Reaction (Verified 12/12/17 12:14) levofloxacin [From Levaquin] Adverse Reaction (Verified 12/12/17 12:14) Home Medications: Ambulatory Orders Rosuvastatin Calcium [Crestor] 10 mg PO BEDTIME 04/29/15 Aspirin [Aspirin Chewable] 81 mg PO DAILY 07/20/15 Esomeprazole Magnesium [Nexium] 40 mg PO DAILY 09/06/17 Gabapentin 300 mg PO BEDTIME #30 capsule 09/12/17 Apixaban [Eliquis] 2.5 mg PO BID #60 tablet 09/18/17 Furosemide [Lasix Tab] 20 mg PO EVERY OTHER DAY PRN 12/12/17 Insulin Detemir [Levemir Flextouch] 30 unit SQ BIDWM 12/12/17 Losartan Potassium [Cozaar] 100 mg PO DAILY 12/12/17 Memantine HCl/Donepezil HCl [Namzaric 28 mg-10 mg Capsule] 1 each PO DAILY 12/12 Tramadol HCl [Ultram] 50 mg PO BID 12/12/17 Carvedilol [Coreg] 6.25 mg PO BIDWM #60 tablet 12/15/17 Lorazepam [Ativan] 1 mg PO BID #60 tablet 12/15/17 Nystatin [Nystop Powder] 1 applic TP BID #1 applic 12/15/17 Potassium Chloride [Micro-K Cap] 10 meq PO MOWEFRSA #16 capsule.er 12/15/17 Quetiapine Fumarate [Seroquel] 12.5 mg PO BID #60 tablet 12/15/17 Disposition Discussed With: Patient, Family
--- NOTE | 2017-12-12 14:13 | CT ---
EXAM: CT of the head without contrast History: Altered mental status. Comparison: Head CT 04/29/2015 Technique: Multiplanar CT images through the head were obtained without the administration of IV con trast Findings: Stable chronic mucosal thickening of the right sphenoid sinus. Mastoid air cells are maria g r in general. No acute calvarial abnormalities. Intracranially there is stable age appropriate atrophy. No dominant mass or midline shift. No hydro cephalous. No acute intracranial hemorrhage or abnormal extraaxial fluid collections. No change in the periventricular and subcortical white matter hypodensities. Impression: No acute intracranial process. Stable chronic age-related changes. Stable chronic righ t sphenoid sinus disease
[2017-12-12] MEDS ORDERED: SODIUM CHLORIDE 1,000 ML IV ONE (15:30)
[2017-12-12 16:26] VITALS: BMI 33.7
[2017-12-12] MEDS: HUMULIN R SUBCUT PRN ×2 (17:23→20:46)
[2017-12-12] MEDS ORDERED: XANAX PO PRN (17:26)
[2017-12-12] MEDS ORDERED: LASIX TAB PO PRN (17:26)
[2017-12-12] MEDS ORDERED: INSULIN DETEMIR 30 UNIT SQ SCH (17:30)
[2017-12-12] MEDS ORDERED: ELIQUIS ONE (20:41)
[2017-12-12] MEDS ORDERED: CRESTOR ONE (20:41)
[2017-12-12] MEDS: NEURONTIN PO SCH (20:45)
[2017-12-12] MEDS: ULTRAM PO SCH (20:45)
[2017-12-12] MEDS ORDERED: NON-FORMULARY MEDICATION (Rosuvastatin Calcium [Crestor] 10 MG) PO SCH (21:00)
[2017-12-12] MEDS ORDERED: NON-FORMULARY MEDICATION (Apixaban [Eliquis] 2.5 MG) PO SCH (21:00)
[2017-12-12] MEDS ORDERED: SODIUM CHLORIDE 1,000 ML IV SCH (23:45)
[2017-12-13] MEDS: HUMULIN R SUBCUT PRN ×4 (05:50→21:35)
--- NOTE | 2017-12-13 08:46 | PCM.PROG ---
Attending Provider: ATTENDING PROVIDER: Dr. SHOAIB MATOS This patient is seen with Digna Quintero, Nurse Practitioner. DATE OF SERVICE: 12/13/17 SUBJECTIVE: This 87 year old WHITE/ M was hospitalized 12/12/17. The patient is sitting in bed, resting comfortably. Sugars have been elevated along with blood pressure. The patient also has leg edema. There is concern that home medications may not have been given correctly. REVIEW OF SYSTEMS: CONSTITUTIONAL: Weakness. No night sweats. No malaise, lethargy. No fever or chills. HEENT: Eyes: No visual changes. No eye pain. No eye discharge. ENT: No runny nose. No epistaxis. No sinus pain. No odynophagia. No congestion. RESPIRATORY: No cough, no congestion. No hemoptysis. No shortness of breath. CARDIOVASCULAR: Positive for leg edema. No angina symptoms. No CHF symptoms. No atypical chest pain for CAD. No palpitations. No orthopnea. GASTROINTESTINAL: No abdominal pain. No nausea or vomiting. No diarrhea or constipation. No hematemesis. No hematochezia. GENITOURINARY: No urgency. No frequency. No dysuria. No hematuria. No obstructive symptoms. No discharge. No pain. No significant abnormal bleeding. MUSCULOSKELETAL: No musculoskeletal pain; no joint swelling. NEUROLOGICAL: Awake, alert, confusion. No headache. No neck pain. No syncope. No seizures. No dizziness. PSYCHIATRIC: Not anxious. No depression. No suicidal thoughts. No homicidal thoughts. SKIN: No rash. No lesions. No wounds. ENDOCRINE: No unexplained weight loss. No weight gain. HEMATOLOGIC/LYMPHATIC: No anemia. No purpura. No petechiae. No prolonged or excessive bleeding. No palpable lymph nodes. PHYSICAL EXAMINATION: GENERAL: The patient is awake, alert and oriented to person only, lying in bed in no distress. VITAL SIGNS: Temperature 98.5 F, Pulse 70, Respiratory Rate 18, BP 152/80, Pulse Ox 96% HEENT: Head normocephalic, atraumatic. Eyes: Extraocular muscles are intact. Pupils are equal, round and reactive to light and accommodation. Ears: No lesions. Nose appeared normal. Throat: No exudate or erythema. NECK: Supple. No JVD, no carotid bruit. No lymphadenopathy or thyromegaly. LUNGS: Diminished breath sounds. Clear to auscultation. Percussion note normal. Chest symmetrical. HEART: S1, S2, no S3. No murmurs. No cyanosis or clubbing. No ascites. Pulses: Dorsalis pedis and posterior tibial pulses +1 to +2 both sides. ABDOMEN: Soft. Non-tender. Bowel sounds active. No CVA tenderness. No mass felt. EXTREMITIES: +1 to +2 bilateral lower extremity edema. Full range of motion of all extremities, equal. NEUROLOGIC: No focal deficit. Cranial nerves II through XII are grossly intact. No headache, no double vision or headache. SKIN: Not dry. Intact. Turgor-normal. LYMPHATIC: No palpable lymph nodes/no lymphedema. MUSCULOSKELETAL: Normal joints with no swelling. Muscle tone is normal. LAB REVIEW: 12/13/17 05:30 12/13/17 05:30 12/13/17 05:30: TSH 1.630 12/13/17 05:30: Hemoglobin A1c 7.34 H 12/13/17 05:30: Sodium 140, Potassium 3.7, Chloride 105, Carbon Dioxide 31 H, Anion Gap 7.7, BUN 19, Creatinine 1.42 H, Estimated GFR (MDRD) 47.00, BUN/ Creatinine Ratio 13.38, Glucose 133 H D, Calcium 8.7, Total Bilirubin 1.1, AST 14 L, ALT 10, Alkaline Phosphatase 70, Total Protein 6.2 L, Albumin 3.2 L, Globulin 3.0, Albumin/Globulin Ratio 1.07 12/13/17 05:30: WBC 8.69, RBC 3.96 L, Hgb 11.4 L, Hct 34.2 L, MCV 86.4, MCH 28.8 , MCHC 33.3, RDW Coeff of Danielle 14.0, Plt Count 131 L, Immature Gran % (Auto) 0.2 , Neut % (Auto) 72.8, Lymph % (Auto) 18.0, [place] % (Auto) 5.2, Eos % (Auto) 3.2, Baso % (Auto) 0.6, Immature Gran # (Auto) 0.0, Neut # (Auto) 6.3, Lymph # (Auto ) 1.6, [place] # (Auto) 0.5, Eos # (Auto) 0.3, Baso # (Auto) 0.1 12/12/17 14:25: Urine Color Yellow, Urine Clarity Hazy, Urine pH 5.5, Ur Specific [place] 1.020, Urine Protein Positive, Urine Glucose (UA) 2+, Urine Ketones Negative, Urine Blood Positive, Urine Nitrite Negative, Urine Bilirubin Negative, Urine Urobilinogen 0.2, Ur Leukocyte Esterase Negative, Urine Microscopic RBC Tntc, Urine Microscopic WBC 0-2, Ur Squamous Epith Cells 0-2 12/12/17 13:23: Sodium 138, Potassium 3.9, Chloride 103, Carbon Dioxide 30, Anion Gap 8.9, BUN 26 H, Creatinine 1.60 H, Estimated GFR (MDRD) 41.00, BUN/ Creatinine Ratio 16.25, Glucose 330 H, Calcium 8.6, Total Bilirubin 0.9, AST 18 , ALT 11, Alkaline Phosphatase 73, Total Creatine Kinase 40 L, Total Protein 6.4 , Albumin 3.2 L, Globulin 3.2, Albumin/Globulin Ratio 1.00 12/12/17 13:23: WBC 7.00, RBC 3.73 L, Hgb 10.6 L, Hct 32.6 L, MCV 87.4, MCH 28.4 , MCHC 32.5, RDW Coeff of Danielle 14.1, Plt Count 126 L, Immature Gran % (Auto) 0.3 , Neut % (Auto) 64.0, Lymph % (Auto) 24.7, [place] % (Auto) 6.7, Eos % (Auto) 3.6, Baso % (Auto) 0.7, Immature Gran # (Auto) 0.0, Neut # (Auto) 4.5, Lymph # (Auto ) 1.7, [place] # (Auto) 0.5, Eos # (Auto) 0.3, Baso # (Auto) 0.1 ASSESSMENT: 1. Uncontrolled diabetes mellitus type 2 2. Leg edema 3. Dementia 4. Atrial fibrillation 5. Hypertension 6. History of CHF 7. Chronic kidney disease 8. History of DVT PLAN: 1. Lasix 20 mg daily 2. Chest x-ray 3. D/C IV fluids 4. Will reconcile home medication list Plan and coordination of the patient's care discussed in the presence of Insole Cementer and nurse. CONDITION: Stable SCRIBED BY: Suzanne MAYES scribed while in presence of service performed by Dr. Matos/Digna Quintero APRN on 12/13/17 ([id number])
[2017-12-13] MEDS ORDERED: NON-FORMULARY MEDICATION (Memantine Hcl/Donepezil Hcl [Namzaric 28 Mg-10 Mg Capsule] 1 EAC PO SCH (09:00)
[2017-12-13] MEDS ORDERED: NON-FORMULARY MEDICATION (Esomeprazole Magnesium [Nexium] 40 MG) PO SCH (09:00)
[2017-12-13] MEDS: ULTRAM PO SCH ×2 (09:24→21:14)
[2017-12-13] MEDS: COREG PO SCH ×2 (09:24→17:24)
[2017-12-13] MEDS: ARICEPT PO SCH (09:24)
[2017-12-13] MEDS: NAMENDA PO SCH ×2 (09:24→21:14)
[2017-12-13] MEDS: ELIQUIS PO SCH ×2 (09:25→21:14)
[2017-12-13] MEDS: PROTONIX PO SCH (09:25)
[2017-12-13] MEDS: LASIX TAB PO SCH (09:25)
[2017-12-13] MEDS: COZAAR PO SCH (09:25)
[2017-12-13] MEDS: ASPIRIN CHEWABLE PO SCH (09:25)
[2017-12-13] MEDS: LEVEMIR SUBCUT SCH ×2 (09:26→17:25)
--- NOTE | 2017-12-13 09:53 | PN ---
DATE OF SERVICE: 12/12/17 SUBJECTIVE: The patient was hospitalized in the emergency room because of change in the mental status. The patient also has uncontrolled diabetes. He is not taking his medications regularly for a number of years. The patient's family is unable to handle him at home. They would like to put him in the hospital and find out about his mental status and what could be done. The patient is not taking his Aricept and Namenda as prescribed in the past. He is not taking his insulin. PHYSICAL EXAMINATION: HEENT: Head normocephalic, atraumatic. Eyes: Extraocular muscles are intact. Pupils are equal, round and reactive to light and accommodation. Ears: No lesions. Nose appeared normal. Throat: No exudate or erythema. NECK: Supple. No JVD, no carotid bruit. No lymphadenopathy or thyromegaly. LUNGS: Clear to auscultation. Percussion note normal. Chest symmetrical. HEART: S1, S2, no S3. No murmurs. No cyanosis or clubbing. No ascites. Pulses: Dorsalis pedis and posterior tibial pulses +1 to +2 both sides. ABDOMEN: Soft. Nontender. Bowel sounds active. No CVA tenderness. No mass felt. EXTREMITIES: No edema. Full range of motion of all extremities, equal. NEUROLOGIC: No focal deficit. Cranial nerves II through XII are grossly intact. No headache, no double vision or headache. SKIN: Not dry. Intact. Turgor - normal. LYMPHATIC: No palpable lymph nodes/no lymphedema. MUSCULOSKELETAL: Normal joints with no swelling. Muscle tone is normal. LABS: All labs are acceptable except blood sugar of more than 300. ASSESSMENT: 1. WORSENING DEMENTIA 2. UNCONTROLLED DIABETES 3. HYPERTENSION 4. DYSLIPIDEMIA PLAN: 1. Admit the patient. 2. Start on Aricept and Namenda. 3. Check B12, TSH level. 4. Educate him about diabetes. 5. The family is wanting to put this patient in the jail. Will evaluate that. CONDITION: Stable. TIME SPENT: More than 30 minutes. Plan and coordination of the patient's care discussed in the presence of nurse. RAYMOND
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
--- NOTE | 2017-12-13 13:21 | DI ---
EXAM: Two views of the chest. History: Short of breath Comparison: Chest radiograph 09/22/2017 Findings: Heart size is borderline enlarged. No focal consolidation. No appreciable pleural fluid and no pneumothorax. No acute osseous abnormalities. Atherosclerotic vascular calcifications. Impression: Borderline cardiomegaly without acute disease in the chest.
[2017-12-13] MEDS: CRESTOR PO SCH (21:13)
[2017-12-13] MEDS: NEURONTIN PO SCH (21:14)
[2017-12-14] MEDS: PROTONIX PO SCH (06:11)
[2017-12-14] MEDS: LASIX TAB PO SCH (06:11)
--- NOTE | 2017-12-14 06:58 | HP ---
DATE OF SERVICE: 12/12/17 HISTORY OF PRESENT ILLNESS: This is an 87-year-old white male who was brought into the emergency room with altered mental status. He has been having some agitated episodes at home related to worsening dementia. He went outside last night at 3 a.m., was confused. They feel he has had an acute change. 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 No night sweats. No malaise, lethargy. No fever or chills. HEENT: Eyes: No visual changes. No eye pain. No eye discharge. ENT: No runny nose. No epistaxis. No sinus pain. No sore throat. No odynophagia. No ear pain. No congestion. RESPIRATORY: No cough, no congestion. No hemoptysis. No shortness of breath. CARDIOVASCULAR: No angina symptoms. No CHF symptoms. No atypical chest pain for CAD. No palpitations. No PND. No orthopnea. GASTROINTESTINAL: No abdominal pain. No nausea or vomiting. No diarrhea or constipation. No hematemesis. No hematochezia. GENITOURINARY: No urgency. No frequency. No dysuria. No hematuria. No obstructive symptoms. No discharge. No pain. No significant abnormal bleeding. MUSCULOSKELETAL: No musculoskeletal pain. No joint swelling. No arthritis. NEUROLOGICAL: No headache. No neck pain. No syncope. No seizures. No dizziness. PSYCHIATRIC: Agitated. No depression. No suicidal thoughts. No homicidal thoughts. SKIN: No rash. No lesions. No wounds. ENDOCRINE: No unexplained weight loss. No weight gain. HEMATOLOGIC/LYMPHATIC: No anemia. No purpura. No petechiae. No prolonged or excessive bleeding. No palpable lymph nodes. PERSONAL/FAMILY/SOCIAL HISTORY: The patient is a nonsmoker, currently lives at home with his . No alcohol or illicit drug use. MEDICATIONS: (HOME) Xanax 0.5 mg p.o. bedtime p.r.n. Crestor 10 mg p.o. bedtime Aspirin 81 mg p.o. daily Nexium 40 mg p.o. daily Gabapentin 300 mg p.o. bedtime Eliquis 2.5 mg p.o. b.i.d. Ultram 50 mg p.o. b.i.d. Memantine, HCI Donepezil HCI (Namzaric 28 mg - 10 mg) one each p.o. daily Levemir Flextouch 30 unit SQ b.i.d with meal Cozaar 100 mg p.o. daily Lasix 20 mg every other day p.r.n. ALLERGIES: CLARITHROMYCIN, LEVOFLOXACIN PHYSICAL EXAMINATION: GENERAL: The patient is pale with clammy skin. HEENT: Head normocephalic, atraumatic. Eyes: Extraocular muscles are intact. Pupils are equal, round and reactive to light and accommodation. Ears: No lesions. Nose appeared normal. Throat: No exudate or erythema. NECK: Supple. No JVD, no carotid bruit. No lymphadenopathy or thyromegaly. LUNGS: Diminished breath sounds. Clear to auscultation. Percussion note normal. Chest symmetrical. HEART: Irregular heart rate. S1, S2, no S3. No murmurs. No cyanosis or clubbing. No ascites. Pulses: Dorsalis pedis and posterior tibial pulses +1 to +2 bilaterally. ABDOMEN: Soft. Nontender. Bowel sounds active. No CVA tenderness. No mass felt. EXTREMITIES: +1 to +2 bilateral lower extremity edema. Full range of motion of all extremities, equal. NEUROLOGIC: No focal deficit. Cranial nerves II through XII are grossly intact. No headache, no double vision or headache. SKIN: Not dry. Intact. Turgor - normal. LYMPHATIC: No palpable lymph nodes/no lymphedema. MUSCULOSKELETAL: Normal joints with no swelling. Muscle tone is normal. White count 7, hemoglobin 10.6, hematocrit 32.6, platelets 126. Sodium 138, potassium 3.9, BUN 26, creatinine 1.6, glucose 330. CT of the brain was normal with no acute changes. ASSESSMENT: 1. UNCONTROLLED DIABETES MELLITUS TYPE 2 2. DEMENTIA WITH BEHAVIORAL DISTURBANCES INCLUDING AGITATION 3. CHRONIC KIDNEY DISEASE 4. ANEMIA 5. CHRONIC LEG EDEMA 6. GENERALIZED WEAKNESS 7. HYPERTENSION 8. DYSLIPIDEMIA PLAN: 1. Will admit. 2. Routine telemetry orders. 3. CBC, CMP daily. 4. Chest x-ray. 5. Normal Saline at 75 cc/hr. 6. Continue all home medications. 7. Elevate his legs. 8. Low salt diet. 9. Sliding scale insulin coverage. 10. Uncontrolled glucose likely due to medication noncompliance and confusion. He and his both have some degree of dementia I do believe and get confused on their medications. 11. PT/OT evaluation as he has a history of falls. TIME SPENT: More than 70 minutes. APRILD
[2017-12-14] MEDS ORDERED: K-DUR PO SCH (08:22)
[2017-12-14] MEDS ORDERED: K-DUR ONE (08:39)
[2017-12-14] MEDS ORDERED: ATIVAN ONE (08:40)
[2017-12-14] MEDS: NYSTOP POWDER TP SCH ×2 (08:41→20:23)
[2017-12-14] MEDS: ASPIRIN CHEWABLE PO SCH (08:42)
[2017-12-14] MEDS: COZAAR PO SCH (08:43)
[2017-12-14] MEDS: ARICEPT PO SCH (08:43)
[2017-12-14] MEDS: NAMENDA PO SCH ×2 (08:43→20:25)
[2017-12-14] MEDS: COREG PO SCH ×2 (08:43→16:44)
[2017-12-14] MEDS: ULTRAM PO SCH ×2 (08:43→20:21)
[2017-12-14] MEDS: ATIVAN PO SCH ×2 (08:43→20:22)
[2017-12-14] MEDS: MICRO-K CAP PO SCH (08:47)
[2017-12-14] MEDS: LEVEMIR SUBCUT SCH ×2 (08:47→16:45)
[2017-12-14] MEDS: ELIQUIS PO SCH ×2 (08:48→20:22)
[2017-12-14] MEDS: HUMULIN R SUBCUT PRN ×2 (10:40→21:00)
--- NOTE | 2017-12-14 11:30 | PCM.PROG ---
Attending Provider: ATTENDING PROVIDER: Dr. SHOAIB MATOS This patient is seen with Digna Quintero, Nurse Practitioner. DATE OF SERVICE: 12/14/17 SUBJECTIVE: This 87 year old WHITE/ M was hospitalized 12/12/17. The patient is sitting in chair, alert. He is anxious and did not sleep well. He was anxious yesterday and up and about wandering the halls. REVIEW OF SYSTEMS: CONSTITUTIONAL: Weakness. No night sweats. No malaise, lethargy. No fever or chills. HEENT: Eyes: No visual changes. No eye pain. No eye discharge. ENT: No runny nose. No epistaxis. No sinus pain. No odynophagia. No congestion. RESPIRATORY: No cough, no congestion. No hemoptysis. No shortness of breath. CARDIOVASCULAR: No angina symptoms. No CHF symptoms. No atypical chest pain for CAD. No palpitations. No orthopnea.. GASTROINTESTINAL: No abdominal pain. No nausea or vomiting. No diarrhea or constipation. No hematemesis. No hematochezia. GENITOURINARY: No urgency. No frequency. No dysuria. No hematuria. No obstructive symptoms. No discharge. No pain. No significant abnormal bleeding. MUSCULOSKELETAL: No musculoskeletal pain; no joint swelling. NEUROLOGICAL: Confusion. No headache. No neck pain. No syncope. No seizures. No dizziness. PSYCHIATRIC: Anxious. No depression. No suicidal thoughts. No homicidal thoughts. SKIN: No rash. No lesions. No wounds. ENDOCRINE: No unexplained weight loss. No weight gain. HEMATOLOGIC/LYMPHATIC: No anemia. No purpura. No petechiae. No prolonged or excessive bleeding. No palpable lymph nodes. PHYSICAL EXAMINATION: GENERAL: The patient is awake, alert, oriented to person only, sitting in chair in no distress. VITAL SIGNS: Temperature 98.8 F, Pulse 71, Respiratory Rate 18, BP 107/59, Pulse Ox 100% HEENT: Head normocephalic, atraumatic. Eyes: Extraocular muscles are intact. Pupils are equal, round and reactive to light and accommodation. Ears: No lesions. Nose appeared normal. Throat: No exudate or erythema. NECK: Supple. No JVD, no carotid bruit. No lymphadenopathy or thyromegaly. LUNGS: Diminished breath sounds. Clear to auscultation. Percussion note normal. Chest symmetrical. HEART: Irregular heart rate. S1, S2, no S3. No murmurs. No cyanosis or clubbing. No ascites. Pulses: Dorsalis pedis and posterior tibial pulses +1 to +2 both sides. ABDOMEN: Soft. Non-tender. Bowel sounds active. No CVA tenderness. No mass felt. EXTREMITIES: Trace bilateral leg edema. Full range of motion of all extremities, equal. NEUROLOGIC: No focal deficit. Cranial nerves II through XII are grossly intact. No headache, no double vision or headache. SKIN: Not dry. Intact. Turgor-normal. LYMPHATIC: No palpable lymph nodes/no lymphedema. MUSCULOSKELETAL: Normal joints with no swelling. Muscle tone is normal. LAB REVIEW: 12/14/17 04:30 12/14/17 04:30 12/14/17 04:30: Sodium 138, Potassium 3.7, Chloride 102, Carbon Dioxide 31 H, Anion Gap 8.7, BUN 23 H, Creatinine 1.72 H, Estimated GFR (MDRD) 38.00, BUN/ Creatinine Ratio 13.37, Glucose 127 H, Calcium 9.0, Total Bilirubin 1.0, AST 19 , ALT 10, Alkaline Phosphatase 67, Total Protein 6.2 L, Albumin 3.3 L, Globulin 2.9, Albumin/Globulin Ratio 1.14 12/14/17 04:30: WBC 9.34, RBC 3.92 L, Hgb 11.0 L, Hct 33.7 L, MCV 86.0, MCH 28.1 , MCHC 32.6, RDW Coeff of Danielle 14.1, Plt Count 130 L, Immature Gran % (Auto) 0.2 , Neut % (Auto) 73.7, Lymph % (Auto) 16.9, Union % (Auto) 5.9, Eos % (Auto) 2.9, Baso % (Auto) 0.4, Immature Gran # (Auto) 0.0, Neut # (Auto) 6.9, Lymph # (Auto ) 1.6, Union # (Auto) 0.6, Eos # (Auto) 0.3, Baso # (Auto) 0.0 ASSESSMENT: 1. Uncontrolled diabetes mellitus type 2 2. Leg edema 3. Dementia with behavioral disturbances 4. Atrial fibrillation 5. Hypertension 6. History of CHF 7. Chronic kidney disease 8. History of DVT PLAN: 1. D/C Xanax 2. Ativan b.i.d. Plan and coordination of the patient's care discussed in the presence of [employer] and nurse. CONDITION: Stable SCRIBED BY: ERNESTINE MANRIQUE Mobile Marketing Manager scribed while in presence of service performed by Dr. Matos/Digna Quintero APRN on 12/14/17 ([id number])
[2017-12-14] MEDS: CRESTOR PO SCH (20:22)
[2017-12-14] MEDS: NEURONTIN PO SCH (20:25)
[2017-12-15] MEDS: PROTONIX PO SCH (06:34)
[2017-12-15] MEDS: LASIX TAB PO SCH (06:34)
[2017-12-15] MEDS ORDERED: SEROQUEL PO SCH (09:00)
[2017-12-15] MEDS ORDERED: SODIUM CHLORIDE 1,000 ML IV SCH (09:00)
[2017-12-15] MEDS: COREG PO SCH (09:31)
[2017-12-15] MEDS: NYSTOP POWDER TP SCH (09:31)
[2017-12-15] MEDS: ELIQUIS PO SCH (09:31)
[2017-12-15] MEDS: COZAAR PO SCH (09:32)
[2017-12-15] MEDS: ARICEPT PO SCH (09:32)
[2017-12-15] MEDS: ASPIRIN CHEWABLE PO SCH (09:33)
[2017-12-15] MEDS: ULTRAM PO SCH (09:33)
[2017-12-15] MEDS: NAMENDA PO SCH (09:33)
[2017-12-15] MEDS: LEVEMIR SUBCUT SCH (09:34)
[2017-12-15] MEDS: MICRO-K CAP PO SCH (09:40)
[2017-12-15] MEDS: ATIVAN PO SCH (09:44)
--- NOTE | 2017-12-15 10:28 | PCM.PROG ---
Attending Provider: ATTENDING PROVIDER: Dr. SHOAIB MATOS This patient is seen with Digna Quintero, Nurse Practitioner. DATE OF SERVICE: 12/15/17 SUBJECTIVE: This 87 year old WHITE/ M was hospitalized 12/12/17. The patient is sitting in chair resting comfortably this a.m. He had some wandering last night with no combativeness. He is still confused consistent with advancing dementia. He is eating well. Kidney function is elevated likely due to insult from increasing Lasix. Urinary output is good. REVIEW OF SYSTEMS: CONSTITUTIONAL: No night sweats. No fatigue, malaise, lethargy. No fever or chills. HEENT: Eyes: No visual changes. No eye pain. No eye discharge. ENT: No runny nose. No epistaxis. No sinus pain. No odynophagia. No congestion. RESPIRATORY: No cough, no congestion. No hemoptysis. No shortness of breath. CARDIOVASCULAR: No angina symptoms. No CHF symptoms. No atypical chest pain for CAD. No palpitations. No orthopnea.. GASTROINTESTINAL: No abdominal pain. No nausea or vomiting. No diarrhea or constipation. No hematemesis. No hematochezia. GENITOURINARY: No urgency. No frequency. No dysuria. No hematuria. No obstructive symptoms. No discharge. No pain. No significant abnormal bleeding. MUSCULOSKELETAL: No musculoskeletal pain; no joint swelling. NEUROLOGICAL: Awake with confusion. No headache. No neck pain. No syncope. No seizures. No dizziness. PSYCHIATRIC: Not anxious. No depression. No suicidal thoughts. No homicidal thoughts. SKIN: No rash. No lesions. No wounds. ENDOCRINE: No unexplained weight loss. No weight gain. HEMATOLOGIC/LYMPHATIC: No anemia. No purpura. No petechiae. No prolonged or excessive bleeding. No palpable lymph nodes. PHYSICAL EXAMINATION: GENERAL: The patient is awake, alert and oriented to person, sitting in chair in no distress. VITAL SIGNS: Temperature 98.0 F, Pulse 66, Respiratory Rate 16, BP 122/53, Pulse Ox 98% HEENT: Head normocephalic, atraumatic. Eyes: Extraocular muscles are intact. Pupils are equal, round and reactive to light and accommodation. Ears: No lesions. Nose appeared normal. Throat: No exudate or erythema. NECK: Supple. No JVD, no carotid bruit. No lymphadenopathy or thyromegaly. LUNGS: Diminished breath sounds with trace bilateral leg edema. Clear to auscultation. Percussion note normal. Chest symmetrical. HEART: S1, S2, no S3. No murmurs. No cyanosis or clubbing. No ascites. Pulses: Dorsalis pedis and posterior tibial pulses +1 to +2 both sides. ABDOMEN: Soft. Non-tender. Bowel sounds active. No CVA tenderness. No mass felt. EXTREMITIES: No edema. Full range of motion of all extremities, equal. NEUROLOGIC: No focal deficit. Cranial nerves II through XII are grossly intact. No headache, no double vision or headache. SKIN: Not dry. Intact. Turgor-normal. LYMPHATIC: No palpable lymph nodes/no lymphedema. MUSCULOSKELETAL: Normal joints with no swelling. Muscle tone is normal. LAB REVIEW: 12/15/17 04:40 12/15/17 04:40 12/15/17 04:40: Sodium 136 L, Potassium 3.9, Chloride 101, Carbon Dioxide 30, Anion Gap 8.9, BUN 31 H, Creatinine 2.24 H D, Estimated GFR (MDRD) 28.00, BUN/ Creatinine Ratio 13.83, Glucose 101, Calcium 8.3 L, Total Bilirubin 0.8, AST 21 , ALT 10, Alkaline Phosphatase 65, Total Protein 6.3, Albumin 3.2 L, Globulin 3.1, Albumin/Globulin Ratio 1.03 12/15/17 04:40: WBC 9.92, RBC 3.75 L, Hgb 10.8 L, Hct 32.4 L, MCV 86.4, MCH 28.8 , MCHC 33.3, RDW Coeff of Danielle 14.1, Plt Count 115 L, Immature Gran % (Auto) 0.3 , Neut % (Auto) 69.5, Lymph % (Auto) 18.3, Nicholas % (Auto) 8.2, Eos % (Auto) 3.3, Baso % (Auto) 0.4, Immature Gran # (Auto) 0.0, Neut # (Auto) 6.9, Lymph # (Auto ) 1.8, Nicholas # (Auto) 0.8, Eos # (Auto) 0.3, Baso # (Auto) 0.0 12/14/17 04:30: Vitamin B12 > 1000 H ASSESSMENT: 1. Uncontrolled diabetes mellitus type 2 2. Leg edema 3. Dementia with behavioral disturbances 4. Atrial fibrillation 5. Hypertension 6. History of CHF 7. Chronic kidney disease 8. History of DVT PLAN: 1. Seroquel 12.5 mg twice a day 2. Restart fluids NS @ 100 mL/hr 3. Lasix every other day. 4. Elevation in kidney function likely due to increase in Lasix. 5. Uncontrolled blood sugar on admission likely due to noncompliance with meds at home. 6. Conditions have improved in a controlled environment with correct medication administration. 7. Confusion is due to the natural disease process of dementia. 8. Anticipate placement to [facility] today or tomorrow. Plan and coordination of the patient's care discussed in the presence of Facer Operator and nurse. CONDITION: Stable SCRIBED BY: David MAYESist scribed while in presence of service performed by Dr. Matos/Digna Quintero APRN on 12/15/17 ([id number])
--- NOTE | 2017-12-15 14:07 | CM.DICTOOL ---
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, X-RAY L-SPINE BURSITIS, RIGHT SHOULDER ANXIETY DEMENTIA HISTORY OF DVT, RIGHT LOWER EXTREMITY BPH CATARACT EXTRACTION, 2003 NEVER SMOKER LAST PFT COMPLETED AT [facility], 05/24/17 SEVERE COPD LAST ECHO AT [facility], 09/12/17 LVH WITH ENLARGED LEFT ATRIAL CAVITY LEFT VENTRICULAR CONTRACTILITY 57% - NORMAL BORDERLINE ENLARGED RIGHT VENTRICULAR CAVITY NORMAL VALVES LAST VITALS Temp Pulse Resp BP Pulse Ox 98.2 F 69 20 131/60 95 12/15/17 09:58 12/15/17 09:58 12/15/17 09:58 12/15/17 09:58 12/15/17 09:58 TAKE THESE MEDICATIONS AT HOME Apixaban (Eliquis) 2.5 mg PO BID [facility] Last Admin: 12/15/17 09:31 Dose: 2.5 mg Aspirin (Aspirin Chewable) 81 mg PO DAILYWM [facility] Last Admin: 12/15/17 09:33 Dose: 81 mg Carvedilol (Coreg) 6.25 mg PO BIDWM [facility] Last Admin: 12/15/17 09:31 Dose: 6.25 mg Donepezil HCl (Aricept) 10 mg PO DAILY [facility] Last Admin: 12/15/17 09:32 Dose: 10 mg Furosemide (Lasix Tab) 20 mg PO MOWEFRSA [facility] Gabapentin (Neurontin) 300 mg PO BEDTIME [facility] Last Admin: 12/14/17 20:25 Dose: 300 mg Insulin Detemir (Levemir) 30 unit SUBCUT BIDWM [facility] Last Admin: 12/15/17 09:34 Dose: 30 unit Insulin Human Regular (Humulin R) 0 unit SUBCUT PRN PRN; Protocol PRN Reason: Hyperglycemia Last Admin: 12/14/17 21:00 Dose: 3 unit Lorazepam (Ativan) 1 mg PO BID [facility] Last Admin: 12/15/17 09:44 Dose: 1 mg Losartan Potassium (Cozaar) 100 mg PO DAILY [facility] Last Admin: 12/15/17 09:32 Dose: 100 mg Memantine (Namenda) 10 mg PO BID [facility] Last Admin: 12/15/17 09:33 Dose: 10 mg Nystatin (Nystop Powder) 1 applic TP BID [facility] Last Admin: 12/15/17 09:31 Dose: 1 applic to left abdominal fold Potassium Chloride (Micro-K Cap) 10 meq PO MOWEFRSA [facility] Last Admin: 12/15/17 09:33 Dose: 10 meq Quetiapine Fumarate (Seroquel) 12.5 mg PO BID [facility] Last Admin: 12/15/17 09:32 Dose: 12.5 mg Rosuvastatin Calcium (Crestor) 10 mg PO BEDTIME [facility] Last Admin: 12/14/17 20:22 Dose: 10 mg Tramadol HCl (Ultram) 50 mg PO BID [facility] Last Admin: 12/15/17 09:33 Dose: 50 mg ALLERGIES clarithromycin [From Biaxin] Adverse Reaction (Verified 12/12/17 12:14) levofloxacin [From Levaquin] Adverse Reaction (Verified 12/12/17 12:14) NEW PRESCRIPTIONS: Carvedilol [Coreg] 6.25 mg PO BIDWM #60 tablet 12/15/17 Lorazepam [Ativan] 1 mg PO BID #60 tablet 12/15/17 Nystatin [Nystop Powder] 1 applic TP BID #1 applic 12/15/17 Potassium Chloride [Micro-K Cap] 10 meq PO MOWEFRSA #16 capsule.er 12/15/17 Quetiapine Fumarate [Seroquel] 12.5 mg PO BID #60 tablet 12/15/17 SMOKING: NEVER SMOKER LAB REVIEW: 12/15/17 04:40 12/15/17 04:40 12/15/17 04:40: Sodium 136 L, Potassium 3.9, Chloride 101, Carbon Dioxide 30, Anion Gap 8.9, BUN 31 H, Creatinine 2.24 H D, Estimated GFR (MDRD) 28.00, BUN/ Creatinine Ratio 13.83, Glucose 101, Calcium 8.3 L, Total Bilirubin 0.8, AST 21 , ALT 10, Alkaline Phosphatase 65, Total Protein 6.3, Albumin 3.2 L, Globulin 3.1, Albumin/Globulin Ratio 1.03 12/15/17 04:40: WBC 9.92, RBC 3.75 L, Hgb 10.8 L, Hct 32.4 L, MCV 86.4, MCH 28.8 , MCHC 33.3, RDW Coeff of Danielle 14.1, Plt Count 115 L, Immature Gran % (Auto) 0.3 , Neut % (Auto) 69.5, Lymph % (Auto) 18.3, [place] % (Auto) 8.2, Eos % (Auto) 3.3, Baso % (Auto) 0.4, Immature Gran # (Auto) 0.0, Neut # (Auto) 6.9, Lymph # (Auto ) 1.8, [place] # (Auto) 0.8, Eos # (Auto) 0.3, Baso # (Auto) 0.0 PLAN: DISCHARGE TO [facility] TODAY, 12/15/17 DR. MATOS/YOANDY WILL CONTINUE TO SEE THIS PATIENT DURING USUAL DETENTION ROUNDS IN ONE WEEK RESUME YOUR HOME MEDICATIONS AT THE DETENTION PER LIST PROVIDED BY THE NURSING STAFF NEW MEDICATIONS SEROQUEL 12.5 MG PO BID MICRO-K 10 MEQ PO EVERY OTHER DAY, MONDAY, MONDAY, MONDAY AND MONDAY CARVEDILOL (CORET) 6.25 MG PO BID WITH MEALS LORAZEPAM (ATIVAN) 1 MG PO BID [facility] POWDER 1 APPLICATION TOPICALLY BID (LEFT ABDOMINAL FOLD) DIET CONSISTENT [employer]BS [employer] DEPARTMENT SUPERVISOR PLEASE CONSULT TO PROVIDE FOR OPTIMAL NUTRITIONAL NEEDS ACTIVITY MAY PARTICIPATE IN DETENTION ACTIVITY PROGRAM TOLERATED PT/OT PLEASE EVALUATE AND TREAT INDICATED LABS CBC WITH DIFF AND CMP ON 12/18/17 ACCU-CHECKS ACHS COVER WITH DR. MATOS'S SLIDING SCALE COVERAGE REGULAR INSULIN V/S DAILY (ANTIHYPERTENSIVE MEDICATIONS CHANGED DURING HOSPITALIZATION) SUMMARY THE PATIENT IS ALERT AND ORIENTED TO PERSON. HE IS PLEASANT AND COOPERATIVE FOR CARE. HE CURRENTLY RESIDES AT HOME WITH HIS ELDERLY SPOUSE. HE HAS BEEN INDEPENDENT WITH ADL'S AT HOME UNTIL RECENTLY. HIS DEMENTIA HAS PROGRESSED CAUSING HIM TO REQUIRE MORE ASSISTANCE WITH ADL'S. AT HOME HE HAS A WALKER, WHEELCHAIR, SHOWER CHAIR AND GLUCOMETER WITH TESTING SUPPLIES. HE HAS USED [facility] AND [facility] IN THE PAST, BUT HAS NONE NOW. THE SKIN TURGOR IS INTACT AND WITHOUT DECUBITUS ULCERS. THE ABDOMINAL FOLD ON THE LEFT HAS SOME EXCORIATION. THE PATIENT WILL REQUIRE CONTINUED TREATMENT WITH THE NYSTOP FOR THAT AREA. HYDRATION AND NUTRITIONAL STATUS ARE BOTH IMPROVED AT DISCHARGE. THE PATIENT IS AWARE AND AGREEABLE FOR TODAY'S DISCHARGE PLANS. WE WILL FOLLOW HIM AT THE DETENTION DURING USUAL DETENTION ROUNDS. CODE STATUS DO NOT INTUBATE, CPR ONLY YOANDY LUZ, VEGETABLE HARVEST MACHINE OPERATOR SHOAIB MATOS M.D.
[2017-12-15 14:47] VITALS: BP 138/65; TEMP 97.9
[2017-12-16] MEDS ORDERED: LASIX TAB PO SCH (06:00)
[2017-12-16] MEDS ORDERED: MICRO-K CAP PO SCH (08:00)
--- NOTE | 2017-12-18 06:37 | PN ---
DATE OF SERVICE: 12/13/17 SUBJECTIVE: Lalo Naranjo was seen and examined today with the nurse practitioner. The patient is alert, seems to be disoriented, oriented to place and person, time and date. REVIEW OF SYSTEMS: CONSTITUTIONAL: No night sweats. No fatigue, malaise, lethargy. No fever or chills. HEENT: Eyes: No visual changes. No eye pain. No eye discharge. ENT: No runny nose. No epistaxis. No sinus pain. No sore throat. No odynophagia. No congestion. RESPIRATORY: No cough, no congestion. No hemoptysis. No shortness of breath. CARDIOVASCULAR: No angina symptoms. No CHF symptoms. No atypical chest pain for CAD. No palpitations. No orthopnea. GASTROINTESTINAL: No abdominal pain. No nausea or vomiting. No diarrhea or constipation. No hematemesis. No hematochezia. GENITOURINARY: No urgency. No frequency. No dysuria. No hematuria. No obstructive symptoms. No discharge. No pain. No significant abnormal bleeding. MUSCULOSKELETAL: No musculoskeletal pain; no joint swelling. NEUROLOGICAL: Forgetfulness. No headache. No neck pain. No syncope. No seizures. No dizziness. PSYCHIATRIC: Not anxious. No depression. No suicidal thoughts. No homicidal thoughts. SKIN: No rash. No lesions. No wounds. ENDOCRINE: No unexplained weight loss. No weight gain. HEMATOLOGIC/LYMPHATIC: No anemia. No purpura. No petechiae. No prolonged or excessive bleeding. No palpable lymph nodes. PHYSICAL EXAMINATION: VITAL SIGNS: BP is mildly elevated. HEENT: Head normocephalic, atraumatic. Eyes: Extraocular muscles are intact. Pupils are equal, round and reactive to light and accommodation. Ears: No lesions. Nose appeared normal. Throat: No exudate or erythema. NECK: Supple. No JVD, no carotid bruit. No lymphadenopathy or thyromegaly. LUNGS: Clear to auscultation. Percussion note normal. Chest symmetrical. HEART: Decreased breath sounds but clear. S1, S2, no S3. No murmurs. No cyanosis or clubbing. No ascites. Pulses: Dorsalis pedis and posterior tibial pulses +1 to +2 both sides. ABDOMEN: Soft. Nontender. Bowel sounds active. No CVA tenderness. No mass felt. EXTREMITIES: No edema. Full range of motion of all extremities, equal. NEUROLOGIC: No focal deficit. Cranial nerves II through XII are grossly intact. No headache, no double vision or headache. SKIN: Not dry. Intact. Turgor - normal. LYMPHATIC: No palpable lymph nodes/no lymphedema. MUSCULOSKELETAL: Normal joints with no swelling. Muscle tone is normal. LABS: The patient's blood sugar was 133 this morning with creatinine 1.4, BUN 19. All the labs are acceptable. ASSESSMENT: 1. Blood pressure is mildly elevated, will use Coreg. PLAN: 1. Chest x-ray. 2. The patient's condition is stable. He is being prepared to go to the detention. EDUCATION CARRIED OUT ABOUT: Diabetes mellitus, dementia discussed. TIME SPENT: More than 30 minutes. Plan and coordination of the patient's care discussed in the presence of nurse. RAYMOND
--- NOTE | 2017-12-18 08:22 | PTDC ---
Date of Evaluation:12/12/17 Diagnosis:[uncontrolled DM and dementia.] Number of visits:[] Last Date of Service:[12/15/17] Reason For Discharge:[DC TO [facility]] Discharge Summary:[Pt made significant improvement with gait and transfer ability. pt amb with rwx 150ft with CGA. pt amb with flexed posture, decreased step length. pt requires assist to guide rwx. pt progress is limited due to cognitive issues. pt unable to recall safety instructions. ] APRILD
--- NOTE | 2017-12-18 08:39 | DS ---
DATE OF SERVICE: 12/15/17 FINAL DIAGNOSIS: UNCONTROLLED DM, TYPE 2 DEMENTIA WITH BEHAVIOR DISTRUBANCES, PROGRESSING UTI, E-COLI ORGANISM, 09/25 ACUTE COLITIS, (09/06/17 TO 09/12/[address] 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, 05/24/17 SEVERE COPD LAST ECHO AT [facility], 09/12/17 LVH WITH ENLARGED LEFT ATRIAL CAVITY LEFT VENTRICULAR CONTRACTILITY 57% - NORMAL BORDERLINE ENLARGED RIGHT VENTRICULAR CAVITY NORMAL VALVES LAST VITALS: Temp Pulse Resp BP Pulse Ox 98.2 F 69 20 131/60 95 TAKE THESE MEDICATIONS AT HOME: Apixaban (Eliquis) 2.5 mg PO BID [facility] Aspirin (Aspirin Chewable) 81 mg PO DAILYWM [facility] Carvedilol (Coreg) 6.25 mg PO BIDWM [facility] Donepezil HCl (Aricept) 10 mg PO DAILY [facility] Furosemide (Lasix Tab) 20 mg PO MOWEFRSA [facility] Gabapentin (Neurontin) 300 mg PO BEDTIME [facility] Insulin Detemir (Levemir) 30 unit SUBCUT BIDWM [facility] Insulin Human Regular (Humulin R) 0 unit SUBCUT PRN PRN; Protocol Lorazepam (Ativan) 1 mg PO BID [facility] Losartan Potassium (Cozaar) 100 mg PO DAILY [facility] Memantine (Namenda) 10 mg PO BID [facility] Nystatin (Nystop Powder) 1 applic TP BID [facility] Potassium Chloride (Micro-K Cap) 10 meq PO MOWEFRSA [facility] Quetiapine Fumarate (Seroquel) 12.5 mg PO BID [facility] Rosuvastatin Calcium (Crestor) 10 mg PO BEDTIME [facility] Tramadol HCl (Ultram) 50 mg PO BID [facility] ALLERGIES: clarithromycin [From Biaxin] Adverse Reaction (Verified 12/12/17 12:14) levofloxacin [From Levaquin] Adverse Reaction (Verified 12/12/17 12:14) NEW PRESCRIPTIONS: Carvedilol [Coreg] 6.25 mg PO BIDWM #60 tablet 12/15/17 Lorazepam [Ativan] 1 mg PO BID #60 tablet 12/15/17 Nystatin [Nystop Powder] 1 applic TP BID #1 applic 12/15/17 Potassium Chloride [Micro-K Cap] 10 meq PO MOWEFRSA #16 capsule.er 12/15/17 Quetiapine Fumarate [Seroquel] 12.5 mg PO BID #60 tablet 12/15/17 SMOKING: NEVER SMOKER PLAN: DISCHARGE TO [facility] TODAY, 12/15/17 DR. MATOS/YOANDY WILL CONTINUE TO SEE THIS PATIENT DURING USUAL ASSISTED ROUNDS IN ONE WEEK RESUME YOUR HOME MEDICATIONS AT THE ASSISTED PER LIST PROVIDED BY THE NURSING STAFF DIET CONSISTENT CARBS MEDIA REPORTER PLEASE CONSULT TO PROVIDE FOR OPTIMAL NUTRITIONAL NEEDS ACTIVITY MAY PARTICIPATE IN ASSISTED ACTIVITY PROGRAM TOLERATED PT/OT PLEASE EVALUATE AND TREAT INDICATED LABS CBC WITH DIFF AND CMP ON 12/18/17 ACCU-CHECKS ACHS COVER WITH DR. MATOS'S SLIDING SCALE COVERAGE REGULAR INSULIN V/S DAILY (ANTIHYPERTENSIVE MEDICATIONS CHANGED DURING HOSPITALIZATION) HOSPITAL COURSE: This is an 87 year old white male who presented to the emergency room with acute confusion and change in mental status. He has a history of diabetes mellitus type 2 and dementia. He was rather agitated and felt that the dementia was advancing. CT scan of the brain showed no acute processes however his glucose was greater than 350 in the emergency room. He also had worsening leg edema which he does have chronically. He and his are both in poor health and it is thought that he is likely had poor medication compliance at home due to confusion. He was admitted and placed on IV fluids normal saline at 75cc an hour due to his elevated renal function. He was placed on sliding scale for insulin coverage and all his home medications were continued. His family had stopped his Aricept and Namenda at home and this was restarted in the hospital. He did have some bouts of agitation. Previously he was on Xanax 0.5mg at night and we changed this to Ativan 1mg PO twice a day. He also has had a few instances of wondering while in the hospital and agitation which was not controlled just with the change in the Ativan so we placed him on Seroquel 12.5mg twice a day. Due to his leg edema at home the order was for him to be on Lasix 20mg PO every other day PRN. He had 2-3+ leg edema on admission so we placed him on 20mg of Lasix daily along with 10meq of Potassium daily. His leg edema did improve and his kidney function became slightly more elevated likely due to acute insult from the increase in diuretic so we backed off the diuretic and he will receive Lasix every other day from now on. We rehydrated and restarted his IV fluids at 100cc for about 6 hours. His family has decided that due to his worsening dementia and behavior disturbances he is no longer able to be cared for at home, he is a fall risk, he is weak, he gets up and he is confused so he is going to be going to [facility]. All of his other medications have been continued. He is going there today. He will have a repeat CBC and CMP on Monday and I will followup with him at the long term. He is discharged in stable condition. TIME SPENT: More than 60 minutes. RAYMOND
--- NOTE | 2017-12-18 09:11 | OTDC ---
Date of Evaluation:12/12/17 Diagnosis:[Muscle weakness, confusion] Number of visits:[] Last Date of Service:[12/14/17] Reason For Discharge:[Pt discharged to [facility] due to confusion and dementia.] Discharge Summary:[Pt walking around without assistive device. Pt is not safe and is unsteady. Pt independent with self feeding. Pt is confused. ] MTDD
--- NOTE | 2017-12-18 09:14 | OTDC ---
Date of Evaluation:12/12/17 Diagnosis:[] Number of visits:[] Last Date of Service:[] Reason For Discharge:[] Discharge Summary:[] MTDD
== END 2017-12-15 16:08 | DRG 884 ==
LOC: ED 12:01 → MEDSURG B 15:44
PROVIDERS: ADMIT Internal Medicine; ATTEND Internal Medicine
DX: F03.91 Unspecified dementia, unspecified severity, with behavioral disturbance (principal); N39.0 Urinary tract infection, site not specified; I10 Essential (primary) hypertension; I50.9 Heart failure, unspecified; I73.9 Peripheral vascular disease, unspecified; I25.10 Atherosclerotic heart disease of native coronary artery without angina pectoris; I48.91 Unspecified atrial fibrillation; E11.9 Type 2 diabetes mellitus without complications; E78.5 Hyperlipidemia, unspecified; R60.0 Localized edema; R53.1 Weakness; R63.4 Abnormal weight loss; K52.9 Noninfective gastroenteritis and colitis, unspecified; K21.9 Gastro-esophageal reflux disease without esophagitis; N18.9 Chronic kidney disease, unspecified; B96.20 Unspecified Escherichia coli [E. coli] as the cause of diseases classified elsewhere; J44.9 Chronic obstructive pulmonary disease, unspecified; D64.9 Anemia, unspecified; G47.30 Sleep apnea, unspecified; F41.8 Other specified anxiety disorders; Z79.4 Long term (current) use of insulin; Z79.01 Long term (current) use of anticoagulants
CPT/HCPCS: 36415; 80053; 81001; 82550; 82607; 82962; 83036; 84443; 85025; 93005; 93010; 99284